=== PATIENT | female | born 1950 | race Two or more races ===

== ENCOUNTER 2024-08-24 03:20 | Inpatient (IN) | payer OTHER, MEDICAID ==
[~2024-08-24] VITALS: Ht 165.1 cm; Wt 68.5 kg
[~2024-08-24 03:20] MED LIST: ACYC1TAB2 PO; ASPI81CH59 PO; ENAL1TAB48 PO; GABA800T97 PO; GLIP5TAB21 PO; HYDR-4798 PO; LIDO1PAD55 EX; MET25T PO; NIFE1TAB31 PO; PANT40TA57 PO; ROSU10TA16 PO
[2024-08-24 04:00] VITALS: PULSE 99; RESP 22; O2SAT 95
--- NOTE | 2024-08-24 04:15 | ED.PDOC ---
Altered Mental Status HPI Comments 73-year-old female brought in by EMS presents with a chief complaint of ALOC x 1 hour with cough and foul smelling urine. Per EMS, patients daughter found patient urinating in the doorway and states that it had a foul odor to it. Patient is normally A/Ox4 at baseline, but cannot recall her birthday, the day of the week, what next month is, or who the president is. Patient was febrile per EMS at 100F. Blood sugar on arrival was 193. Chief Complaint: ALOC Time Seen by MD: 03:31 Reviewed Notes: Medications, Allergies Allergies: Coded Allergies: NO KNOWN ALLERGIES (Unverified , 08/24/24) Information Source: Emergency Med Personnel Mode of Arrival: EMS Severity: Unable to Care for Self Timing: Hours Duration: Since onset Prehospital treatment: Accucheck (193) Quality: Change in Behavior, Confusion Recent: None Past Medical History PAST MEDICAL HISTORY: DM, High Lipids, HTN Surgical History: Denies all surgeries GAS MAKER History: Denies all GAS MAKER Hx Family History Family History: Reviewed,noncontributory to illness Social History Smoker: Non-Smoker Alcohol: Denies ETOH Use Drugs: Denies Drug Use Lives In: Home Constitutional: denies: chills, diaphoresis, fatigue, fever, malaise, sweats, weakness, others EENTM: denies: blurred vision, double vision, ear bleeding, ear discharge, ear drainage, ear pain, ear ringing, eye pain, eye redness, hearing loss, mouth pain, mouth swelling, nasal discharge, nose bleeding, nose congestion, nose pain, photophobia, tearing, throat pain, throat swelling, voice changes, others Respiratory: reports: cough; denies: hemoptysis, orthopnea, SOB at rest, shortness of breath, SOB with excertion, stridor, wheezing, others Cardiovascular: denies: chest pain, dizzy spells, diaphoresis, Dyspnea on exertion, edema, irregular heart beat, left arm pain, lightheadedness, palpitations, PND, syncope, others Gastrointestinal: denies: abdomen distended, abdominal pain, blood streaked bowels, constipated, diarrhea, dysphagia, difficulty swallowing, hematemesis, melena, nausea, poor appetite, poor fluid intake, rectal bleeding, rectal pain, vomiting, others Genitourinary: reports: others (Foul Odor Urine ); denies: abnormal vagina bleeding, burning, dyspareunia, dysuria, flank pain, frequency, hematuria, incontinence, pain, , vagina discharge, urgency Neurological: denies: dizziness, fainting, headache, left sided numbness, left sided weakness, numbness, paresthesia, pre-existing deficit, right sided numbness, right sided weakness, seizure, speech problems, tingling, tremors, weakness, others Musculoskeletal: denies: back pain, gout, joint pain, joint swelling, muscle pain, muscle stiffness, neck pain, others Integumetry: denies: bruises, change in color, change in hair/nails, dryness, laceration, lesions, lumps, rash, wounds, others Allergic/Immunocompromised: denies: Difficulty Healing, Frequent Infections, Hives, Itching, others Hematologic/Lymphatic: denies: anemia, blood clots, easy bleeding, easy bruising, swollen glands, others Endocrine: denies: excessive hunger, excessive sweating, excessive thirst, excessive urination, flushing, intolerance to cold, intolerance to heat, unexplained weight gain, unexplained weight loss, others Psychiatric: denies: anxiety, bipolar disorder, depression, hopeless, panic disorder, schizophrenia, sleepless, suicidal, others Unable to Obtain due to: Altered Mental Status All Other Systems: Reviewed and Negative Physical Exam General Appearance: No Apparent Distress, Normal HEENT: Normal ENT Inspection, Pharynx Normal, TMs Normal Neck: Full Range of Motion, Non-Tender, Normal, Normal Inspection Respiratory: Chest Non-Tender, Lungs Clear, No Accessory Muscle Use, No Respiratory Distress, Normal Breath Sounds Cardiovascular: No Edema, No JVD, No Murmur, No Gallop, Normal Peripheral Pulses, Regular Rate/Rhythm Breast Exam: Deferred Gastrointestinal: No Organomegaly, Non Tender, No Pulsatile Mass, Normal Bowel Sounds, Soft Genitalia: Deferred Pelvic: Deferred Rectal: Deferred Extremities: No calf tenderness, Normal capillary refill, Normal inspection, N ormal range of motion, Non-tender, No pedal edema Musculoskeletal : Apperance: Normal Neurologic: Alert, title i paraprofessional II-XII nml as Tested, No Motor Deficits, Normal Affect, Normal Mood, No Sensory Deficits Cerebellar Function: Normal Reflexes: Normal Skin: Dry, Normal Color, Warm Lymphatic: No Adenopathy Was a procedure done? Was a procedure done?: No Differential Diagnosis (ALOC) Differential Diagnosis: Dehydration, Sepsis, Hypoxemia, Seizure X-Ray, Labs, Meds, VS Vital Signs Date Time Temp Pulse Resp B/P (MAP) Pulse Ox O2 Delivery O2 Flow Rate FiO2 08/24/24 04:00 100.7 99 22 208/107 (140) 95 100.7 08/24/24 04:00 99 22 95 Room Air* 0 21 08/24/24 03:25 100.9 101 14 188/87 (120) 94 Lab Test 08/24/24 05:28 08/24/24 04:13 Range/Units Troponin I High Sensitivity Pending 35 *H </=34 ng/L White Blood Count 9.7 4.4-10.8 10^3/uL Red Blood Count 5.25 H 4.0-5.20 10^6/uL Hemoglobin 12.3 12.2-16.2 g/dL Hematocrit 39.4 36.0-46.0 % Mean Corpuscular Volume 75.1 L 80.0-100.0 fL Mean Corpuscular Hemoglobin 23.5 L 28.0-32.0 pg Mean Corpuscular Hemoglobin Concent 31.3 L 32.0-36.0 g/dL Red Cell Distribution Width 14.9 H 11.8-14.3 % Platelet Count 236 140-450 10^3/uL Mean Platelet Volume 7.9 6.9-10.8 fL Neutrophils (%) (Auto) 84.0 H 37.0-80.0 % Lymphocytes (%) (Auto) 6.0 L 10.0-50.0 % Monocytes (%) (Auto) 9.1 0.0-12.0 % Eosinophils (%) (Auto) 0.1 0.0-7.0 % Basophils (%) (Auto) 0.8 0.0-2.0 % Neutrophils # (Auto) 8.1 1.6-8.6 10 ^3/uL Lymphocytes # (Auto) 0.6 0.4-5.4 10 ^3/uL Monocytes # (Auto) 0.9 0-1.3 10 ^3/uL Eosinophils # (Auto) 0 0-0.8 10 ^3/uL Basophils # (Auto) 0.1 0-0.2 10 ^3/uL Nucleated Red Blood Cells 0.2 % Platelet Estimate Pending Sodium Level 139 136-145 mmol/L Potassium Level 4.4 3.5-5.1 mmol/L Chloride Level 108 H 98-107 mmol/L Carbon Dioxide Level 19 L 20-31 mmol/L Anion Gap 12 5-15 Blood Urea Nitrogen 23 9-23 mg/dL Creatinine 1.98 H 0.550-1.02 mg/dL Glomerular Filtration Rate Calc 26 >90 mL/min BUN/Creatinine Ratio 11.6 10.0-20.0 Serum Glucose 180 H 74-106 mg/dL Lactic Acid Level 1.3 0.4-2.0 mmol/L Calcium Level 9.8 8.7-10.4 mg/dL Total Bilirubin 0.3 0.2-1.0 mg/dL Aspartate Amino Transferase (AST) 22 13-40 U/L Alanine Aminotransferase (ALT) 15 7-40 U/L Alkaline Phosphatase 99 46-116 U/L Total Protein 7.6 5.7-8.2 g/dL Albumin 4.3 3.2-4.8 g/dL Lipase 27 12-53 U/L Time of 1ST Reevaluation: 04:01 Reevaluation 1ST: Unchanged Patient Education/Counseling: Diagnosis, Treatment, Prognosis Family Education/Counseling: Diagnosis, Treatment, Prognosis Departure 1 Departure Time of Disposition: 05:57 (Patient with signs concerning for sepsis. Patient was not given the full fluid bolus because patient has signs of volume overload and congestion on her chest x-ray. We will empirically cover patient with antibiotics and admit patient for further workup.) Impression: Primary Impression: Fever Qualified Codes: R50.9 - Fever, unspecified Additional Impression: Metabolic encephalopathy Disposition: ADMITTED INPATIENT Admit to: Med Surg Condition: Serious Critical Care Note Critical Care Time?: Yes Critical care comment: Concern for sepsis and altered mental status Authorized and Performed by: Christiano Dsouza MD Total critical care time: Approximately 34 minutes Due to a high probability of clinically significant, life threatening deterioration, the patient required my highest level of preparedness to intervene emergently and I personally spent this critical care time directly and personally managing the patient. This critical care time included obtaining a history; examining the patient; pulse oximetry; ordering and review of studies; arranging urgent treatment with development of a management plan; evaluation of patient's response to treatment; frequent reassessment; and, discussions with other providers. This critical care time was performed to assess and manage the high probability of imminent, life-threatening deterioration that could result in multi-organ failure. It was exclusive of separately billable procedures and treating other patients and teaching time. Please see my other sections and the rest of the note for further information on patient assessment and treatment. Stability Stability form required: No I personally scribed for CHRISTIANO DSOUZA MD ([email or web address]) on 08/24/24 at 04:15. Electronically submitted by Kaiser Beauchamp ([email or web address]). CHRISTIANO DSOUZA MD Aug 24, 2024 04:15
[2024-08-24 04:41] LABS: Basophils # (auto) 0.1 10 ^3/uL (0-0.2); Eosinophils # (auto) 0 10 ^3/uL (0-0.8); Eosinophils % (auto) 0.1 % (0.0-7.0); Lymphocytes # (auto) 0.6 10 ^3/uL (0.4-5.4)
[2024-08-24 04:43] LABS: Basophils % (auto) 0.8 % (0.0-2.0); Hematocrit 39.4 % (36.0-46.0); Hemoglobin 12.3 g/dL (12.2-16.2); Mean Corpuscular Hemoglobin 23.5 pg (28.0-32.0); Mean Corpuscular Hgb Conc. 31.3 g/dL (32.0-36.0); Mean Corpuscular Volume 75.1 fL (80.0-100.0); Monocytes # (auto) 0.9 10 ^3/uL (0-1.3); Monocytes % (auto) 9.1 % (0.0-12.0); Neutrophils # (auto) 8.1 10 ^3/uL (1.6-8.6); Nucleated Red Blood Cells % 0.2 %; Platelet Count (auto) 236 10^3/uL (140-450); Red Blood Cells 5.25 10^6/uL (4.0-5.20); Red Cell Distribution Width 14.9 % (11.8-14.3); White Blood Cell 9.7 10^3/uL (4.4-10.8)
--- NOTE | 2024-08-24 05:09 | DVH ---
CHEST RADIOGRAPH Indication: ams Technique: Single frontal view of the chest was obtained COMPARISON: None FINDINGS: Lines and Tubes: None Lungs: Congestion Pleura: No effusion. No pneumothorax. Cardiomediastinal contours: Cardiomegaly Bones: Unremarkable IMPRESSION: Congestion
[2024-08-24 05:16] LABS: Alanine Aminotransferase 15 U/L (7-40); Albumin 4.3 g/dL (3.2-4.8); Alkaline Phosphatase 99 U/L (46-116); Anion Gap 12 (5-15); Aspartate Aminotransferase 22 U/L (13-40); BUN/Creatinine Ratio 11.6 (10.0-20.0); Bilirubin, Total 0.3 mg/dL (0.2-1.0); Blood Urea Nitrogen 23 mg/dL (9-23); Calcium 9.8 mg/dL (8.7-10.4); Carbon Dioxide 19 mmol/L (20-31); Chloride 108 mmol/L (98-107); Glucose 180 mg/dL (74-106); Lipase 27 U/L (12-53); Potassium 4.4 mmol/L (3.5-5.1); Sodium 139 mmol/L (136-145); Total Protein 7.6 g/dL (5.7-8.2)
[2024-08-24] MEDS: ACETAMINOPHEN 325 MG TAB PO ONE (06:40)
[2024-08-24] MEDS: CEFEPIME 2GM/50ML NS 50 ML IV ONE (06:40)
[2024-08-24] MEDS: LABETALOL HCL 20 MG/4 ML VL IV ONE (06:43)
[2024-08-24 06:53] LABS: Hypochromia Moderate; Platelet Estimate Adequate
[2024-08-24 07:30] VITALS: PULSE 86; RESP 24; O2SAT 96
--- NOTE | 2024-08-24 08:09 | DVHHP2 ---
History of Present Illness Reason for Visit: ams History of Present Illness 73-year-old female past medical history diabetes hyperlipidemia hypertension stage 3 kidney disease 30% kidney function no surgical history chief complaint per daughter patient was doing fine. She states a late till 1:00 a.m. with her other daughter. They state that they had normal hearing gout in last night and then she went to bed and got up at 3:00 a.m. and mom went to the bathroom but she stated it when her mom came out of the bathroom she acted strain she squatted in front of the shoe rack and said she was going to the bathroom so they thought there was very strength also the mom was naked and that never happened. Usually her mom self consciousness about her personality likes to be covered so they felt that she was not accurate herself and they stated that usually she can speak full sentences and conversations with her but they state she does not say much information she does say yes to almost everything but her since it was not complete as before. They were concerned about this so they brought her in for evaluation. Patient denies any chest pain denies any shortness with the breath. When I arrived there was no CT scan of the of the brain completed so I had ordered it and also ask for neurology consult due to patient's appearance she was consistent with ischemic stroke. Patient was given labetalol in the ER due to blood pressure being to 10/30/2000 Tylenol was given cefepime was given CBC was unremarkable creatinine was 1.98 lactate was 1.3 chest x-ray shows congestion without history CHF troponin was positive x2 likely NSTEMI type 2 the [place] ischemia NIH stroke scale was 13. Patient also found to have mild right upper arm weakness. Patient also found not to respond immediately to questions. Patient is only alert to name. With these findings we will admit and do further stroke workup Review of Systems Constitutional: No: Fever, Chills, Sweats, Weakness, Malaise, Other Eyes: No: Pain, Vision change, Conjunctivae inflammation, Eyelid inflammation, Other, Redness ENT: No: Ear pain, Ear discharge, Nose pain, Nose discharge, Nose congestion, Mouth pain, Mouth swelling, Throat pain, Throat swelling, Other Respiratory: No: Cough, Dry, Shortness of breath, SOB with excertion, Wheezing, Hemoptysis, Pleuritic Pain, Sputum, Wheezing, Other Cardiovascular: No: Chest Pain, Palpitations, Orthopnea, Paroxysmal Noc. Dyspnea, Edema, Lt Headedness, Other Gastrointestinal: No: Nausea, Vomiting, Abdominal Pain, Diarrhea, Constipation, Melena, Hematochezia, Other Genitourinary: No Dysuria, No Frequency, No Incontinence, No Hematuria, No Retention, No Other Musculoskeletal: No: other, neck pain, shoulder pain, arm pain, back pain, hand pain, leg pain, foot pain Skin: No: Rash, Lesions, Jaundice, Bruising, Other Neurological: Change in speech, Confusion; No: Weakness, Numbness, Incoordination, Seizures, Other Allergies: Coded Allergies: NO KNOWN ALLERGIES (Unverified , 08/24/24) Exam Vital Signs Vital Signs Date Time Temp Pulse Resp B/P (MAP) Pulse Ox O2 Delivery O2 Flow Rate FiO2 08/24/24 06:43 97 213/105 08/24/24 06:40 100.6 08/24/24 06:00 17 96 08/24/24 04:00 Room Air* 0 21 General Appearance: Alert, Cooperative, Other (Alert to name) HEENT: Atraumatic, PERRLA, EOMI, Mucous membr. moist/pink Respiratory: Clear to auscultation, Normal air movement Cardiovascular: Regular rate, Normal S1, Normal S2, No murmurs Abdominal: Normal bowel sounds, Soft, No tenderness, No hepatospenomegaly, No masses Extremities: No clubbing, No cyanosis, No edema, Normal pulses, No tenderness/swelling Skin: No rashes, No breakdown, No significant lesion Neuro: Other (Mild right-sided weakness/only answer yes to certain questions very limited in communication) Labs/Xrays CT scan of the brain was called unremarkable Chest x-ray shows congestion I reviewed labs, imaging CT scan abdomen pelvis, EKG and all diagnostic studies on this patient from ED records and the medical chart Labs Test 08/24/24 07:44 08/24/24 04:13 Range/Units White Blood Count 9.7 4.4-10.8 10^3/uL Red Blood Count 5.25 H 4.0-5.20 10^6/uL Hemoglobin 12.3 12.2-16.2 g/dL Hematocrit 39.4 36.0-46.0 % Mean Corpuscular Volume 75.1 L 80.0-100.0 fL Mean Corpuscular Hemoglobin 23.5 L 28.0-32.0 pg Mean Corpuscular Hemoglobin Concent 31.3 L 32.0-36.0 g/dL Red Cell Distribution Width 14.9 H 11.8-14.3 % Platelet Count 236 140-450 10^3/uL Mean Platelet Volume 7.9 6.9-10.8 fL Neutrophils (%) (Auto) 84.0 H 37.0-80.0 % Lymphocytes (%) (Auto) 6.0 L 10.0-50.0 % Monocytes (%) (Auto) 9.1 0.0-12.0 % Eosinophils (%) (Auto) 0.1 0.0-7.0 % Basophils (%) (Auto) 0.8 0.0-2.0 % Neutrophils # (Auto) 8.1 1.6-8.6 10 ^3/uL Lymphocytes # (Auto) 0.6 0.4-5.4 10 ^3/uL Monocytes # (Auto) 0.9 0-1.3 10 ^3/uL Eosinophils # (Auto) 0 0-0.8 10 ^3/uL Basophils # (Auto) 0.1 0-0.2 10 ^3/uL Nucleated Red Blood Cells 0.2 % Platelet Estimate Adequate Hypochromasia (manual) Moderate Microcytosis Slight Schistocytes Few Sodium Level 139 136-145 mmol/L Potassium Level 4.4 3.5-5.1 mmol/L Chloride Level 108 H 98-107 mmol/L Carbon Dioxide Level 19 L 20-31 mmol/L Anion Gap 12 5-15 Blood Urea Nitrogen 23 9-23 mg/dL Creatinine 1.98 H 0.550-1.02 mg/dL Glomerular Filtration Rate Calc 26 >90 mL/min BUN/Creatinine Ratio 11.6 10.0-20.0 Serum Glucose 180 H 74-106 mg/dL Lactic Acid Level 1.3 0.4-2.0 mmol/L Calcium Level 9.8 8.7-10.4 mg/dL Total Bilirubin 0.3 0.2-1.0 mg/dL Aspartate Amino Transferase (AST) 22 13-40 U/L Alanine Aminotransferase (ALT) 15 7-40 U/L Alkaline Phosphatase 99 46-116 U/L Total Protein 7.6 5.7-8.2 g/dL Albumin 4.3 3.2-4.8 g/dL Lipase 27 12-53 U/L Assessment/Plan Assessment/Plan acute metabolic encephalopathy likely stroke las well know time 0300 (will need to consider hemorrhage stroke) pt with asphasia and right upper arm weakness no ct scan or brain ordered, will order fu results will hold blood thinners until ct scan completed since negative ct will provide asa cxr shows congestion but no sob seen on exam ordered rpr, tsh and vit b 12 fu results ordered uds fu results ordered ua fu results did call blue [facility] Neurology consult pending eval and recs will ordered mri brain Stroke protocol and precautions PT OT eval and treat npo for now until swallow evaluation ordered hydralazine prn elevated blood pressure for permissive htn with goal Lower SBP to < 185, DBP to < 110 Goal MAP < 130 neuro checks q2h bed rest ordered Carotid Doppler study ordered Echo to eval for cardiac function consider cards if abnormal results ordered ammonia level Can called blue sergio as needed to help with neurological needs rad stat read negative for acute bleed or ischemic stroke old infarct seen per Dr. Rinaldi [id number] Dr. Dennis neurology called and felt might be ischemic stroke recs rule out other causes of confusion like covid testing infection that might be causing problems did rec mri priscilla and asa and atorvatin team may call if need neurology fu acute hypertension emergency pt found with bp 191/103 per family ordered metoprolol can provide hydralazine prn for permissive htn Lower SBP to < 185, DBP to < 110 Goal MAP < 130 acute pulmonary congestion might be new onset CHF found on cxr ordered echo fu result ordered lasix for now strict i/o's ordered cards consult fu recs uncontrolled type 2 dm iss and accucheck chronic hld ordered lipid panel ordered atorvatin acute elevation in crea with hx ckd stage 3 chronic (30% function) monitor for uptrend ordered urine sodium and crea to check fena acute elvation in trop likely nstemi type 2 pt found to have congestion in cxr trend trop ekg no stemi ordered lasix ordered echo fu results strict i/o's fen/ppx npo for now hl scd hold dvt ppx until ct scan completed no gi ppx since no hx of gerds or gi bleed plan admit to tele neurology consult and cards consult since new findings of congestion Plan discussed with: Patient My Orders Orders - BUSTOS,GO M DNP Procedure Category Date Status Time Ct Head Cva CT 08/24/24 Verified 07:46 Carotid Duplx W Color US 08/24/24 Verified DOP 07:46 Echo 2d Mode Cardiac US 08/24/24 Verified DOP 07:46 Thyroid Stimulating LAB 08/24/24 Verified Hormone 07:46 RPR LAB 08/24/24 Verified 07:46 Vitamin B12 LAB 08/24/24 Verified 07:46 Code Status CODE 08/24/24 Verified 07:46 Vital Signs [facility] 08/24/24 Verified 07:46 Bedrest [facility] 08/24/24 Verified Npo (Nothing By DIET 08/24/24 Verified Mouth) Diet Breakfast Expense Clerk [facility] 08/24/24 Verified Strict Aspiration MACKENZIE 08/24/24 Verified Precautions May Elevate Hob ____ MACKENZIE 08/24/24 Verified Degrees Fall Precautions [facility] 08/24/24 Verified Initiated Sequential [facility] 08/24/24 Verified Compression Device Obtain Daily Weight [facility] 08/24/24 Verified 07:46 Notify Provider [facility] 08/24/24 Verified Metoprolol Tartrate [facility] 08/24/24 Verified Tablet (Lopressor Ta 10:00 Acetaminophen Tablet [facility] 08/24/24 Verified (Tylenol Tablet) 08:00 Atorvastatin (Lipitor) [facility] 08/24/24 Verified 22:00 Oxygen By Nasal RT 08/24/24 Verified Cannula 07:46 Basic Metabolic Panel LAB 08/24/24 Verified 07:46 Complete Blood Count LAB 08/24/24 Verified 07:46 Date of Service: Aug 24, 2024 Billing Provider: GO BUSTOS DNP Common Visit Codes: [id number] INP/OBS CARE (HIGH), [id number] INP/OBS CARE(HIGH) (Total critical care time: Approximately 45 minutes This critical care time included obtaining a history; examining the patient; pulse oximetry; ordering and review of studies; arranging urgent treatment with development of a management plan; evaluation of patient's response to treatment; frequent reassessment; and, discussions with other providers.) GO BUSTOS DNP Aug 24, 2024 08:09
[2024-08-24 08:13] LABS: Anion Gap 10 (5-15); Carbon Dioxide 22 mmol/L (20-31); Chloride 107 mmol/L (98-107); Potassium 4.3 mmol/L (3.5-5.1); Sodium 139 mmol/L (136-145)
[2024-08-24 08:14] LABS: Calcium 9.8 mg/dL (8.7-10.4)
[2024-08-24 08:19] LABS: BUN/Creatinine Ratio 11.3 (10.0-20.0)
[2024-08-24 08:21] LABS: Cholesterol 184 mg/dL (< 200); HDL Cholesterol 45 mg/dL (40-59)
[2024-08-24 08:22] LABS: Blood Urea Nitrogen 27 mg/dL (9-23); Glucose 204 mg/dL (74-106); LDL Cholesterol 105 mg/dL (< 100); Phosphorus 5.3 mg/dL (2.4-5.1); Triglycerides 177 mg/dL (< 150)
--- NOTE | 2024-08-24 08:29 | DVH ---
EXAM: CT STROKE CTH INDICATION: eval for acute ischemic stroke TECHNIQUE: CT of the head without intravenous contrast. Coronal and sagittal reformatted images are submitted. Radiation Dose : 1. Head: CT Dose: CTDI volume is 54 mGy. Dose-length product is 864 mGy*cm The dose indicators for CT are the volume Computed Tomography (CT) Dose Index (CTDIvol) and the Dose Length Product (DLP), and are measured in units of mGy and mGy-cm, respectively. These indicators are not patient dose, but values generated from the CT scanner acquisition factors. The report includes radiation exposure data for exposures received during this examination. All CT scans at this medical facility are performed using dose modulation techniques as appropriate to a performed exam including the following: Automated exposure control was utilized; adjustment of the MA and/or KV according to patient size; and use of iterative reconstruction technique. COMPARISON: None FINDINGS: There is no evidence of acute intracranial hemorrhage, extra-axial collection, mass effect, midline s hift, herniation or hydrocephalus. There are periventricular and subcortical hypodensities, nonspecific, but likely reflecting sequelae of chronic microvascular ischemic changes. The ventricles, sulci and cisterns are age appropriate. The rosen-white differentiation is intact. The visualized paranasal sinuses and mastoid air cells are clear. No depressed calvarial fracture. The surrounding soft tissues are unremarkable. IMPRESSION: 1. No evidence acute intracranial abnormality.
--- NOTE | 2024-08-24 08:42 | BSKYNEURO ---
[facility] Note # Demographics Consult Type: Acute Stroke Level 2 (4.5-24 hrs) Patient Location: Emergency Room First Name: NELY Last Name: LISA Date of : 1950 Age: 73 Gender: Female Facility: [facility] Time of Initial Page (): 08/24/2024, 07:42 Time of Return Call (): 08/24/2024, 07:42 # HPI History: 73 y/o F who p/w AMS and aphasia. LKN 0300 # Scores Time of exam and NIHSS (): 08/24/2024, 07:46 Level of Consciousness 1a: [1] = Not alert; but arousable by minor stim LOC Questions 1b: [2] = Answers neither correctly LOC Commands 1c: [0] = Performs both tasks correctly Best Gaze 2: [0] = Normal Visual 3: [0] = No visual loss Facial Palsy 4: [0] = Normal symmetrical movements Motor Arm Left 5a: [1] = Drift Motor Arm Right 5b: [1] = Drift Motor Leg Left 6a: [2] = Some effort against gravity Motor Leg Right 6b: [2] = Some effort against gravity Limb Ataxia 7: [0] = Absent Sensory 8: [0] = Normal Best Language 9: [2] = Severe aphasia Dysarthria 10: [1] = [id number] dysarthria Extinction and Inattention 11: [0] = No abnormality NIHSS Total: 12 # Assessment Impression: - Altered Mental Status - Ischemic Stroke (Acute) No obvious focality with extremities. # Plan Thrombolytic/Intervention: NOT IV Thrombolysis or IA Intervention candidate Thrombolytic Exclusion: > 4.5 hours Intraarterial Exclusion: - clinical exam not consistent with presence of large vessel occlusion (LVO), can reconsider if LVO found on vascular imaging creatinine 2.4 so avoiding contrast nephropathy Target Blood Pressure: - SBP < 220 - DBP < 105 Labs: - ua - urine drug screen infectious workup Imaging: (urgency: routine): - MRI Brain without contrast -MRA head and neck Diagnostic Test: - echo without bubble study Medication: - aspirin 325 mg daily - start statin with goal of LDL < 70 Other: - If patient has any neurological deterioration please call me back immediately - I have discussed my recommendations with the referring provider - telemetry monitoring Disposition: admit # Logistics Attestation of consult completion: The patient is located at: [facility]. Facility staff participated in the visit. I performed this telemedicine visit from my offsite office utilizing interactive 2 way audio and visual telecommunication technology. Consent: Verbal consent was unable to be obtained due to patient condition, lack of family presence, or emergent nature of consult. Total time spent in telemedicine encounter: I spent 20 minutes reviewing clinical data and/or imaging, obtaining history, examining the patient, communicating with the onsite care team, and in preparation of this report. # Demographics First Name: NELY Last Name: GONZALEZ Facility: [facility] Yes YASMANI CUNNINGHAM MD Aug 24, 2024 08:42
[2024-08-24] MEDS: ASPirin 325 MG TAB PO ONE (08:55)
[2024-08-24] MEDS ORDERED: NITROGLYCERIN 0.4 MG SL TAB SL PRN (09:00)
--- NOTE | 2024-08-24 09:14 | DVH ---
Carotid Duplex Clinical History: eval for vascular occlusion Comparison: None Technique: Duplex Doppler evaluation of the extracranial carotid and vertebral arteries including color Doppler and spectral/pulsed waveform analysis was performed. Findings: RIGHT SIDE: The peak systolic velocities are 85 cm/s in the CCA, 91 cm/s in the ICA. The ICA/CCA ratio is 1.1. The external carotid artery is patent with peak systolic velocity of 76 cm/s proximally. Internal carotid artery stent is patent. There is appropriate antegrade flow in the right vertebral artery. LEFT SIDE: The peak systolic velocities are 81 cm/s in the CCA, 73 cm/s in the ICA. The ICA/CCA ratio is 0.9. The external carotid artery is patent with peak systolic velocity of 68 cm/s proximally. There is appropriate antegrade flow in the left vertebral artery. IMPRESSION: No hemodynamically significant stenosis noted in the right carotid system. No hemodynamically significant stenosis noted in the left carotid system. Reference: Radiology 2003; 229:340-346 Normal ICA PSV is <125 cm/sec and no plaque or intimal thickening is visible sonographically additional criteria include ICA/CCA PSV ratio <2.0 and ICA EDV <40 cm/sec <50% ICA stenosis ICA PSV is <125 cm/sec and plaque or intimal thickening is visible sonographically additional criteria include ICA/CCA PSV ratio <2.0 and ICA EDV <40 cm/sec 50-69% ICA stenosis ICA PSV is 125-230 cm/sec and plaque is visible sonographically additional criteria include ICA/CCA PSV ratio of 2.0-4.0 and ICA EDV of 40-100 cm/sec 70% ICA stenosis but less than near occlusion ICA PSV is >230 cm/sec and visible plaque and luminal narrowing are seen at rosen-scale and color Dopp ler ultrasound (the higher the Doppler parameters lie above the threshold of 230 cm/sec, the greater the likelihood of severe disease) additional criteria include ICA/CCA PSV ratio >4 and ICA EDV >100 cm/sec
--- NOTE | 2024-08-24 10:23 | DVH ---
MRI BRAIN WITHOUT CONTRAST CLINICAL HISTORY: eval for ischemic stroke TECHNIQUE: Limited noncontrast MR brain study was performed with axial diffusion and T2 weighted images and sagi ttal T1 images provided. Comparison: None FINDINGS: [Findings] The provided MR images are moderately degraded by motion artifact. There is no obvious restricted dif fusion. There is likely a chronic infarct in the right occipital lobe. There are chronic small-vessel periventricular white matter ischemic changes. There is no evidence of mass, mass effect or midline shift. There is no hydrocephalus or obvious extra-axial fluid collection. The calvarium demonstrates normal marrow signal. The paranasal sinuses and mastoid air cells are clear. IMPRESSION: 1. Limited MR study with limited MR sequences / images provided which are moderately degraded by madina on artifact. 2. There is no obvious restricted diffusion to suggest acute infarct. There is likely a chronic infar ct in the right occipital lobe. HS:Y
[2024-08-24] MEDS: METOPROLOL TARTRATE 50 MG TAB PO SCH (10:29)
[2024-08-24 10:57] LABS: Urine Bacteria None Seen /hpf (None Seen)
[2024-08-24 11:21] LABS: Urine Blood TRACE /uL (Negative); Urine Clarity Clear (Clear); Urine Color Light-Yellow (Yellow); Urine Protein, UAD 3+ (Negative); Urine Specific Gravity 1.016 (1.001-1.035); Urine Squamous Epithelial Cell None Seen /hpf (<5); Urine Urobilinogen Normal (Negative); Urine WBC 1 /hpf (0 - 5); Urine pH 6.5 (5.0-9.0)
[2024-08-24 11:28] LABS: Creatinine, Urine 80.43 mg/dL (30.0-125.0)
[2024-08-24] MEDS: InsuLIN REG 1unit/0.01ml Soln (100units/ml) SC SCH (12:00)
[2024-08-24] MEDS: ACCU-CHEK COMFORT CURVE STRIP VI SCH (12:00)
[2024-08-24 12:08] LABS: Free T3 2.18 pg/mL (2.3-4.2); Free T4 (Free Thyroxine) 1.05 ng/dL (0.89-1.76)
[2024-08-24 12:27] LABS: Erythrocyte Sedimentation Rate 33 mm/hr (0-20)
--- NOTE | 2024-08-24 13:09 | DVHSR ---
APPROVED REPORT EXAM: Two-dimensional and M-mode echocardiogram with Doppler and color Doppler. Blood Pressure: 213/105 mmHg INDICATION eval for cardiac function and ef RISK FACTORS Obesity: Height: 5'5, Weight: 190 DIMENSIONS LVDd4.3 (3.8-5.7cm)LA (2D)3.2 (1.9-4.0cm)Aortic Root3.2 (2.0-3.7cm) LVDs3.2 (2.5-4.0cm)LA (MM) (1.9-4.0cm)Aortic Cusp Exc1.8 (1.5-2.0cm) EF (%) 50.0 (55-70%)Rt. Atrium2.7 (1.9-4.0cm)Asc. Aorta3.1 cm IVSd1.1 (0.7-1.1cm)RV (D) (1.8-2.4cm) PWd1.1 (0.7-1.1cm) Mitral Valve MitralMitral Stenosis E wave0.37m/sMV Mean GR.mmHg A wave0.93m/sMV Peak GR.46mmHg E/A ratio0.42D MVAcm2 DECEL [id number] 1/2 Timems Aortic Valve Aortic ValveAortic Stenosis V10.80m/Erna Mean GR.3mmHg V21.11m/Erna Peak GR.5mmHg LVOT Diameter2.3 (1.8-2.4cm)Doppler AVA2.99cm2 Pulmonic Valve V21.06m/s Other Information Quality : Technically LimitedRhythm : Technically limited study due to patient position. Conclusion Moderately reduced left ventricular systolic function estimated ejection fraction of 40-35%. There i s anterior anteroseptal anteroapical wall severe hypokinesia. There is a grade 1 diastolic dysfuncti on. Normal right ventricular size and dimension. Normal right ventricular systolic function. Normal biatrial size and dimension. Normal aortic valve structure and function. Normal mitral valve structure and function. Normal tricuspid valve structure and function. The pulmonary valve is grossly normal. No pericardial effusion.
--- NOTE | 2024-08-24 14:15 | ECG ---
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
[2024-08-24] MEDS: hydrALAZINE HCL 20 MG/ML VL IV PRN (14:47)
[2024-08-24] MEDS: MORPHINE SULFATE INJ 2 MG/ml SYRG IV PRN (14:49)
[2024-08-24 15:54] VITALS: RESP 16
[2024-08-24 16:00] VITALS: BP 192/84; PULSE 65; RESP 16; TEMP 98.3; O2SAT 97
[2024-08-24 20:00] VITALS: PULSE 75
[2024-08-24 20:51] VITALS: BP 143/67; PULSE 75; RESP 20; TEMP 97.9; O2SAT 93
[2024-08-24] MEDS ORDERED: GABA300T4 PO (21:52)
[2024-08-24] MEDS: ATORVASTATIN 20 MG TAB PO SCH (22:00)
[2024-08-25] VITALS (11 sets, daily range): BP systolic 133–171; BP diastolic 63–91; PULSE 62–82; RESP 14–20; TEMP 97.9–98.9; O2SAT 92–96
[2024-08-25] MEDS: KETOROLAC TROMETH 30 MG/ML 1ML VIAL IV ONE (06:05)
[2024-08-25 06:06] LABS: Creatine Kinase CKMB 2.7 ng/mL (0.0-5.3)
[2024-08-25 08:07] LABS: RPR Non Reactive (Non Reactive)
[2024-08-25] MEDS ORDERED: ASPirin 81 mg TAB PO SCH (10:00)
--- NOTE | 2024-08-25 10:42 | DVHPN2 ---
Reviewed: Care Plan, H&P, Labs, Medications, Previous Orders, Radiology Changes from previous H/P or p: No Changes Eyes: No Pain, No Vision change, No Conjunctivae inflammation, No Eyelid inflammation, No Other, No Redness ENT: No Ear pain, No Ear discharge, No Nose pain, No Nose discharge, No Nose congestion, No Mouth pain, No Mouth swelling, No Throat pain, No Throat swelling, No Other Cardiovascular: No Chest Pain, No Palpitations, No Orthopnea, No Paroxysmal Noc. Dyspnea, No Edema, No Lt Headedness, No Other Respiratory: No Cough, No Dry, No Shortness of breath, No SOB with excertion, No Wheezing, No Hemoptysis, No Pleuritic Pain, No Sputum, No Other Gastrointestinal: No Nausea, No Vomiting, No Abdominal Pain, No Diarrhea, No Constipation, No Melena, No Hematochezia, No Other Genitourinary: No Dysuria, No Frequency, No Incontinence, No Hematuria, No Retention, No Other Musculoskeletal: No other, No neck pain, No shoulder pain, No arm pain, No back pain, No hand pain, No leg pain, No foot pain Skin: No Rash, No Lesions, No Jaundice, No Bruising, No Other Objective Vitals Vital Signs Date Time Temp Pulse Resp B/P (MAP) Pulse Ox O2 Delivery O2 Flow Rate FiO2 08/25/24 08:48 98.9 82 18 153/72 (99) 94 98.9 08/24/24 20:00 Room Air* 0 21 Intake/Output Intake and Output 08/25/24 07:00 Intake Total 820 ml Output Total 1900 ml Balance -1080 ml Intake Oral 820 ml Output Urine Total 1900 ml Medications Current Medications Medications Dose Ordered Sig/Drew Route Start Time Stop Time Status Last Admin Dose Admin Metoprolol Tartrate 50 mg Q12HR PO 08/24/24 10:00 08/24/24 10:29 50 MG Acetaminophen 325 mg Q6HP PRN PO 08/24/24 08:00 Atorvastatin Calcium 20 mg HS PO 08/24/24 22:00 Diagnostic Test (Pha) 1 strip Q6HR 08/24/24 12:00 08/25/24 06:05 1 STRIP Insulin Human Regular Q6HR SC 08/24/24 12:00 08/25/24 06:12 3 UNITS Aspirin 81 mg DAILY PO 08/25/24 10:00 Nitroglycerin 0.4 mg Q5MINP PRN SL 08/24/24 09:00 Hydralazine HCl 10 mg Q6HR PRN IV 08/24/24 14:30 08/25/24 04:14 10 MG Morphine Sulfate 2 mg Q6HPRN PRN IV 08/24/24 14:30 08/24/24 14:49 2 MG Laboratory Results Laboratory Tests 08/24/24 04:13 08/24/24 07:44 Urinalysis Test 08/24/24 10:48 Urine Color Light-yellow (Yellow) Urine Clarity Clear (Clear) Urine pH 6.5 (5.0-9.0) Urine Specific [place] 1.016 (1.001-1.035) Urine Protein 3+ (Negative) H Urine Ketones Trace (Negative) Urine Blood Trace /uL (Negative) H Urine Nitrite Negative (Negative) Urine Bilirubin Negative (Negative) Urine Urobilinogen Normal mg/dL (Negative) Urine Leukocyte Esterase Negative /uL (Negative) Urine RBC 6 /hpf (0 - 4) Urine WBC 1 /hpf (0 - 5) Urine Squamous Epithelial Cells None seen /hpf (<5) Urine Bacteria None seen /hpf (None Seen) Urine Creatinine 80.43 mg/dL (30.0-125.0) Urine Sodium 94 mmol/L (40-220) Urine Glucose 2+ mg/dL (Normal) H Microbiology Microbiology Date/Time Source Procedure Growth Status 08/24/24 04:13 Blood Blood Culture - Preliminary NO GROWTH AFTER 24 HOURS OF INCUBATION. Resulted Labs and/or images reviewed: Labs reviewed by me, Image(s) reviewed by me Assessment/Plan Assessment/Plan Acute metabolic encephalopathy Influenza type A positive: Tamiflu 30 mg p.o. b.i.d. 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 Sonny Ortega appreciated: Aspirin 325 mg p.o. daily, Lipitor 40 mg p.o. daily, CT head and MRI brain shows old left occipital infarct Hypertensive emergency with blood pressure 208/107 metoprolol, cardiology consult for Dr. Peguero appreciated, echocardiogram 35 % ejection fraction, advised outpatient ischemic cardiac workup Uncontrolled diabetes blood sugar 184 Hypercholesterolemia Lipitor CKD 3 : Nephrology consult by Dr. Martins appreciated, kidney ultrasound negative Hypercholesterolemia: Lipitor Carotid ultrasound negative Mild elevation of troponin 48 Elevated D-dimer 2.27 DVT ruled out Will order V/Q scan to rule out PE Patient with multiple comorbidities Time spent 65 minutes Condition guarded Advanced care planning time 20 minutes Patient is full code Discussed the diagnosis management poor prognosis with the patient's daughter Rylie Scott [phone] at bedside and with the other daughter Tigist [phone] on the phone Plan discussed with: Patient My Orders Orders - ERNESTO DELCID MD Procedure Category Date Status Time Covid19 Antigen [facility]ett LAB 08/25/24 Logged Rapid Influenza A&B LAB 08/25/24 Logged 10:31 D-Dimer LAB 08/25/24 Logged 10:34 Communication Order ORDERS 08/25/24 Transmitted 10:34 Blood Culture BUSTER 08/25/24 Transmitted 10:35 Urine Bacterial BUSTER 08/25/24 Transmitted Culture 10:35 Date of Service: Aug 25, 2024 Billing Provider: ERNESTO DELCID MD Common Visit Codes: [id number] CARE 30-74 MIN ERNESTO DELCID MD Aug 25, 2024 10:42
[2024-08-25] MEDS ORDERED: ATORVASTATIN 20 MG TAB PO SCH (11:00)
--- NOTE | 2024-08-25 12:22 | DVHINCON2 ---
Date Seen: Aug 25, 2024 Referring Physician MD Edwin Reason for Consultation Hypertensive emergency/Acute ischemic stroke History of Present Illness This is a 73-year-old female who presented to the emergency room via EMS with a chief complaint of an altered level of consciousness for 1 hour. At time of assessment, the patient was found A&O x2, very somnolent, and with sitter at bedside. Information obtained from records which state the patient's daughter found her urinating at the doorway and reporting foul urinary odor. It was reported she was found with a temperature 100 F and blood sugar level of 193 ng/dL by EMS. She underwent a 12 lead electrocardiogram revealing a sinus rhythm suggestive of left ventricular hypertrophy and right atrial enlargement. Serial troponin levels peaked at 48 ng/L. Significant medical history includes hypertension, dyslipidemia, peripheral neuropathy, and chronic kidney disease stage 3. Past Medical History Past medical history reviewed. No other significant than mentioned above. Past Surgical History Unknown past surgical history. Family History: Diabetes mellitus G8 MOTHER Hypertension G8 MOTHER Malignant neoplasm of breast G8 SISTER Malignant neoplasm of ovary G8 SISTER Family History Unknown family history. Social History Unknown social history. Allergies: Coded Allergies: NO KNOWN ALLERGIES (Unverified , 08/24/24) Home Meds Reported Medications Hydrocodone-Acetaminophen (Hydrocodone Bitartrate/AC 10-325 mg) 1 Tab Tab, 1 TAB PO QID, TAB 08/24/24 Gabapentin (Once-Daily) (Gabapentin) 300 Mg Tab, 800 MG PO QID, TAB 08/24/24 Home Meds Home medications reviewed. Current Medications Current Medications Medications (Trade) Dose Ordered Sig/Drew Route PRN Reason Start Time Stop Time Status Last Admin Atorvastatin Calcium (Lipitor) 20 mg HS PO 08/24/24 22:00 08/25/24 10:53 DC Aspirin 81 mg DAILY PO 08/25/24 10:00 08/25/24 10:53 DC Hydralazine HCl (Apresoline Injection) 10 mg Q6HR PRN IV SBP>160 08/24/24 14:30 08/25/24 04:14 Morphine Sulfate 2 mg Q6HPRN PRN IV SEVERE PAIN (7-10 PAIN SCALE) 08/24/24 14:30 08/25/24 10:59 DC 08/24/24 14:49 Aspirin (Ecotrin Enteric Coated Tablet) 325 mg DAILY PO 08/26/24 10:00 Atorvastatin Calcium (Lipitor) 40 mg HS PO 08/25/24 11:00 08/25/24 12:17 DC Atorvastatin Calcium (Lipitor) 40 mg HS PO 08/25/24 22:00 Review of Systems Constitutional: No symptom reported Ears, Nose, & Throat: No symptom reported Eyes: No symptom reported Neurological: ALOC Pulmonary/Respiratory: No symptom reported Cardiovascular: No symptom reported Gastrointestinal: No symptom reported Genitourinary: No symptom reported Musculoskeletal: No symptom reported Skin: No symptom reported Psychiatric: No symptom reported Endocrine: No symptom reported Hemotologic/Lymphatic: No symptom reported Vital Signs Vital Signs Date Time Temp Pulse Resp B/P (MAP) Pulse Ox O2 Delivery O2 Flow Rate FiO2 08/25/24 11:00 80 146/84 08/25/24 08:48 98.9 18 94 98.9 08/25/24 08:00 Room Air* 0 21 Physical Exam General Appearance: Well developed. Well nourished. In no acute distress Head Exam: Normal inspection Neck Exam: Normal inspection. Non-tender. Normal alignment Pulmonary/Respiratory: Chest non-tender. Diminished bilateral breath sounds Cardiovascular/Chest: Regular rate and rhythm. S1, S2. NSR. No murmurs. No JVD. Peripheral Pulses: 2+ Radial (R). 2+ Radial (L). 2+ Pedal (R). 2+ Pedal (L) Abdominal Exam: Normal bowel sounds. Soft. Nontender. No hepatospenomegaly. No masses Ankle Exam: Negative ankle edema Lower extremities: Negative lower extremity edema Neuro/Mental Status: A&O x2. Very somnolent Thoughts/Psych: Unable to assess. Somnolent Appearance: In no acute distress Skin Exam: Normal inspection. Normal color. Warm. Dry Labs/Diagnostic Data Labs Test 08/25/24 11:26 08/25/24 11:20 08/24/24 11:05 08/24/24 10:48 Range/Units POC Glucose 209 H 70-106 mg/dl Erythrocyte Sedimentation Rate 33 H 0-20 mm/hr Ammonia < 10 L 11-32 umol/L Creatine Kinase MB 2.7 0.0-5.3 ng/mL Vitamin B12 Level 330 211-911 pg/mL Free Thyroxine (T4) Calculated 1.05 0.89-1.76 ng/dL Free Triiodothyronine (T3) pg/mL 2.18 L 2.3-4.2 pg/mL Rapid Plasma Reagin Non reactive Non Reactive Urine Color Light-yellow Yellow Urine Clarity Clear Clear Urine pH 6.5 5.0-9.0 Urine Specific [place] 1.016 1.001-1.035 Urine Protein 3+ H Negative Urine Ketones Trace Negative Urine Blood Trace H Negative /uL Urine Nitrite Negative Negative Urine Bilirubin Negative Negative Urine Urobilinogen Normal Negative mg/dL Urine Leukocyte Esterase Negative Negative /uL Urine RBC 6 0 - 4 /hpf Urine WBC 1 0 - 5 /hpf Urine Squamous Epithelial Cells None seen <5 /hpf Urine Bacteria None seen None Seen /hpf Urine Creatinine 80.43 30.0-125.0 mg/dL Urine Sodium 94 40-220 mmol/L Urine Glucose 2+ H Normal mg/dL Test 08/24/24 07:44 08/24/24 04:13 Range/Units Sodium Level 139 136-145 mmol/L Potassium Level 4.3 3.5-5.1 mmol/L Chloride Level 107 98-107 mmol/L Carbon Dioxide Level 22 20-31 mmol/L Anion Gap 10 5-15 Blood Urea Nitrogen 27 H 9-23 mg/dL Creatinine 2.40 H 0.550-1.02 mg/dL Glomerular Filtration Rate Calc 21 >90 mL/min BUN/Creatinine Ratio 11.3 10.0-20.0 Serum Glucose 204 H 74-106 mg/dL Calcium Level 9.8 8.7-10.4 mg/dL Phosphorus Level 5.3 H 2.4-5.1 mg/dL Troponin I High Sensitivity 48 *H </=34 ng/L Triglycerides Level 177 H < 150 mg/dL Cholesterol Level 184 < 200 mg/dL LDL Cholesterol 105 H < 100 mg/dL HDL Cholesterol 45 40-59 mg/dL Thyroid Stimulating Hormone (TSH) 0.24 L 0.55-4.78 uIU/mL White Blood Count 9.7 4.4-10.8 10^3/uL Red Blood Count 5.25 H 4.0-5.20 10^6/uL Hemoglobin 12.3 12.2-16.2 g/dL Hematocrit 39.4 36.0-46.0 % Mean Corpuscular Volume 75.1 L 80.0-100.0 fL Mean Corpuscular Hemoglobin 23.5 L 28.0-32.0 pg Mean Corpuscular Hemoglobin Concent 31.3 L 32.0-36.0 g/dL Red Cell Distribution Width 14.9 H 11.8-14.3 % Platelet Count 236 140-450 10^3/uL Mean Platelet Volume 7.9 6.9-10.8 fL Neutrophils (%) (Auto) 84.0 H 37.0-80.0 % Lymphocytes (%) (Auto) 6.0 L 10.0-50.0 % Monocytes (%) (Auto) 9.1 0.0-12.0 % Eosinophils (%) (Auto) 0.1 0.0-7.0 % Basophils (%) (Auto) 0.8 0.0-2.0 % Neutrophils # (Auto) 8.1 1.6-8.6 10 ^3/uL Lymphocytes # (Auto) 0.6 0.4-5.4 10 ^3/uL Monocytes # (Auto) 0.9 0-1.3 10 ^3/uL Eosinophils # (Auto) 0 0-0.8 10 ^3/uL Basophils # (Auto) 0.1 0-0.2 10 ^3/uL Nucleated Red Blood Cells 0.2 % Platelet Estimate Adequate Hypochromasia (manual) Moderate Microcytosis Slight Schistocytes Few Lactic Acid Level 1.3 0.4-2.0 mmol/L Total Bilirubin 0.3 0.2-1.0 mg/dL Aspartate Amino Transferase (AST) 22 13-40 U/L Alanine Aminotransferase (ALT) 15 7-40 U/L Alkaline Phosphatase 99 46-116 U/L Total Protein 7.6 5.7-8.2 g/dL Albumin 4.3 3.2-4.8 g/dL Lipase 27 12-53 U/L Microbiology Date/Time Source Procedure Growth Status 08/24/24 04:13 Blood Blood Culture - Preliminary NO GROWTH AFTER 24 HOURS OF INCUBATION. Resulted Assessment Questionable sepsis Acute on chronic decompensated HFrEF, NYHA Class III Hypertensive urgency Likely CHAD on CKD NSTEMI, likely type 2 secondary to above Dyslipidemia Hx of CVA Plan/Recommendation We will continue the following plan/recommendations (Dr. Urrutia): * Echocardiogram revealed EF 35-40% * There is anterior anteroseptal anteroapical wall severe hypokinesia * Outpatient ischemic work-up. Not a candidate given CHAD/Sepsis * Aggressive blood pressure control for a target SBP <140 mmHg * Continue BB. Add Nifedipine. Avoid nephrotoxic agents. * Preload and afterload reduction. Initiate Lasix * Single-antiplatelet therapy (on ASA 325mg per Neurology team) and lipid- lowering agent * Initiate broad spectrum abx therapy rest of septic work-up per primary care team * Initiate nephrology consultation * Initiate DVT/VTE prophylaxis Brain MRI reviewed with no evidence of an acute infarct neither acute embolic findings. It revealed a chronic infarct in the right occipital lobe. ALOC likely secondary to other medical processes. Consider reviewing images, discrepancy with consultations for Cardio/Neuro for a reported acute embolic stroke. Please clarify. Thank you for allowing us to participate in this patient's care. Please call if you have any questions or concerns. This medical document was created using an electronic medical record system with voice recognition software and computerized dictation system. Although this document has been carefully reviewed, there might still be some phonetic and typographical errors. Occasional wrong-word or ``sound-alike substitutions may have occurred due to the inherent limitations of voice recognition software. These areas are purely typographical due to imperfections of the software programs and do not reflect any compromise in the patient's medical care. Please read the chart carefully and recognize, using context, where these substitutions have occurred. Plan discussed with: Other NYHA Physical activity limitations: Class3(Marked) ordinary (activity causes symtoms) Date of Service: Aug 25, 2024 Billing Provider: JUANITO URRUTIA MD Cardiology Common Codes: [id number] INP/OBS CARE (High) [facility] Aug 25, 2024 12:22
[2024-08-25] MEDS: NIFEdipine ER 30 MG TAB PO ONE (12:52)
[2024-08-25 13:44] LABS: COVID19 ANTIGEN SOFIA FIA NEGATIVE (NEGATIVE)
[2024-08-25 13:45] LABS: Rapid Influenza B Negative (Negative)
[2024-08-25] MEDS: FUROSEMIDE 40 MG/4 ML VIAL IV ONE (13:45)
[2024-08-25 13:47] LABS: Rapid Influenza A Positive (Negative)
[2024-08-25] MEDS: cefTRIAXone 1GM/50ML D5W 50 ML IV ONE (14:00)
[2024-08-25] MEDS ORDERED: DICL1GEL73 TD (15:14)
--- NOTE | 2024-08-25 15:14 | DVHINCON2 ---
Date of service: Aug 25, 2024 Referring Physician Katie Anthony NP Reason for Consultation Acute kidney injury History of Present Illness Patient is 73 y/o female with PMH of DM, High Lipids, HTN and CKD is admitted for ALOC and hypoglycemia after started a new insulin. On admission patient is found to have elevated BUN and creatinine, nephrology is consulted for CHAD Past Medical History PAST MEDICAL HISTORY: DM, High Lipids, HTN Past Surgical History Surgical History: Denies all surgeries Allergies: Coded Allergies: NO KNOWN ALLERGIES (Unverified , 08/24/24) Home Meds Reported Medications Metoprolol Tartrate (Lopressor) 25 Mg Tb, 1 MG PO BID for 90 Days, #180 0 Refills 08/25/24 Acyclovir (Acyclovir) 400 Mg Tab, 1 TAB PO TID for 60 Days, #180 08/25/24 Aspirin (Aspirin Low Dose) 81 Mg Chw, 1 TAB PO DAILY for 30 Days, #30 08/25/24 Glipizide (Glipizide) 5 Mg Tab, 1 TAB PO BID for 90 Days, #180 08/25/24 Lidocaine (Lidocaine) 5 % Pad, 1 PATCH EX DAILY for 30 Days, #30 08/25/24 Rosuvastatin Calcium (Crestor) 10 Mg Tab, 1 TAB PO DAILY for 90 Days, #90 08/25/24 Enalapril Maleate (Enalapril Maleate) 20 Mg Tab, 1 TAB PO DAILY for 90 Days, #90 08/25/24 Nifedipine (Nifedipine Er) 30 Mg Tab, 1 TAB PO DAILY for 30 Days, #30 08/25/24 Pantoprazole Sodium Sesquihydr (Pantoprazole Sodium Dr) 40 Mg Tab, 20 MG PO DAILY for 30 Days, #30 08/25/24 Diclofenac Sodium (Topical) (Diclofenac Sodium) 1 % Gel, 2 APPLIC TD BID for 25 Days, #100 08/25/24 Gabapentin (Gabapentin) 800 Mg Tab, 1 TAB PO QID for 30 Days, #120 08/25/24 Hydrocodone-Acetaminophen (Hydrocodone Bitartrate/AC 10-325 mg) 1 Tab Tab, 1 TAB PO QID for 30 Days 08/24/24 Discontinued Reported Medications Gabapentin (Once-Daily) (Gabapentin) 300 Mg Tab, 800 MG PO QID, TAB 08/24/24 Current Medications Current Medications Medications (Trade) Dose Ordered Sig/Drew Route PRN Reason Start Time Stop Time Status Last Admin Aspirin (Ecotrin Enteric Coated Tablet) 325 mg DAILY PO 08/26/24 10:00 Atorvastatin Calcium (Lipitor) 40 mg HS PO 08/25/24 11:00 08/25/24 12:17 DC Atorvastatin Calcium (Lipitor) 40 mg HS PO 08/25/24 22:00 08/25/24 21:49 Nifedipine (Procardia Xl (Time-Release)) 60 mg DAILY PO 08/26/24 10:00 08/26/24 09:52 Furosemide (Lasix Injection) 20 mg BIDD IV 08/26/24 06:00 08/26/24 06:09 Enoxaparin Sodium (Lovenox) 30 mg DAILY SC 08/26/24 10:00 08/26/24 09:53 Ceftriaxone Sodium 50 ml @ 100 mls/hr DAILY@09 IV 08/26/24 09:00 08/26/24 09:53 Oseltamivir Phosphate (Tamiflu 30MG Capsule) 30 mg DAILY@2200 PO 08/25/24 22:00 08/30/24 21:59 08/25/24 21:48 Azithromycin 250 ml @ 125 mls/hr DAILY IV 08/26/24 10:00 Gabapentin (Neurontin Capsule) 300 mg BID PO 08/26/24 10:00 08/26/24 09:51 Acetaminophen/ Hydrocodone Bitart ([place] 10/325MG Tab) 1 tab Q6HP PRN PO SEVERE PAIN (7-10 PAIN SCALE) 08/26/24 08:30 Guaifenesin/ Dextromethorphan (Robitussin-Dm Liquid) 10 ml TID PO 08/26/24 14:00 Family History: Diabetes mellitus G8 MOTHER Hypertension G8 MOTHER Malignant neoplasm of breast G8 SISTER Malignant neoplasm of ovary G8 SISTER Review of Systems All 12 item review of systems reviewed with the patient nonsignificant except what is mentioned in the history of present illness H&P Exam Vital Signs/I&O Vital Sign Date Time Temp Pulse Resp B/P (MAP) Pulse Ox O2 Delivery O2 Flow Rate FiO2 08/26/24 09:52 136/69 08/26/24 09:52 64 08/26/24 09:08 99.3 24 92 99.3 08/26/24 08:00 Room Air* 0 21 Intake and Output 08/25/24 08/26/24 19:00 07:00 Intake Total 2010 ml 0 ml Output Total 425 ml 450 ml Balance 1585 ml -450 ml Intake Oral 2010 ml 0 ml Output Urine Total 425 ml 450 ml Physical Exam Patient is awake alert Lungs clear to auscultation bilaterally Cardiac exam regular rate and rhythm GI soft nontender was normal Extremities no clubbing cyanosis or edema Neuro nonfocal Labs/Diagnostic Data Labs/Diagnostic Data Laboratory Tests Test 08/26/24 06:21 08/26/24 00:40 08/25/24 17:39 08/25/24 16:53 Range/Units POC Glucose 121 H 199 H 153 H 70-106 mg/dl Phosphorus Level 6.2 H 2.4-5.1 mg/dL Magnesium Level 1.9 1.6-2.6 mg/dL Vitamin D 25-Hydroxy 50.2 30.0-100 ng/mL Test 08/25/24 15:00 08/25/24 11:26 08/25/24 11:20 08/25/24 05:59 Range/Units D-Dimer, Quantitative 2.27 H 0.0-0.49 mg/L FEU B-Type Natriuretic Peptide 114.75 0-100 pg/mL Parathyroid Hormone (Intact) 62.9 18.4-80.1 pg/mL POC Glucose 209 H 184 H 70-106 mg/dl Influenza Type A Antigen Positive Negative Influenza Type B Antigen Negative Negative SARS-CoV-2 Antigen (Rapid) Negative NEGATIVE Test 08/24/24 23:36 08/24/24 17:32 08/24/24 11:05 08/24/24 10:48 Range/Units POC Glucose 178 H 236 H 70-106 mg/dl Erythrocyte Sedimentation Rate 33 H 0-20 mm/hr Ammonia < 10 L 11-32 umol/L Creatine Kinase MB 2.7 0.0-5.3 ng/mL Vitamin B12 Level 330 211-911 pg/mL Free Thyroxine (T4) Calculated 1.05 0.89-1.76 ng/dL Free Triiodothyronine (T3) pg/mL 2.18 L 2.3-4.2 pg/mL Rapid Plasma Reagin Non reactive Non Reactive Urine Color Light-yellow Yellow Urine Clarity Clear Clear Urine pH 6.5 5.0-9.0 Urine Specific [place] 1.016 1.001-1.035 Urine Protein 3+ H Negative Urine Ketones Trace Negative Urine Blood Trace H Negative /uL Urine Nitrite Negative Negative Urine Bilirubin Negative Negative Urine Urobilinogen Normal Negative mg/dL Urine Leukocyte Esterase Negative Negative /uL Urine RBC 6 0 - 4 /hpf Urine WBC 1 0 - 5 /hpf Urine Squamous Epithelial Cells None seen <5 /hpf Urine Bacteria None seen None Seen /hpf Urine Creatinine 80.43 30.0-125.0 mg/dL Urine Sodium 94 40-220 mmol/L Urine Glucose 2+ H Normal mg/dL Test 08/24/24 07:44 08/24/24 05:28 08/24/24 04:13 Range/Units Sodium Level 139 139 136-145 mmol/L Potassium Level 4.3 4.4 3.5-5.1 mmol/L Chloride Level 107 108 H 98-107 mmol/L Carbon Dioxide Level 22 19 L 20-31 mmol/L Anion Gap 10 12 5-15 Blood Urea Nitrogen 27 H 23 9-23 mg/dL Creatinine 2.40 H 1.98 H 0.550-1.02 mg/dL Glomerular Filtration Rate Calc 21 26 >90 mL/min BUN/Creatinine Ratio 11.3 11.6 10.0-20.0 Serum Glucose 204 H 180 H 74-106 mg/dL Calcium Level 9.8 9.8 8.7-10.4 mg/dL Phosphorus Level 5.3 H 2.4-5.1 mg/dL Troponin I High Sensitivity 48 *H 41 *H 35 *H </=34 ng/L Triglycerides Level 177 H < 150 mg/dL Cholesterol Level 184 < 200 mg/dL LDL Cholesterol 105 H < 100 mg/dL HDL Cholesterol 45 40-59 mg/dL Thyroid Stimulating Hormone (TSH) 0.24 L 0.55-4.78 uIU/mL White Blood Count 9.7 4.4-10.8 10^3/uL Red Blood Count 5.25 H 4.0-5.20 10^6/uL Hemoglobin 12.3 12.2-16.2 g/dL Hematocrit 39.4 36.0-46.0 % Mean Corpuscular Volume 75.1 L 80.0-100.0 fL Mean Corpuscular Hemoglobin 23.5 L 28.0-32.0 pg Mean Corpuscular Hemoglobin Concent 31.3 L 32.0-36.0 g/dL Red Cell Distribution Width 14.9 H 11.8-14.3 % Platelet Count 236 140-450 10^3/uL Mean Platelet Volume 7.9 6.9-10.8 fL Neutrophils (%) (Auto) 84.0 H 37.0-80.0 % Lymphocytes (%) (Auto) 6.0 L 10.0-50.0 % Monocytes (%) (Auto) 9.1 0.0-12.0 % Eosinophils (%) (Auto) 0.1 0.0-7.0 % Basophils (%) (Auto) 0.8 0.0-2.0 % Neutrophils # (Auto) 8.1 1.6-8.6 10 ^3/uL Lymphocytes # (Auto) 0.6 0.4-5.4 10 ^3/uL Monocytes # (Auto) 0.9 0-1.3 10 ^3/uL Eosinophils # (Auto) 0 0-0.8 10 ^3/uL Basophils # (Auto) 0.1 0-0.2 10 ^3/uL Nucleated Red Blood Cells 0.2 % Platelet Estimate Adequate Hypochromasia (manual) Moderate Microcytosis Slight Schistocytes Few Lactic Acid Level 1.3 0.4-2.0 mmol/L Total Bilirubin 0.3 0.2-1.0 mg/dL Aspartate Amino Transferase (AST) 22 13-40 U/L Alanine Aminotransferase (ALT) 15 7-40 U/L Alkaline Phosphatase 99 46-116 U/L Total Protein 7.6 5.7-8.2 g/dL Albumin 4.3 3.2-4.8 g/dL Lipase 27 12-53 U/L Assessment Acute kidney injury superimposed Chronic Kidney Disease secondary to hemodynamic mediated Congestive heart failure ejection fraction 35% Diabetes mellitus type 2 Status post hypoglycemia Hypertension Hyperlipidemia Recommendations Closely monitor fluid and electrolytes Avoid nephrotoxic medications Strict I&Os Check urine electrolytes and urine protein excretion Check kidney ultrasound Insulin sliding scale Blood pressure control We will continue to follow Patient seen and examined by myself. I discussed my plan of care with the patient, her daughter and the primary nurse at the bedside I would like to thank Katie for the consult, will follow up Plan discussed with: Patient TAYLOR WILSON MD Aug 25, 2024 15:14
--- NOTE | 2024-08-25 16:59 | DVH ---
US KIDNEY INDICATION: umm TECHNIQUE: Multiple real-time sonographic images of the kidneys and bladder were obtained. COMPARISON: None FINDINGS: The right kidney measures 9.3 cm in length, which is normal in size. There is normal echogenicity of the right kidney. No hydronephrosis. The left kidney measures 9.1 cm in length, which is normal in size. There is normal echogenicity of t he left kidney. No hydronephrosis. There is a small 1.3 x 1 x 1.2 cm anechoic lesion in the left kidn ey most likely a simple cyst. Juarez catheter is noted in the bladder. IMPRESSION: 1. Normal sonographic appearance of the kidneys. No hydronephrosis. 2. Right kidney measures 9.3 cm. Left kidney measures 9.1 cm. 3. No abnormal cortical thinning . There is mild increased echogenicity to the renal cortex bilatera lly. 4. There is a 1.3 cm cyst in the left kidney.
[2024-08-25 18:14] LABS: Magnesium 1.9 mg/dL (1.6-2.6)
[2024-08-25 18:53] LABS: Phosphorus 6.2 mg/dL (2.4-5.1)
--- NOTE | 2024-08-25 19:53 | DVH ---
Bilateral lower extremity venous duplex Clinical History: Elevated d-dimer Comparison: None Technique: Duplex Doppler evaluation of the deep venous systems of both lower extremities from the common femora l veins to the popliteal veins including color Doppler and spectral/pulsed waveform analysis was perf ormed. Findings: RIGHT SIDE: The common femoral vein demonstrates appropriate compressibility and waveform variability. Right greater saphenous vein is not visualized. The femoral vein demonstrates appropriate compressibility and waveform variability. The deep femoral vein demonstrates appropriate compressibility and waveform variability. The popliteal vein demonstrates appropriate compressibility and waveform variability. There is normal compressibility at the tibioperoneal trunk. LEFT SIDE: The common femoral vein demonstrates appropriate compressibility and waveform variability. There is compressibility/patency of the great saphenous vein at the proximal thigh. The femoral vein demonstrates appropriate compressibility and waveform variability. The deep femoral vein demonstrates appropriate compressibility and waveform variability. The popliteal vein demonstrates appropriate compressibility and waveform variability. There is normal compressibility at the tibioperoneal trunk. Impression: No right or left femoropopliteal venous thrombosis.
[2024-08-25] MEDS: OSELTAMIVIR 30 MG CAP PO SCH (21:48)
[2024-08-25] MEDS: ATORVASTATIN 20 MG TAB PO SCH (21:49)
[2024-08-26] VITALS (7 sets, daily range): BP systolic 134–168; BP diastolic 62–69; PULSE 57–66; RESP 18–24; TEMP 97.9–99.3; O2SAT 92–95
[2024-08-26] MEDS: FUROSEMIDE 20 MG/2 ML VIAL IV SCH (06:09)
[2024-08-26] MEDS: ACETAMINOPHEN 325 MG TAB PO PRN (06:24)
[2024-08-26] MEDS ORDERED: AZITHROMYCIN 500MG/ 250ML 250 ML IV ONE (08:15)
[2024-08-26] MEDS: GABAPENTIN 300 MG CAP PO SCH (09:51)
[2024-08-26] MEDS: NIFEdipine ER 30 MG TAB PO SCH (09:52)
[2024-08-26] MEDS: cefTRIAXone 1GM/50ML D5W 50 ML IV SCH (09:53)
[2024-08-26] MEDS: ENOXAPARIN SOD 30 MG/0.3 ML SYRINGE SC SCH (09:53)
--- NOTE | 2024-08-26 10:49 | DVHPN2 ---
Progress Note Date Seen: Aug 26, 2024 Medical Necessity Reason Pt with a Central, PICC or Fol: No Subjective Patient reports: No new complaints Other Systems: Patient seen and examined by myself today in follow-up, daughter at bedside Objective vital signs Vital Sign Date Time Temp Pulse Resp B/P (MAP) Pulse Ox O2 Delivery O2 Flow Rate FiO2 08/26/24 09:52 136/69 08/26/24 09:52 64 08/26/24 09:08 99.3 24 92 99.3 08/26/24 08:00 Room Air* 0 21 Total Intake and Output 08/25/24 08/25/24 08/26/24 15:00 23:00 07:00 Intake Total 480 ml 1530 ml 0 ml Output Total 425 ml 450 ml Balance 480 ml 1105 ml -450 ml medications Current Medications Medications Dose Ordered Sig/Drew Route Start Time Stop Time Status Last Admin Dose Admin Metoprolol Tartrate 50 mg Q12HR PO 08/24/24 10:00 08/26/24 09:52 Acetaminophen 325 mg Q6HP PRN PO 08/24/24 08:00 08/26/24 06:24 Diagnostic Test (Pha) 1 strip Q6HR 08/24/24 12:00 08/26/24 06:09 Insulin Human Regular Q6HR SC 08/24/24 12:00 08/26/24 00:44 Nitroglycerin 0.4 mg Q5MINP PRN SL 08/24/24 09:00 Hydralazine HCl 10 mg Q6HR PRN IV 08/24/24 14:30 08/25/24 04:14 Aspirin 325 mg DAILY PO 08/26/24 10:00 Atorvastatin Calcium 40 mg HS PO 08/25/24 22:00 08/25/24 21:49 Nifedipine 60 mg DAILY PO 08/26/24 10:00 08/26/24 09:52 Furosemide 20 mg BIDD IV 08/26/24 06:00 08/26/24 06:09 Enoxaparin Sodium 30 mg DAILY SC 08/26/24 10:00 08/26/24 09:53 Ceftriaxone Sodium 50 ml @ 100 mls/hr DAILY@09 IV 08/26/24 09:00 08/26/24 09:53 Oseltamivir Phosphate 30 mg DAILY@2200 PO 08/25/24 22:00 08/30/24 21:59 08/25/24 21:48 Azithromycin 250 ml @ 125 mls/hr DAILY IV 08/26/24 10:00 Gabapentin 300 mg BID PO 08/26/24 10:00 08/26/24 09:51 Acetaminophen/ Hydrocodone Bitart 1 tab Q6HP PRN PO 08/26/24 08:30 Guaifenesin/ Dextromethorphan 10 ml TID PO 08/26/24 14:00 Examination: LUNGS:Normal, CVS:Normal, MSK:Normal laboratory and microbiology Laboratory Tests 08/24/24 07:44 08/24/24 04:13 Test 08/24/24 07:44 Range/Units Serum Glucose 204 H 74-106 mg/dL Microbiology Date/Time Source Procedure Growth Status 08/24/24 04:13 Blood Blood Culture - Preliminary NO GROWTH AFTER 48 HOURS OF INCUBATION. Resulted Problem List/Assessment/Plan Problem List/Assessment/Plan Acute kidney injury superimposed Chronic Kidney stage IIIB Disease secondary to hemodynamic mediated, ATN FeNa > 2% Congestive heart failure ejection fraction 35% Influenza a Diabetes mellitus type 2 Status post hypoglycemia Hypertension Hyperlipidemia Hyperphosphatemia Recommendations Kidney function slightly worsened today Increased urine output Strict I&Os Check urine protein excretion kidney ultrasound reported bilateral cortical thinning Insulin sliding scale Blood pressure control Calcium acetate t.i.d. with meals Renal diet We will continue to follow Plan discussed with: Patient My Orders My Orders Orders - TAYLOR WILSON MD Procedure Category Date Status Time Kidney US 08/25/24 Resulted 15:17 Urine Sodium LAB 08/25/24 Logged 15:17 Urine LAB 08/25/24 Logged Protein/Creatinine 15:17 TAYLOR WILSON MD Aug 26, 2024 10:49
[2024-08-26] MEDS: ASPirin-EC 325mg tab PO SCH (12:06)
[2024-08-26] MEDS: HYDROcodone-ACET 10/325MG TAB PO PRN (12:06)
[2024-08-26] MEDS: CALCIUM ACETATE 667 MG CAP PO SCH (12:07)
[2024-08-26] MEDS: AZITHROMYCIN 500MG/ 250ML 250 ML IV SCH (12:47)
--- NOTE | 2024-08-26 13:12 | DVHPN2 ---
Consult Progress Note Date Seen: Aug 26, 2024 Subjective Review of Systems: CVS:Normal, RESPIRATORY:Normal, NEURO:Normal Other Systems: A&O x 4. Denies any cardiac symptoms Objective vital signs Vital Sign Date Time Temp Pulse Resp B/P (MAP) Pulse Ox O2 Delivery O2 Flow Rate FiO2 08/26/24 12:33 98.3 59 21 134/66 (88) 94 98.3 08/26/24 08:00 Room Air* 0 21 Total Intake and Output 08/25/24 08/25/24 08/26/24 15:00 23:00 07:00 Intake Total 480 ml 1530 ml 0 ml Output Total 425 ml 450 ml Balance 480 ml 1105 ml -450 ml medications Current Medications Medications Dose Ordered Sig/Drew Route Start Time Stop Time Status Last Admin Dose Admin Metoprolol Tartrate 50 mg Q12HR PO 08/24/24 10:00 08/26/24 09:52 50 MG Acetaminophen 325 mg Q6HP PRN PO 08/24/24 08:00 08/26/24 06:24 325 MG Diagnostic Test (Pha) 1 strip Q6HR 08/24/24 12:00 08/26/24 12:07 1 STRIP Insulin Human Regular Q6HR SC 08/24/24 12:00 08/26/24 12:23 4 UNITS Nitroglycerin 0.4 mg Q5MINP PRN SL 08/24/24 09:00 Hydralazine HCl 10 mg Q6HR PRN IV 08/24/24 14:30 08/25/24 04:14 10 MG Aspirin 325 mg DAILY PO 08/26/24 10:00 08/26/24 12:06 325 MG Atorvastatin Calcium 40 mg HS PO 08/25/24 22:00 08/25/24 21:49 40 MG Nifedipine 60 mg DAILY PO 08/26/24 10:00 08/26/24 09:52 60 MG Furosemide 20 mg BIDD IV 08/26/24 06:00 08/26/24 06:09 20 MG Enoxaparin Sodium 30 mg DAILY SC 08/26/24 10:00 08/26/24 09:53 30 MG Ceftriaxone Sodium 50 ml @ 100 mls/hr DAILY@09 IV 08/26/24 09:00 08/26/24 09:53 100 MLS/HR Oseltamivir Phosphate 30 mg DAILY@2200 PO 08/25/24 22:00 08/30/24 21:59 08/25/24 21:48 30 MG Azithromycin 250 ml @ 125 mls/hr DAILY IV 08/26/24 10:00 08/26/24 12:47 125 MLS/HR Gabapentin 300 mg BID PO 08/26/24 10:00 08/26/24 09:51 300 MG Acetaminophen/ Hydrocodone Bitart 1 tab Q6HP PRN PO 08/26/24 08:30 08/26/24 12:06 1 TAB Guaifenesin/ Dextromethorphan 10 ml TID PO 08/26/24 14:00 Calcium Acetate 667 mg TIDWMEALS PO 08/26/24 12:00 08/26/24 12:07 667 MG Examination: LUNGS:Normal, CVS:Normal, NEURO:Normal laboratory and microbiology Laboratory Tests 08/24/24 07:44 08/24/24 04:13 Test 08/24/24 07:44 Range/Units Serum Glucose 204 H 74-106 mg/dL Problem List/Assessment/Plan Problem List/Assessment/Plan Sepsis with influenza Type A Acute on chronic decompensated HFrEF, NYHA Class III Hypertensive urgency Likely CHAD on CKD NSTEMI, likely type 2 secondary to above Dyslipidemia Hx of CVA Plan/Recommendation (Dr. Urrutia) * Echocardiogram revealed EF 35-40% * There is anterior anteroseptal anteroapical wall severe hypokinesia * Outpatient ischemic work-up. Not a candidate given CHAD/Sepsis * Aggressive blood pressure control for a target SBP <140 mmHg * Continue BB. Add Nifedipine. Avoid nephrotoxic agents. * Single-antiplatelet therapy (on ASA 325mg per Neurology team) and lipid- lowering agent * Septic work-up per primary care team * Nephrology recommendations * DVT/VTE prophylaxis Brain MRI reviewed with no evidence of an acute infarct neither acute embolic findings. It revealed a chronic infarct in the right occipital lobe. Consider reviewing images, discrepancy with consultations for Cardio/Neuro for a reported acute embolic stroke. Please clarify with primary care team. ALOC likely secondary to sepsis with associated Influenza type A. The patient is cardiac stable at this time with a well controlled blood pressure. Advised to follow-up with primary coffee supervisor, Dr. Sheridan, in [place] as scheduled. There is no further cardiac work-up indicated at this time. Kindly call if in need to re-consult. Thank you for allowing us to participate in this patient's care. This medical document was created using an electronic medical record system with voice recognition software and computerized dictation system. Although this document has been carefully reviewed, there might still be some phonetic and typographical errors. Occasional wrong-word or ``sound-alike substitutions may have occurred due to the inherent limitations of voice recognition software. These areas are purely typographical due to imperfections of the software programs and do not reflect any compromise in the patient's medical care. Please read the chart carefully and recognize, using context, where these substitutions have occurred. Plan discussed with: Patient, Other Date of Service: Aug 26, 2024 Billing Provider: JUANITO URRUTIA MD Cardiology Common Codes: [id number] [facility] Aug 26, 2024 13:12
[2024-08-26] MEDS: guaiFENesin-DM 100/10mg/5ml SYR PO SCH (14:00)
[2024-08-26] MEDS: METOPROLOL TARTRATE 50 MG TAB PO SCH (22:11)
[2024-08-27] VITALS (8 sets, daily range): BP systolic 108–172; BP diastolic 54–70; PULSE 54–68; RESP 17–22; TEMP 97.8–98.4; O2SAT 91–94
--- NOTE | 2024-08-27 08:20 | DVHPN2 ---
Reviewed: Care Plan, H&P, Labs, Medications, Previous Orders, Radiology Changes from previous H/P or p: No Changes Eyes: No Pain, No Vision change, No Conjunctivae inflammation, No Eyelid inflammation, No Other, No Redness ENT: No Ear pain, No Ear discharge, No Nose pain, No Nose discharge, No Nose congestion, No Mouth pain, No Mouth swelling, No Throat pain, No Throat swelling, No Other Cardiovascular: No Chest Pain, No Palpitations, No Orthopnea, No Paroxysmal Noc. Dyspnea, No Edema, No Lt Headedness, No Other Respiratory: No Cough, No Dry, No Shortness of breath, No SOB with excertion, No Wheezing, No Hemoptysis, No Pleuritic Pain, No Sputum, No Other Gastrointestinal: No Nausea, No Vomiting, No Abdominal Pain, No Diarrhea, No Constipation, No Melena, No Hematochezia, No Other Genitourinary: No Dysuria, No Frequency, No Incontinence, No Hematuria, No Retention, No Other Musculoskeletal: No other, No neck pain, No shoulder pain, No arm pain, No back pain, No hand pain, No leg pain, No foot pain Skin: No Rash, No Lesions, No Jaundice, No Bruising, No Other Objective Vitals Vital Signs Date Time Temp Pulse Resp B/P (MAP) Pulse Ox O2 Delivery O2 Flow Rate FiO2 08/27/24 05:00 98.1 60 20 128/54 (78) 93 98.1 08/26/24 20:00 Room Air* 0 21 Intake/Output Intake and Output 08/27/24 07:00 Intake Total 1057 ml Output Total 700 ml Balance 357 ml Intake Oral 1057 ml Output Urine Total 700 ml Medications Current Medications Medications Dose Ordered Sig/Drew Route Start Time Stop Time Status Last Admin Dose Admin Acetaminophen 325 mg Q6HP PRN PO 08/24/24 08:00 08/26/24 06:24 325 MG Diagnostic Test (Pha) 1 strip Q6HR 08/24/24 12:00 08/27/24 05:41 1 STRIP Insulin Human Regular Q6HR SC 08/24/24 12:00 08/27/24 00:43 3 UNITS Nitroglycerin 0.4 mg Q5MINP PRN SL 08/24/24 09:00 Hydralazine HCl 10 mg Q6HR PRN IV 08/24/24 14:30 08/25/24 04:14 10 MG Aspirin 325 mg DAILY PO 08/26/24 10:00 08/26/24 12:06 325 MG Atorvastatin Calcium 40 mg HS PO 08/25/24 22:00 08/26/24 22:11 40 MG Enoxaparin Sodium 30 mg DAILY SC 08/26/24 10:00 08/26/24 09:53 30 MG Ceftriaxone Sodium 50 ml @ 100 mls/hr DAILY@09 IV 08/26/24 09:00 08/26/24 09:53 100 MLS/HR Oseltamivir Phosphate 30 mg DAILY@2200 PO 08/25/24 22:00 08/30/24 21:59 08/26/24 22:11 30 MG Azithromycin 250 ml @ 125 mls/hr DAILY IV 08/26/24 10:00 08/26/24 12:47 125 MLS/HR Gabapentin 300 mg BID PO 08/26/24 10:00 08/26/24 22:10 300 MG Acetaminophen/ Hydrocodone Bitart 1 tab Q6HP PRN PO 08/26/24 08:30 08/26/24 22:10 1 TAB Guaifenesin/ Dextromethorphan 10 ml TID PO 08/26/24 14:00 08/27/24 06:08 10 ML Calcium Acetate 667 mg TIDWMEALS PO 08/26/24 12:00 08/26/24 18:36 667 MG Furosemide 20 mg DAILY PO 08/27/24 10:00 Metoprolol Tartrate 25 mg Q12HR PO 08/26/24 22:00 08/26/24 22:11 25 MG Nifedipine 90 mg DAILY PO 08/27/24 10:00 Laboratory Results Laboratory Tests 08/24/24 04:13 08/24/24 07:44 Urinalysis Test 08/24/24 10:48 Urine Color Light-yellow (Yellow) Urine Clarity Clear (Clear) Urine pH 6.5 (5.0-9.0) Urine Specific [place] 1.016 (1.001-1.035) Urine Protein 3+ (Negative) H Urine Ketones Trace (Negative) Urine Blood Trace /uL (Negative) H Urine Nitrite Negative (Negative) Urine Bilirubin Negative (Negative) Urine Urobilinogen Normal mg/dL (Negative) Urine Leukocyte Esterase Negative /uL (Negative) Urine RBC 6 /hpf (0 - 4) Urine WBC 1 /hpf (0 - 5) Urine Squamous Epithelial Cells None seen /hpf (<5) Urine Bacteria None seen /hpf (None Seen) Urine Creatinine 80.43 mg/dL (30.0-125.0) Urine Sodium 94 mmol/L (40-220) Urine Glucose 2+ mg/dL (Normal) H Microbiology Microbiology Date/Time Source Procedure Growth Status 08/25/24 13:30 Blood Blood Culture - Preliminary NO GROWTH AFTER 24 HOURS OF INCUBATION. Resulted Labs and/or images reviewed: Labs reviewed by me, Image(s) reviewed by me Assessment/Plan Assessment/Plan Sepsis secondary to influenza type A Acute metabolic encephalopathy Influenza type A positive: Tamiflu 30 mg p.o. b.i.d. 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 Sonny Ortega appreciated: Aspirin 325 mg p.o. daily, Lipitor 40 mg p.o. daily, CT head and MRI brain shows old left occipital infarct Hypertensive emergency with blood pressure 208/107 metoprolol, cardiology consult for Dr. Peguero appreciated, echocardiogram 35 % ejection fraction, advised outpatient ischemic cardiac workup, placed on nifedipine metoprolol Acute on chronic decompensated systolic heart failure ejection fraction 40 percent Uncontrolled diabetes blood sugar 184 Hypercholesterolemia Lipitor CKD 3 : Nephrology consult by Dr. Martins appreciated, kidney ultrasound negative Hypercholesterolemia: Lipitor Carotid ultrasound negative Mild elevation of troponin 48 Elevated D-dimer 2.27 DVT ruled out Will order V/Q scan to rule out PE Patient with multiple comorbidities Time spent 65 minutes Condition guarded Advanced care planning time 20 minutes Patient is full code Discussed the diagnosis management poor prognosis with the patient's daughter Rylie Scott [phone] at bedside and with the other daughter Tigist [phone] on the phone Patient does not need a sitter Plan discussed with: Patient My Orders Orders - ERNESTO DELCID MD Procedure Category Date Status Time Hydrocodone-Acet PHA 08/26/24 In Process 10/325mg Tab ([place] 08:30 Guaifenesin-Dextromet PHA 08/26/24 In Process Liquid (Robitussin 14:00 Gabapentin Capsule PHA 08/26/24 In Process (Neurontin Capsule) 10:00 Date of Service: Aug 27, 2024 Billing Provider: ERNESTO DELCID MD Common Visit Codes: [id number] INP/OBS CARE(HIGH) ERNESTO DELCID MD Aug 27, 2024 08:20
[2024-08-27] MEDS: NIFEdipine ER 30 MG TAB PO SCH (10:31)
[2024-08-27] MEDS: FUROSEMIDE 20 MG TAB PO SCH (10:31)
--- NOTE | 2024-08-27 19:39 | DVHPN2 ---
Progress Note - Dictate Date Seen: Aug 27, 2024 Medical Necessity Reason Pt with a Central, PICC or Fol: No Subjective Patient seen earlier this afternoon, responsive vital signs Vital Sign Date Time Temp Pulse Resp B/P (MAP) Pulse Ox O2 Delivery O2 Flow Rate FiO2 08/27/24 17:00 98.4 54 20 150/57 (88) 91 98.4 08/27/24 08:00 Room Air* 0 21 Total Intake and Output 08/26/24 08/26/24 08/27/24 15:00 23:00 07:00 Intake Total 110 ml 510 ml 437 ml Output Total 400 ml 300 ml Balance 110 ml 110 ml 137 ml medications Current Medications Medications Dose Ordered Sig/Drew Route Start Time Stop Time Status Last Admin Dose Admin Acetaminophen 325 mg Q6HP PRN PO 08/24/24 08:00 08/26/24 06:24 325 MG Diagnostic Test (Pha) 1 strip Q6HR 08/24/24 12:00 08/27/24 18:15 1 STRIP Insulin Human Regular Q6HR SC 08/24/24 12:00 08/27/24 18:13 3 UNITS Nitroglycerin 0.4 mg Q5MINP PRN SL 08/24/24 09:00 Hydralazine HCl 10 mg Q6HR PRN IV 08/24/24 14:30 08/25/24 04:14 10 MG Aspirin 325 mg DAILY PO 08/26/24 10:00 08/27/24 10:41 325 MG Atorvastatin Calcium 40 mg HS PO 08/25/24 22:00 08/26/24 22:11 40 MG Enoxaparin Sodium 30 mg DAILY SC 08/26/24 10:00 08/27/24 10:29 30 MG Ceftriaxone Sodium 50 ml @ 100 mls/hr DAILY@09 IV 08/26/24 09:00 08/27/24 10:42 100 MLS/HR Oseltamivir Phosphate 30 mg DAILY@2200 PO 08/25/24 22:00 08/30/24 21:59 08/26/24 22:11 30 MG Azithromycin 250 ml @ 125 mls/hr DAILY IV 08/26/24 10:00 08/27/24 10:00 125 MLS/HR Gabapentin 300 mg BID PO 08/26/24 10:00 08/27/24 10:31 300 MG Acetaminophen/ Hydrocodone Bitart 1 tab Q6HP PRN PO 08/26/24 08:30 08/27/24 10:31 1 TAB Guaifenesin/ Dextromethorphan 10 ml TID PO 08/26/24 14:00 08/27/24 14:41 10 ML Calcium Acetate 667 mg TIDWMEALS PO 08/26/24 12:00 08/27/24 18:15 667 MG Furosemide 20 mg DAILY PO 08/27/24 10:00 08/27/24 10:31 20 MG Metoprolol Tartrate 25 mg Q12HR PO 08/26/24 22:00 08/27/24 10:30 25 MG Nifedipine 90 mg DAILY PO 08/27/24 10:00 08/27/24 10:31 90 MG objective gen: nad lungs: cta ext: no edema laboratory and microbiology Laboratory Tests 08/24/24 07:44 08/24/24 04:13 Test 08/24/24 07:44 Range/Units Serum Glucose 204 H 74-106 mg/dL Assessment/Plan Acute kidney injury superimposed Chronic Kidney stage IIIB 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
[2024-08-28] VITALS (8 sets, daily range): BP systolic 124–149; BP diastolic 59–84; PULSE 53–56; RESP 16–20; TEMP 97.9–98.7; O2SAT 90–96
--- NOTE | 2024-08-28 08:28 | DVHPN2 ---
Reviewed: Care Plan, H&P, Labs, Medications, Previous Orders, Radiology Changes from previous H/P or p: No Changes Eyes: No Pain, No Vision change, No Conjunctivae inflammation, No Eyelid inflammation, No Other, No Redness ENT: No Ear pain, No Ear discharge, No Nose pain, No Nose discharge, No Nose congestion, No Mouth pain, No Mouth swelling, No Throat pain, No Throat swelling, No Other Cardiovascular: No Chest Pain, No Palpitations, No Orthopnea, No Paroxysmal Noc. Dyspnea, No Edema, No Lt Headedness, No Other Respiratory: No Cough, No Dry, No Shortness of breath, No SOB with excertion, No Wheezing, No Hemoptysis, No Pleuritic Pain, No Sputum, No Other Gastrointestinal: No Nausea, No Vomiting, No Abdominal Pain, No Diarrhea, No Constipation, No Melena, No Hematochezia, No Other Genitourinary: No Dysuria, No Frequency, No Incontinence, No Hematuria, No Retention, No Other Musculoskeletal: No other, No neck pain, No shoulder pain, No arm pain, No back pain, No hand pain, No leg pain, No foot pain Skin: No Rash, No Lesions, No Jaundice, No Bruising, No Other Objective Vitals Vital Signs Date Time Temp Pulse Resp B/P (MAP) Pulse Ox O2 Delivery O2 Flow Rate FiO2 08/28/24 05:00 98.5 54 18 132/62 (85) 96 98.5 08/27/24 20:00 Room Air* 0 21 Intake/Output Intake and Output 08/28/24 07:00 Intake Total 1170 ml Output Total 250 ml Balance 920 ml Intake Oral 870 ml IV Total 300 ml Output Urine Total 250 ml Medications Current Medications Medications Dose Ordered Sig/Drew Route Start Time Stop Time Status Last Admin Dose Admin Acetaminophen 325 mg Q6HP PRN PO 08/24/24 08:00 08/26/24 06:24 325 MG Diagnostic Test (Pha) 1 strip Q6HR 08/24/24 12:00 08/28/24 05:37 1 STRIP Insulin Human Regular Q6HR SC 08/24/24 12:00 08/28/24 00:00 2 UNITS Nitroglycerin 0.4 mg Q5MINP PRN SL 08/24/24 09:00 Hydralazine HCl 10 mg Q6HR PRN IV 08/24/24 14:30 08/25/24 04:14 10 MG Aspirin 325 mg DAILY PO 08/26/24 10:00 08/27/24 10:41 325 MG Atorvastatin Calcium 40 mg HS PO 08/25/24 22:00 08/27/24 22:09 40 MG Enoxaparin Sodium 30 mg DAILY SC 08/26/24 10:00 08/27/24 10:29 30 MG Ceftriaxone Sodium 50 ml @ 100 mls/hr DAILY@09 IV 08/26/24 09:00 08/27/24 10:42 100 MLS/HR Oseltamivir Phosphate 30 mg DAILY@2200 PO 08/25/24 22:00 08/30/24 21:59 08/27/24 22:09 30 MG Azithromycin 250 ml @ 125 mls/hr DAILY IV 08/26/24 10:00 08/27/24 10:00 125 MLS/HR Gabapentin 300 mg BID PO 08/26/24 10:00 08/27/24 22:09 300 MG Acetaminophen/ Hydrocodone Bitart 1 tab Q6HP PRN PO 08/26/24 08:30 08/27/24 10:31 1 TAB Guaifenesin/ Dextromethorphan 10 ml TID PO 08/26/24 14:00 08/28/24 05:37 10 ML Calcium Acetate 667 mg TIDWMEALS PO 08/26/24 12:00 08/27/24 18:15 667 MG Furosemide 20 mg DAILY PO 08/27/24 10:00 08/27/24 10:31 20 MG Metoprolol Tartrate 25 mg Q12HR PO 08/26/24 22:00 08/27/24 22:09 25 MG Nifedipine 90 mg DAILY PO 08/27/24 10:00 08/27/24 10:31 90 MG Laboratory Results Laboratory Tests 08/24/24 04:13 08/24/24 07:44 Urinalysis Test 08/24/24 10:48 Urine Color Light-yellow (Yellow) Urine Clarity Clear (Clear) Urine pH 6.5 (5.0-9.0) Urine Specific [place] 1.016 (1.001-1.035) Urine Protein 3+ (Negative) H Urine Ketones Trace (Negative) Urine Blood Trace /uL (Negative) H Urine Nitrite Negative (Negative) Urine Bilirubin Negative (Negative) Urine Urobilinogen Normal mg/dL (Negative) Urine Leukocyte Esterase Negative /uL (Negative) Urine RBC 6 /hpf (0 - 4) Urine WBC 1 /hpf (0 - 5) Urine Squamous Epithelial Cells None seen /hpf (<5) Urine Bacteria None seen /hpf (None Seen) Urine Creatinine 80.43 mg/dL (30.0-125.0) Urine Sodium 94 mmol/L (40-220) Urine Glucose 2+ mg/dL (Normal) H Microbiology Microbiology Date/Time Source Procedure Growth Status 08/25/24 13:30 Blood Blood Culture - Preliminary NO GROWTH AFTER 48 HOURS OF INCUBATION. Resulted Labs and/or images reviewed: Labs reviewed by me, Image(s) reviewed by me Assessment/Plan Assessment/Plan Sepsis secondary to influenza type A Acute metabolic encephalopathy Influenza type A positive: Tamiflu 30 mg p.o. b.i.d. 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 Sonny Ortega appreciated: Aspirin 325 mg p.o. daily, Lipitor 40 mg p.o. daily, CT head and MRI brain shows old right occipital infarct Hypertensive emergency with blood pressure 208/107 metoprolol, cardiology consult for Dr. Peguero appreciated, echocardiogram 35 % ejection fraction, advised outpatient ischemic cardiac workup, placed on nifedipine metoprolol Acute on chronic decompensated systolic heart failure ejection fraction 40 percent Uncontrolled diabetes blood sugar 184 Hypercholesterolemia Lipitor CKD 3 : Nephrology consult by Dr. Martins appreciated, kidney ultrasound negative Hypercholesterolemia: Lipitor Carotid ultrasound negative Mild elevation of troponin 48 Elevated D-dimer 2.27 DVT ruled out Will order V/Q scan to rule out PE Patient with multiple comorbidities Time spent 65 minutes Condition guarded Advanced care planning time 20 minutes Patient is full code Discussed the diagnosis management poor prognosis with the patient's daughter Rylie Scott [phone] at bedside and with the other daughter Tigist [phone] on the phone Patient does not need a sitter Plan discussed with: Patient My Orders Orders - ERNESTO DELCID MD Procedure Category Date Status Time Pt Request For Service PT 08/28/24 Logged 08:19 Date of Service: Aug 28, 2024 Billing Provider: ERNESTO DELCID MD Common Visit Codes: [id number] INP/OBS CARE(HIGH) ERNESTO DELCID MD Aug 28, 2024 08:28
[2024-08-28 14:11] LABS: Chloride 105 mmol/L (98-107); Potassium 4.3 mmol/L (3.5-5.1); Sodium 136 mmol/L (136-145)
[2024-08-28 14:12] LABS: Anion Gap 10 (5-15); Carbon Dioxide 21 mmol/L (20-31)
[2024-08-28 14:13] LABS: Calcium 9.1 mg/dL (8.7-10.4)
[2024-08-28 14:17] LABS: BUN/Creatinine Ratio 23.4 (10.0-20.0)
[2024-08-28 14:19] LABS: Glucose 207 mg/dL (74-106)
[2024-08-28 14:21] LABS: Blood Urea Nitrogen 82 mg/dL (9-23)
--- NOTE | 2024-08-28 16:24 | DVHPN2 ---
Progress Note Date Seen: Aug 28, 2024 Medical Necessity Reason Pt with a Central, PICC or Fol: No Subjective Patient reports: No new complaints Objective vital signs Vital Sign Date Time Temp Pulse Resp B/P (MAP) Pulse Ox O2 Delivery O2 Flow Rate FiO2 08/28/24 09:14 97.9 56 16 140/62 (88) 95 97.9 08/28/24 08:15 Room Air* 0 21 Total Intake and Output 08/27/24 08/27/24 08/28/24 15:00 23:00 07:00 Intake Total 250 ml 870 ml 50 ml Output Total 250 ml Balance 250 ml 620 ml 50 ml medications Current Medications Medications Dose Ordered Sig/Drew Route Start Time Stop Time Status Last Admin Dose Admin Acetaminophen 325 mg Q6HP PRN PO 08/24/24 08:00 08/26/24 06:24 325 MG Diagnostic Test (Pha) 1 strip Q6HR 08/24/24 12:00 08/28/24 11:59 1 STRIP Insulin Human Regular Q6HR SC 08/24/24 12:00 08/28/24 11:54 2 UNITS Nitroglycerin 0.4 mg Q5MINP PRN SL 08/24/24 09:00 Hydralazine HCl 10 mg Q6HR PRN IV 08/24/24 14:30 08/25/24 04:14 10 MG Aspirin 325 mg DAILY PO 08/26/24 10:00 08/28/24 09:04 325 MG Atorvastatin Calcium 40 mg HS PO 08/25/24 22:00 08/27/24 22:09 40 MG Enoxaparin Sodium 30 mg DAILY SC 08/26/24 10:00 08/27/24 10:29 30 MG Ceftriaxone Sodium 50 ml @ 100 mls/hr DAILY@09 IV 08/26/24 09:00 08/28/24 09:03 100 MLS/HR Oseltamivir Phosphate 30 mg DAILY@2200 PO 08/25/24 22:00 08/30/24 21:59 08/27/24 22:09 30 MG Azithromycin 250 ml @ 125 mls/hr DAILY IV 08/26/24 10:00 08/28/24 11:48 125 MLS/HR Gabapentin 300 mg BID PO 08/26/24 10:00 08/28/24 09:02 300 MG Acetaminophen/ Hydrocodone Bitart 1 tab Q6HP PRN PO 08/26/24 08:30 08/28/24 09:03 1 TAB Guaifenesin/ Dextromethorphan 10 ml TID PO 08/26/24 14:00 08/28/24 14:22 10 ML Calcium Acetate 667 mg TIDWMEALS PO 08/26/24 12:00 08/28/24 11:47 667 MG Furosemide 20 mg DAILY PO 08/27/24 10:00 08/28/24 09:04 20 MG Metoprolol Tartrate 25 mg Q12HR PO 08/26/24 22:00 08/27/24 22:09 25 MG Nifedipine 90 mg DAILY PO 08/27/24 10:00 08/28/24 09:02 90 MG Examination Gen: In no acute distress Pulm: Bilateral air entry Ext: no edema laboratory and microbiology Laboratory Tests 08/28/24 13:40 08/24/24 04:13 Test 08/28/24 13:40 Range/Units Serum Glucose 207 H 74-106 mg/dL Microbiology Date/Time Source Procedure Growth Status 08/25/24 13:30 Blood Blood Culture - Preliminary NO GROWTH AFTER 72 HOURS OF INCUBATION. 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 GFR 13. Congestive heart failure ejection fraction 35% Influenza A- on tamiflu Diabetes mellitus type 2 Status post hypoglycemia Hypertension- well controlled Hyperlipidemia Hyperphosphatemia REC Serial chemistry panels Strict I&Os IVF x 1 L Loop diuretic as needed to achieve desired ECF volume Will continue to follow case discussed with Dr. Ho Plan discussed with: Other My Orders My Orders Orders - RBIANA BELTRE Procedure Category Date Status Time Basic Metabolic Panel LAB 08/29/24 Verified 04:00 BRIANA BELTRE Aug 28, 2024 16:24
[2024-08-28] MEDS: SOD CHL 0.45% 1,000 ML IV ONE (17:55)
[2024-08-29] VITALS (7 sets, daily range): BP systolic 129–157; BP diastolic 57–78; PULSE 48–54; RESP 17–20; TEMP 97.4–98.3; O2SAT 65–96
--- NOTE | 2024-08-29 09:12 | DVHPN2 ---
Reviewed: Care Plan, H&P, Labs, Medications, Previous Orders, Radiology Changes from previous H/P or p: No Changes Eyes: No Pain, No Vision change, No Conjunctivae inflammation, No Eyelid inflammation, No Other, No Redness ENT: No Ear pain, No Ear discharge, No Nose pain, No Nose discharge, No Nose congestion, No Mouth pain, No Mouth swelling, No Throat pain, No Throat swelling, No Other Cardiovascular: No Chest Pain, No Palpitations, No Orthopnea, No Paroxysmal Noc. Dyspnea, No Edema, No Lt Headedness, No Other Respiratory: No Cough, No Dry, No Shortness of breath, No SOB with excertion, No Wheezing, No Hemoptysis, No Pleuritic Pain, No Sputum, No Other Gastrointestinal: No Nausea, No Vomiting, No Abdominal Pain, No Diarrhea, No Constipation, No Melena, No Hematochezia, No Other Genitourinary: No Dysuria, No Frequency, No Incontinence, No Hematuria, No Retention, No Other Musculoskeletal: No other, No neck pain, No shoulder pain, No arm pain, No back pain, No hand pain, No leg pain, No foot pain Skin: No Rash, No Lesions, No Jaundice, No Bruising, No Other Objective Vitals Vital Signs Date Time Temp Pulse Resp B/P (MAP) Pulse Ox O2 Delivery O2 Flow Rate FiO2 08/29/24 05:00 50 20 145/60 (88) 96 08/29/24 01:00 97.8 97.8 08/28/24 20:00 Room Air* 0 21 Intake/Output Intake and Output 08/29/24 07:00 Intake Total 590 ml Output Total 600 ml Balance -10 ml Intake Oral 540 ml IV Total 50 ml Output Urine Total 600 ml # Voids 2 # Bowel Movements 1 Medications Current Medications Medications Dose Ordered Sig/Drew Route Start Time Stop Time Status Last Admin Dose Admin Acetaminophen 325 mg Q6HP PRN PO 08/24/24 08:00 08/26/24 06:24 325 MG Diagnostic Test (Pha) 1 strip Q6HR 08/24/24 12:00 08/29/24 05:29 1 STRIP Insulin Human Regular Q6HR SC 08/24/24 12:00 08/29/24 00:00 2 UNITS Nitroglycerin 0.4 mg Q5MINP PRN SL 08/24/24 09:00 Hydralazine HCl 10 mg Q6HR PRN IV 08/24/24 14:30 08/25/24 04:14 10 MG Aspirin 325 mg DAILY PO 08/26/24 10:00 08/28/24 09:04 325 MG Atorvastatin Calcium 40 mg HS PO 08/25/24 22:00 08/28/24 22:12 40 MG Enoxaparin Sodium 30 mg DAILY SC 08/26/24 10:00 08/27/24 10:29 30 MG Ceftriaxone Sodium 50 ml @ 100 mls/hr DAILY@09 IV 08/26/24 09:00 08/29/24 08:30 100 MLS/HR Oseltamivir Phosphate 30 mg DAILY@2200 PO 08/25/24 22:00 08/30/24 21:59 08/27/24 22:09 30 MG Azithromycin 250 ml @ 125 mls/hr DAILY IV 08/26/24 10:00 08/28/24 11:48 125 MLS/HR Acetaminophen/ Hydrocodone Bitart 1 tab Q6HP PRN PO 08/26/24 08:30 08/29/24 06:01 1 TAB Guaifenesin/ Dextromethorphan 10 ml TID PO 08/26/24 14:00 08/28/24 22:13 10 ML Calcium Acetate 667 mg TIDWMEALS PO 08/26/24 12:00 08/29/24 08:25 667 MG Furosemide 20 mg DAILY PO 08/27/24 10:00 08/28/24 09:04 20 MG Metoprolol Tartrate 25 mg Q12HR PO 08/26/24 22:00 08/28/24 22:13 25 MG Nifedipine 90 mg DAILY PO 08/27/24 10:00 08/28/24 09:02 90 MG Gabapentin 300 mg DAILY PO 08/29/24 10:00 Laboratory Results Laboratory Tests 08/24/24 04:13 08/28/24 13:40 Chemistry Test 08/28/24 13:40 Calcium Level 9.1 mg/dL (8.7-10.4) Urinalysis Test 08/24/24 10:48 Urine Color Light-yellow (Yellow) Urine Clarity Clear (Clear) Urine pH 6.5 (5.0-9.0) Urine Specific [place] 1.016 (1.001-1.035) Urine Protein 3+ (Negative) H Urine Ketones Trace (Negative) Urine Blood Trace /uL (Negative) H Urine Nitrite Negative (Negative) Urine Bilirubin Negative (Negative) Urine Urobilinogen Normal mg/dL (Negative) Urine Leukocyte Esterase Negative /uL (Negative) Urine RBC 6 /hpf (0 - 4) Urine WBC 1 /hpf (0 - 5) Urine Squamous Epithelial Cells None seen /hpf (<5) Urine Bacteria None seen /hpf (None Seen) Urine Creatinine 80.43 mg/dL (30.0-125.0) Urine Sodium 94 mmol/L (40-220) Urine Glucose 2+ mg/dL (Normal) H Microbiology Microbiology Date/Time Source Procedure Growth Status 08/25/24 13:30 Blood Blood Culture - Preliminary NO GROWTH AFTER 72 HOURS OF INCUBATION. Resulted Labs and/or images reviewed: Labs reviewed by me, Image(s) reviewed by me Assessment/Plan Assessment/Plan Sepsis secondary to influenza type A Acute metabolic encephalopathy Influenza type A positive: Tamiflu 30 mg p.o. b.i.d. 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 Sonny Ortega appreciated: Aspirin 325 mg p.o. daily, Lipitor 40 mg p.o. daily, CT head and MRI brain shows old right occipital infarct Hypertensive emergency with blood pressure 208/107 metoprolol, cardiology consult for Dr. Peguero appreciated, echocardiogram 35 % ejection fraction, advised outpatient ischemic cardiac workup, placed on nifedipine metoprolol Acute on chronic decompensated systolic heart failure ejection fraction 40 % Uncontrolled diabetes blood sugar 184 Hypercholesterolemia Lipitor CKD 3 : Nephrology consult by Dr. Martins appreciated, kidney ultrasound negative Hypercholesterolemia: Lipitor Carotid ultrasound negative Mild elevation of troponin 48 Elevated D-dimer 2.27 DVT ruled out Patient with multiple comorbidities Time spent 55 minutes Condition guarded Advanced care planning time 20 minutes Patient is full code Discussed the diagnosis management poor prognosis with the patient's daughter Rylie Scott [phone] at bedside and with the other daughter Tigist [phone] on the phone Patient does not need a sitter Plan discussed with: Patient My Orders Orders - ERNESTO DELCID MD Procedure Category Date Status Time D/C Juarez MACKENZIE 08/28/24 In Process 11:31 Gabapentin Capsule PHA 08/29/24 In Process (Neurontin Capsule) 10:00 * Experimental [employer]ic CONS 08/29/24 Verified Consult 09:09 Date of Service: Aug 29, 2024 Billing Provider: ERNESTO DELCID MD Common Visit Codes: [id number] INP/OBS CARE(HIGH) ERNESTO DELCID MD Aug 29, 2024 09:12
--- NOTE | 2024-08-29 09:19 | DVHDS2 ---
Discharge Summary Date of Admission Aug 24, 2024 at 08:48 Date of Discharge: Aug 29, 2024 Admitting Diagnosis Shortness of breaths and altered mental status Wounds: None Labs/Diagnostic Data: Laboratory Results Test 08/29/24 05:26 08/28/24 13:40 08/25/24 17:39 08/25/24 15:00 POC Glucose 112 mg/dl (70-106) Sodium Level 136 mmol/L (136-145) Potassium Level 4.3 mmol/L (3.5-5.1) Chloride Level 105 mmol/L (98-107) Carbon Dioxide Level 21 mmol/L (20-31) Anion Gap 10 (5-15) Blood Urea Nitrogen 82 mg/dL (9-23) Creatinine 3.50 mg/dL (0.550-1.02) Glomerular Filtration Rate Calc 13 mL/min (>90) BUN/Creatinine Ratio 23.4 (10.0-20.0) Serum Glucose 207 mg/dL (74-106) Calcium Level 9.1 mg/dL (8.7-10.4) Phosphorus Level 6.2 mg/dL (2.4-5.1) Magnesium Level 1.9 mg/dL (1.6-2.6) Vitamin D 25-Hydroxy 50.2 ng/mL (30.0-100) D-Dimer, Quantitative 2.27 mg/L FEU (0.0-0.49) B-Type Natriuretic Peptide 114.75 pg/mL (0-100) Parathyroid Hormone (Intact) 62.9 pg/mL (18.4-80.1) Test 08/25/24 11:20 08/24/24 11:05 08/24/24 10:48 08/24/24 07:44 Influenza Type A Antigen Positive (Negative) Influenza Type B Antigen Negative (Negative) SARS-CoV-2 Antigen (Rapid) Negative (NEGATIVE) Erythrocyte Sedimentation Rate 33 mm/hr (0-20) Ammonia < 10 umol/L (11-32) Creatine Kinase MB 2.7 ng/mL (0.0-5.3) Vitamin B12 Level 330 pg/mL (211-911) Free Thyroxine (T4) Calculated 1.05 ng/dL (0.89-1.76) Free Triiodothyronine (T3) pg/mL 2.18 pg/mL (2.3-4.2) Rapid Plasma Reagin Non reactive (Non Reactive) Urine Color Light-yellow (Yellow) Urine Clarity Clear (Clear) Urine pH 6.5 (5.0-9.0) Urine Specific Spicer 1.016 (1.001-1.035) Urine Protein 3+ (Negative) Urine Ketones Trace (Negative) Urine Blood Trace /uL (Negative) Urine Nitrite Negative (Negative) Urine Bilirubin Negative (Negative) Urine Urobilinogen Normal mg/dL (Negative) Urine Leukocyte Esterase Negative /uL (Negative) Urine RBC 6 /hpf (0 - 4) Urine WBC 1 /hpf (0 - 5) Urine Squamous Epithelial Cells None seen /hpf (<5) Urine Bacteria None seen /hpf (None Seen) Urine Creatinine 80.43 mg/dL (30.0-125.0) Urine Sodium 94 mmol/L (40-220) Urine Glucose 2+ mg/dL (Normal) Troponin I High Sensitivity 48 ng/L (</=34) Triglycerides Level 177 mg/dL (< 150) Cholesterol Level 184 mg/dL (< 200) LDL Cholesterol 105 mg/dL (< 100) HDL Cholesterol 45 mg/dL (40-59) Thyroid Stimulating Hormone (TSH) 0.24 uIU/mL (0.55-4.78) Test 08/24/24 04:13 White Blood Count 9.7 10^3/uL (4.4-10.8) Red Blood Count 5.25 10^6/uL (4.0-5.20) Hemoglobin 12.3 g/dL (12.2-16.2) Hematocrit 39.4 % (36.0-46.0) Mean Corpuscular Volume 75.1 fL (80.0-100.0) Mean Corpuscular Hemoglobin 23.5 pg (28.0-32.0) Mean Corpuscular Hemoglobin Concent 31.3 g/dL (32.0-36.0) Red Cell Distribution Width 14.9 % (11.8-14.3) Platelet Count 236 10^3/uL (140-450) Mean Platelet Volume 7.9 fL (6.9-10.8) Neutrophils (%) (Auto) 84.0 % (37.0-80.0) Lymphocytes (%) (Auto) 6.0 % (10.0-50.0) Monocytes (%) (Auto) 9.1 % (0.0-12.0) Eosinophils (%) (Auto) 0.1 % (0.0-7.0) Basophils (%) (Auto) 0.8 % (0.0-2.0) Neutrophils # (Auto) 8.1 10 ^3/uL (1.6-8.6) Lymphocytes # (Auto) 0.6 10 ^3/uL (0.4-5.4) Monocytes # (Auto) 0.9 10 ^3/uL (0-1.3) Eosinophils # (Auto) 0 10 ^3/uL (0-0.8) Basophils # (Auto) 0.1 10 ^3/uL (0-0.2) Nucleated Red Blood Cells 0.2 % Platelet Estimate Adequate Hypochromasia (manual) Moderate Microcytosis Slight Schistocytes Few Lactic Acid Level 1.3 mmol/L (0.4-2.0) Total Bilirubin 0.3 mg/dL (0.2-1.0) Aspartate Amino Transferase (AST) 22 U/L (13-40) Alanine Aminotransferase (ALT) 15 U/L (7-40) Alkaline Phosphatase 99 U/L (46-116) Total Protein 7.6 g/dL (5.7-8.2) Albumin 4.3 g/dL (3.2-4.8) Lipase 27 U/L (12-53) Other Laboratory Tests 08/28/24 13:40 08/24/24 04:13 Brief Hx & Hospital Course: 73-year-old female with a history of diabetes hypertension hypercholesterolemia congestive heart failure burden for shortness of breaths altered mental status and confusion found to have influenza type a treated with the Tamiflu also found to have possible community-acquired pneumonia treated with IV Rocephin and azithromycin. Patient will resume 3rd to have possible stroke CT head and MRI brain were all negative for any acute changes but showed old right occipital infarct tele neurology consult was appreciated placed on aspirin and Lipitor CT head and MRI brain showed old right occipital infarct Patient has acute on chronic systolic congestive heart failure ejection fraction 40 percent also had chronic kidney disease stage 3 seen by Nephrology and improving . D-dimer elevated 2.27 DVT ruled out carotid ultrasound negative Patient being discharged [facility] to receive Rocephin 1 g IV daily for two weeks and azithromycin 500 mg IV daily for two weeks for pneumonia Discussed with the patient's daughter Lien and the patient and they are agreeable for the [facility] facility placement Consults/Reason for consult Nephrology Operations or Procedures None Condition at Discharge: Fair Final Diagnosis/Problems List Sepsis secondary to influenza type A Acute metabolic encephalopathy Influenza type A positive: Tamiflu 30 mg p.o. b.i.d. 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 Sonny Ortega appreciated: Aspirin 325 mg p.o. daily, Lipitor 40 mg p.o. daily, CT head and MRI brain shows old right occipital infarct Hypertensive emergency with blood pressure 208/107 metoprolol, cardiology consult for Dr. Peguero appreciated, echocardiogram 35 % ejection fraction, advised outpatient ischemic cardiac workup, placed on nifedipine metoprolol Acute on chronic decompensated systolic heart failure ejection fraction 40 % Uncontrolled diabetes blood sugar 184 Hypercholesterolemia Lipitor CKD 3 : Nephrology consult by Dr. Martins appreciated, kidney ultrasound negative Hypercholesterolemia: Lipitor Carotid ultrasound negative Mild elevation of troponin 48 Elevated D-dimer 2.27 DVT ruled out [facility] Discharge Instruct/Medications Diet: Cardiac 2g Na,low cholest Activity: Light activity Follow Up/Referral: Follow up with [facility] Medications: Rocephin 1 g IV daily for two weeks Azithromycin 500 mg IV daily for two weeks see list for other meds 39 (Time taken for discharge summary 39 minutes) Discharge Statement: "Patient was advised to return to the ER or call 911 if any headaches, dizziness, shortness of breath, chest pain, abdominal pain, bleeding, fevers, or worsening of medical condition. Patient was counseled about treatment plan, medications, possible side effects, patientverbalized understanding. All questions were answered to the best of my ability. This discharge took greater then 30 minutes in planning, reviewing documentation, counseling the patient, and discussing with other team members." ASSESSMENT ASSESSMENT Hospital Course Improved Assessment Sepsis secondary to influenza type A Acute metabolic encephalopathy Influenza type A positive: Tamiflu 30 mg p.o. b.i.d. 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 Sonny Ortega appreciated: Aspirin 325 mg p.o. daily, Lipitor 40 mg p.o. daily, CT head and MRI brain shows old right occipital infarct Hypertensive emergency with blood pressure 208/107 metoprolol, cardiology consult for Dr. ePguero appreciated, echocardiogram 35 % ejection fraction, advised outpatient ischemic cardiac workup, placed on nifedipine metoprolol Acute on chronic decompensated systolic heart failure ejection fraction 40 % Uncontrolled diabetes blood sugar 184 Hypercholesterolemia Lipitor CKD 3 : Nephrology consult by Dr. Martins appreciated, kidney ultrasound negative Hypercholesterolemia: Lipitor Carotid ultrasound negative Mild elevation of troponin 48 Elevated D-dimer 2.27 DVT ruled out Date of Service: Aug 29, 2024 Billing Provider: ERNESTO DELCID MD Common Visit Codes: 65825-XGO/OBS DISCH DAY >30min ERNESTO DELCID MD Aug 29, 2024 09:19
[2024-08-29] MEDS: GABAPENTIN 300 MG CAP PO SCH (10:23)
[2024-08-29 11:25] LABS: INR 0.99 (0.9-1.15); Partial Thromboplastin Time 27.6 SEC (24.5-34.5); Prothrombin Time 10.5 sec (9.3-11.8)
[2024-08-29 11:38] LABS: Chloride 103 mmol/L (98-107)
[2024-08-29 11:39] LABS: Anion Gap 10 (5-15); Calcium 9.1 mg/dL (8.7-10.4); Carbon Dioxide 21 mmol/L (20-31); Sodium 134 mmol/L (136-145)
[2024-08-29 11:44] LABS: BUN/Creatinine Ratio 25.1 (10.0-20.0)
[2024-08-29 11:49] LABS: Glucose 232 mg/dL (74-106)
[2024-08-29 11:51] LABS: Blood Urea Nitrogen 84 mg/dL (9-23)
--- NOTE | 2024-08-29 13:30 | DVHPN2 ---
Progress Note Date Seen: Aug 29, 2024 Medical Necessity Reason Pt with a Central, PICC or Fol: No Subjective Patient reports: No new complaints Objective vital signs Vital Sign Date Time Temp Pulse Resp B/P (MAP) Pulse Ox O2 Delivery O2 Flow Rate FiO2 08/29/24 12:43 98.3 54 18 157/65 (95) 91 98.3 08/29/24 08:00 Room Air* 0 21 Total Intake and Output 08/28/24 08/28/24 08/29/24 15:00 23:00 07:00 Intake Total 50 ml 540 ml Output Total 600 ml Balance 50 ml -60 ml medications Current Medications Medications Dose Ordered Sig/Drew Route Start Time Stop Time Status Last Admin Dose Admin Acetaminophen 325 mg Q6HP PRN PO 08/24/24 08:00 08/26/24 06:24 325 MG Diagnostic Test (Pha) 1 strip Q6HR 08/24/24 12:00 08/29/24 12:04 1 STRIP Insulin Human Regular Q6HR SC 08/24/24 12:00 08/29/24 12:17 4 UNITS Nitroglycerin 0.4 mg Q5MINP PRN SL 08/24/24 09:00 Hydralazine HCl 10 mg Q6HR PRN IV 08/24/24 14:30 08/25/24 04:14 10 MG Aspirin 325 mg DAILY PO 08/26/24 10:00 08/29/24 10:08 325 MG Atorvastatin Calcium 40 mg HS PO 08/25/24 22:00 08/28/24 22:12 40 MG Enoxaparin Sodium 30 mg DAILY SC 08/26/24 10:00 08/29/24 10:11 30 MG Ceftriaxone Sodium 50 ml @ 100 mls/hr DAILY@09 IV 08/26/24 09:00 08/29/24 08:30 100 MLS/HR Oseltamivir Phosphate 30 mg DAILY@2200 PO 08/25/24 22:00 08/30/24 21:59 08/27/24 22:09 30 MG Azithromycin 250 ml @ 125 mls/hr DAILY IV 08/26/24 10:00 08/29/24 10:11 125 MLS/HR Acetaminophen/ Hydrocodone Bitart 1 tab Q6HP PRN PO 08/26/24 08:30 08/29/24 12:12 1 TAB Guaifenesin/ Dextromethorphan 10 ml TID PO 08/26/24 14:00 08/28/24 22:13 10 ML Calcium Acetate 667 mg TIDWMEALS PO 08/26/24 12:00 08/29/24 12:04 667 MG Furosemide 20 mg DAILY PO 08/27/24 10:00 08/29/24 10:09 20 MG Metoprolol Tartrate 25 mg Q12HR PO 08/26/24 22:00 08/28/24 22:13 25 MG Nifedipine 90 mg DAILY PO 08/27/24 10:00 08/28/24 09:02 90 MG Gabapentin 300 mg DAILY PO 08/29/24 10:00 08/29/24 10:23 300 MG Examination Gen: In no acute distress Pulm: Bilateral air entry Ext: no edema laboratory and microbiology Laboratory Tests 08/29/24 10:30 08/24/24 04:13 Test 08/29/24 10:30 Range/Units Serum Glucose 232 H 74-106 mg/dL Microbiology Date/Time Source Procedure Growth Status 08/25/24 13:30 Blood Blood Culture - Preliminary NO GROWTH AFTER 72 HOURS OF INCUBATION. Resulted Labs and/or images reviewed: Labs reviewed by me Problem List/Assessment/Plan Problem List/Assessment/Plan IMP Acute kidney injury superimposed Chronic Kidney stage IIIB Disease secondary to hemodynamic mediated, ATN FeNa > 2%- ongoing BUN 84, slightly downtrend of creat 3.34. GFR 14. Congestive heart failure ejection fraction 35% Influenza A- on tamiflu Diabetes mellitus type 2 Status post hypoglycemia Hypertension- well controlled Hyperlipidemia Hyperphosphatemia REC Serial chemistry panels Strict I&Os IVF x 500ml Loop diuretic as needed to achieve desired ECF volume Once discharged pt to follow up as outpatient Case discussed with Dr. Ho Plan discussed with: Patient My Orders My Orders Orders - BRIANA BELTRE Procedure Category Date Status Time Urine Sodium LAB 08/28/24 Logged 16:37 Urine Creatinine LAB 08/28/24 Logged 16:37 Sod Chl 0.45% (Sodium PHA 08/29/24 In Process Chloride 0.45% Via 12:30 BRIANA BELTRE Aug 29, 2024 13:30
[2024-08-29] MEDS: SOD CHL 0.45% 500 ML IV ONE (14:25)
== END 2024-08-29 18:44 | DRG 871 ==
LOC: EDBD 03:20 → ER 03:20 → TELE 08:48 → TELE-EAST 15:19 → TELE-CENTR 08-25 16:03
PROVIDERS: ADMIT Nurse Practitioner Family; ATTEND Family Medicine
PROC: 05HB33Z Insertion of Infusion Device into Right Basilic Vein, Percutaneous Approach (ICD-10-PCS; principal; 2024-08-29)
PROC: B54MZZA Ultrasonography of Right Upper Extremity Veins, Guidance (ICD-10-PCS; 2024-08-29)
DX: A41.89 Other specified sepsis (principal); G93.41 Metabolic encephalopathy; I50.23 Acute on chronic systolic (congestive) heart failure; I21.A1 Myocardial infarction type 2; N17.0 Acute kidney failure with tubular necrosis; J10.00 Influenza due to other identified influenza virus with unspecified type of pneumonia; J18.9 Pneumonia, unspecified organism; I13.0 Hypertensive heart and chronic kidney disease with heart failure and stage 1 through stage 4 chronic kidney disease, or unspecified chronic kidney disease; I16.1 Hypertensive emergency; Z20.822 Contact with and (suspected) exposure to COVID-19; E83.39 Other disorders of phosphorus metabolism; E11.22 Type 2 diabetes mellitus with diabetic chronic kidney disease; N18.30 Chronic kidney disease, stage 3 unspecified; E11.42 Type 2 diabetes mellitus with diabetic polyneuropathy; E78.00 Pure hypercholesterolemia, unspecified; Z82.49 Family history of ischemic heart disease and other diseases of the circulatory system; Z83.3 Family history of diabetes mellitus; Z80.41 Family history of malignant neoplasm of ovary; Z80.3 Family history of malignant neoplasm of breast; Z79.82 Long term (current) use of aspirin; Z79.899 Other long term (current) drug therapy; Z86.73 Personal history of transient ischemic attack (TIA), and cerebral infarction without residual deficits
CPT/HCPCS: 36415; 70450; 70551; 71045; 76775; 80048; 80053; 80061; 81001; 82140; 82306; 82553; 82570; 82607; 82962; 83605; 83690; 83735; 83880; 83970; 84100; 84300; 84439; 84443; 84481; 84484; 85025; 85379; 85610; 85652; 85730; 86592; 87040; 87426; 87804; 92610; 93005; 93306; 93886; 93970; 96365; 96375; 97110; 97116; 97163; 97530; 99291; G0378; G9035; J0692; J1815; J1885

== ENCOUNTER 2025-08-09 15:38 | Inpatient (IN) | payer MEDICARE, MEDICAID ==
[~2025-08-09] VITALS: Ht 152.4 cm; Wt 74.8 kg
[~2025-08-09 15:38] MED LIST changes: +CARV12.544 PO; +CLOP75TA70 PO; +DICL1GEL73 TD; +DOCU-265 PO; +EZET-10 PO; +FERR324T4 PO; +GLIP10TA9 PO; +NIFE90TA75 PO; +POLY17PO18 PO; +[UNRECOGNIZED DRUG - CODE] TOP
--- NOTE | 2025-08-09 16:26 | ECG ---
[facility] Test Date: 2025-08-09 Test Time: 16:01:48 Pat Name: NELY GONZALEZ Department: Room: 0281 Gender: F Board Runner: BEATRIZ : 1950 Requested By: MAGUE BARBER Order Number: [id number] Reading MD: Pola Webb Measurements Intervals [place] Rate: 50 P: 47 MA: 153 QRS: -58 QRSD: 156 T: -86 QT: 652 QTc: 595 Interpretive Statements Sinus rhythm Right bundle branch block LVH with IVCD and secondary repol abnrm Prolonged QT interval Electronically Signed On 08-11-2025 20:05:51 PST by Pola Webb Please click the below link to view image of tracing.
[2025-08-09] MEDS ORDERED: SODIUM CHLORIDE 0.9% 1,000 ML IV ONE (17:00)
[2025-08-09] MEDS: SODIUM CHLORIDE 0.9% 1,000 ML IV ONE (17:30)
[2025-08-09 17:38] LABS: Hematocrit 25.3 % (36.0-46.0); Hemoglobin 7.8 g/dL (12.2-16.2); Mean Corpuscular Hemoglobin 24.5 pg (28.0-32.0); Mean Corpuscular Volume 79.8 fL (80.0-100.0); Nucleated Red Blood Cells % 3.0 %
--- NOTE | 2025-08-09 17:41 | ED.PDOC ---
SOB-HPI HPI Comments 74-year-old female with a presented to the ED via EMS for complaint shortness of breath. EMS states patient has being having shortness for breath for the past two days with associated productive cough and yellow phlegm. EMS arrived on scene and with the patient hypotensive. Patient stated that she has been having associated weakness that has been getting progressively worse and called EMS. Patient with the ED noted to have blood pressure 96/61 with noted O2 saturation of 94% on room air. Patient was placed on supplemental oxygen. Patient otherwise is all oriented x4 and able to answer all questions. Chief Complaint: Shortness of Breath Time Seen by MD: 17:46 Reviewed notes: Medications, Allergies Information Source: Patient Mode of Arrival: Ambulatory Brought in by: ems Severity: Moderate Timing: Days Past Medical History PAST MEDICAL HISTORY: DM, High Lipids, HTN Surgical History: Denies all surgeries MILITARY ADMINISTRATIVE TECHNICIAN History: Denies all MILITARY ADMINISTRATIVE TECHNICIAN Hx Family History Family History: Reviewed,noncontributory to illness Social History Smoker: Non-Smoker Alcohol: Denies ETOH Use Drugs: Denies Drug Use Lives In: Home Constitutional: reports: malaise, weakness; denies: chills, diaphoresis, fatigue, fever, sweats, others EENTM: denies: blurred vision, double vision, ear bleeding, ear discharge, ear drainage, ear pain, ear ringing, eye pain, eye redness, hearing loss, mouth pain, mouth swelling, nasal discharge, nose bleeding, nose congestion, nose pain, photophobia, tearing, throat pain, throat swelling, voice changes, others Respiratory: reports: cough, shortness of breath; denies: hemoptysis, orthopnea, SOB at rest, SOB with excertion, stridor, wheezing, others Cardiovascular: denies: chest pain, dizzy spells, diaphoresis, Dyspnea on exertion, edema, irregular heart beat, left arm pain, lightheadedness, palpitations, PND, syncope, others Gastrointestinal: denies: abdomen distended, abdominal pain, blood streaked bowels, constipated, diarrhea, dysphagia, difficulty swallowing, hematemesis, melena, nausea, poor appetite, poor fluid intake, rectal bleeding, rectal pain, vomiting, others Genitourinary: denies: abnormal vagina bleeding, burning, dyspareunia, dysuria, flank pain, frequency, hematuria, incontinence, pain, , vagina discharge, urgency, others Neurological: denies: dizziness, fainting, headache, left sided numbness, left sided weakness, numbness, paresthesia, pre-existing deficit, right sided numbness, right sided weakness, seizure, speech problems, tingling, tremors, weakness, others Musculoskeletal: denies: back pain, gout, joint pain, joint swelling, muscle pain, muscle stiffness, neck pain, others Integumetry: denies: bruises, change in color, change in hair/nails, dryness, laceration, lesions, lumps, rash, wounds, others Allergic/Immunocompromised: denies: Difficulty Healing, Frequent Infections, Hives, Itching, others Hematologic/Lymphatic: denies: anemia, blood clots, easy bleeding, easy bruising, swollen glands, others Endocrine: denies: excessive hunger, excessive sweating, excessive thirst, excessive urination, flushing, intolerance to cold, intolerance to heat, unexplained weight gain, unexplained weight loss, others Psychiatric: denies: anxiety, bipolar disorder, depression, hopeless, panic disorder, schizophrenia, sleepless, suicidal, others All Other Systems: Reviewed and Negative Physical Exam General Appearance: Other (Tired appearing, slow to respond to questions) HEENT: Normal ENT Inspection, Pharynx Normal, TMs Normal Neck: Full Range of Motion, Non-Tender, Normal, Normal Inspection Respiratory: Chest Non-Tender, Lungs Clear, No Accessory Muscle Use, No Respiratory Distress, Normal Breath Sounds Cardiovascular: No Edema, No JVD, No Murmur, No Gallop, Normal Peripheral Pulses, Regular Rate/Rhythm Breast Exam: Deferred Gastrointestinal: No Organomegaly, Non Tender, No Pulsatile Mass, Normal Bowel Sounds, Soft Genitalia: Deferred Pelvic: Deferred Rectal: Deferred Extremities: No calf tenderness, Normal capillary refill, Normal inspection, Normal range of motion, Non-tender, No pedal edema Musculoskeletal : Apperance: Normal Neurologic: Alert, supervisor shop II-XII nml as Tested, No Motor Deficits, Normal Affect, Normal Mood, No Sensory Deficits Cerebellar Function: Normal Reflexes: Normal Skin: Dry, Normal Color, Warm Lymphatic: No Adenopathy EKG EKG : Comments Inferior and lateral T-wave inversions, right bundle-branch block, left posterior fascicular block. No STEMI. Was a procedure done? Was a procedure done?: No Differential Dx Differential Diagnosis: Bronchitis, CHF, COPD, Pneumonia, Respiratory Distress, Pharyngitis, URI Comments COVID, influenza a and B, sepsis,, ACS X-Ray, Labs, Meds, VS Vital Signs Date Time Temp Pulse Resp B/P (MAP) Pulse Ox O2 Delivery O2 Flow Rate FiO2 08/09/25 18:39 56 08/09/25 18:05 52 20 72/41 (51) 96 08/09/25 17:53 70/43 08/09/25 17:49 52 08/09/25 16:01 50 08/09/25 15:40 97.3 88 22 96/61 94 97.3 Lab Test 08/09/25 18:55 08/09/25 17:08 Range/Units Troponin I High Sensitivity Pending 7416 *H </=34 ng/L White Blood Count 8.6 4.4-10.8 10^3/uL Red Blood Count 3.17 L 4.0-5.20 10^6/uL Hemoglobin 7.8 L 12.2-16.2 g/dL Hematocrit 25.3 L 36.0-46.0 % Mean Corpuscular Volume 79.8 L 80.0-100.0 fL Mean Corpuscular Hemoglobin 24.5 L 28.0-32.0 pg Mean Corpuscular Hemoglobin Concent 30.7 L 32.0-36.0 g/dL Red Cell Distribution Width 15.6 H 11.8-14.3 % Platelet Count 186 140-450 10^3/uL Mean Platelet Volume 7.8 6.9-10.8 fL Neutrophils (%) (Auto) 84.9 H 37.0-80.0 % Lymphocytes (%) (Auto) 8.9 L 10.0-50.0 % Monocytes (%) (Auto) 5.7 0.0-12.0 % Eosinophils (%) (Auto) 0.2 0.0-7.0 % Basophils (%) (Auto) 0.3 0.0-2.0 % Neutrophils # (Auto) 7.3 1.6-8.6 10 ^3/uL Lymphocytes # (Auto) 0.8 0.4-5.4 10 ^3/uL Monocytes # (Auto) 0.5 0-1.3 10 ^3/uL Eosinophils # (Auto) 0 0-0.8 10 ^3/uL Basophils # (Auto) 0 0-0.2 10 ^3/uL Nucleated Red Blood Cells 3.0 % Sodium Level 143 136-145 mmol/L Potassium Level 5.0 3.5-5.1 mmol/L Chloride Level 110 H 98-107 mmol/L Carbon Dioxide Level 16 L 20-31 mmol/L Anion Gap 17 H 5-15 Blood Urea Nitrogen 64 H 9-23 mg/dL Creatinine 4.29 H 0.550-1.02 mg/dL Glomerular Filtration Rate Calc 10 >90 mL/min BUN/Creatinine Ratio 14.9 10.0-20.0 Serum Glucose 158 H 74-106 mg/dL Lactic Acid Level 5.5 *H 0.4-2.0 mmol/L Calcium Level 8.5 L 8.7-10.4 mg/dL Total Bilirubin 0.3 0.2-1.0 mg/dL Aspartate Amino Transferase (AST) 178 H 13-40 U/L Alanine Aminotransferase (ALT) 153 H 7-40 U/L Alkaline Phosphatase 139 H 46-116 U/L Total Protein 6.4 5.7-8.2 g/dL Albumin 3.7 3.2-4.8 g/dL Current Medications Medications (Trade) Dose Ordered Sig/Drew Route Start Time Stop Time Status Last Admin Sodium Chloride 1,000 ml @ 1,000 mls/hr Q1H ONCE IV 08/09/25 17:30 08/09/25 18:43 DC 08/09/25 17:30 Norepinephrine Bitartrate 250 ml @ 3.75 mls/hr Q24H IV 08/09/25 17:45 08/09/25 17:53 X-Ray, Labs, Meds, VS Comment 74-year-old female here today with a presentation consistent with a NSTEMI, hypotension. Patient was started on fluids and required pressors to maintain her blood pressure and was also started on a heparin drip and a cardiology consult was placed for an NSTEMI. Patient admitted for further management and care. Images Reviewed?: Images reviewed and evaluated by me Time of 1ST Reevaluation: 18:15 Reevaluation 1ST: Unchanged Consultation: Cardiology Patient Education/Counseling: Diagnosis, Treatment Family Education/Counseling: No Family Present SEPSIS Sepsis Screen Date sepsis recognized/suspect: Aug 09, 2025 Time Sepsis recognized/suspect: 1540 Recent Procedure: No On Antibiotic Therapy: No Respiratory Rate >20: Yes Heart Rate >90: No Temp<36 C (96.8 F) or >38.3 C: No SBP <90 or MAP <65 mmHG: Yes New Acute Mental Status Change: No (80s for EMS, at this time 96/61) Is the patient on CPAP, BIPAP,: No Physician Orders Blood Culture (08/09/25 15:53) Sepsis Initial Assessment ONCE (08/09/25 15:53) Sepsis Reassessment After Flui (08/09/25 15:53) Urinalysis (08/09/25 16:27) Norepinephrine 8 Mg/250ml Kit (Levophed) (08/09/25 17:45) Troponin-I Hs (08/09/25 18:52) Troponin-I Hs (08/09/25 20:52) Electrocardigram (08/09/25 17:52) Electrocardigram (08/09/25 18:52) Electrocardigram (08/09/25 20:52) * Cardiology Consult (08/09/25 18:15) Chest Xray 1 View (08/09/25 19:00) LIVER (08/09/25 19:00) *[facility] (08/09/25 19:00) Cefepime 1gm/50ml (Maxipime 1gm/50ml) (08/10/25 10:00) Cefepime 1gm/50ml (Maxipime 1gm/50ml) (08/09/25 19:00) Vancomycin 1gm/250ml Kit (08/09/25 19:00) B-Type Natriuretic Peptide (08/09/25 19:00) Basic Metabolic Panel (08/10/25 04:00) Clopidogrel Bisulfate (Plavix) (08/10/25 10:00) Atorvastatin (Lipitor) (08/09/25 22:00) Ferrous Sulfate Tablet (08/10/25 08:00) Iron Panel (08/09/25 19:00) Glucose Blood (Accu-Chek Comfort Curve T (08/09/25 22:00) Insulin R (Human) (Insulin R) (08/09/25 22:00) Dextrose 50% Syringe (08/09/25 19:00) Admit (08/09/25 19:00) Renal Standard(2gna,3gk,Lopho) (08/10/25 Breakfast) Ondansetron Hcl (Zofran) (08/09/25 19:00) Complete Blood Count (08/10/25 04:00) Comprehensive Metabolic Panel (08/10/25 04:00) Echo 2d Mode Cardiac Dop (08/09/25 19:00) Condition: Unstable (08/09/25 19:00) Acetaminophen Tablet (Tylenol Tablet) (08/09/25 19:00) Bedrest With Bathroom Privileg (08/09/25 19:00) Nitroglycerin Sublingual (Ntrostat Subli (08/09/25:00) Morphine Sulfate Injection (08/09/25:00) Stat Ekg For Chest Pain (08/09/25:00) Notify Md Of Changes From Base (08/09/25 19:00) Saturation Equipment Operator For 24 Hours (08/09/25 19:00) Emergency Dysrhythmia Protocol (08/09/25:00) Rhythm Strips Once Every Shift (08/09/25 19:00) Oxygen By Nasal Cannula (08/09/25:00) Albuterol Medneb (Ventolin Medneb) (08/09/25 19:00) Platelet Monitoring (08/09/25:08) Heparin Per Standardized Proce (08/09/25 19:08) Discontinue All Im Injections (08/09/25 19:08) PTPTT (08/09/25 19:08) Partial Thromboplastin Time (08/09/25 19:08) Heparin Sodium (Porcine) (08/09/25 19:15) Heparin Drip/D5w 100units/Ml (08/09/25 19:15) Vital Signs Date Time Temp Pulse Resp B/P (MAP) Pulse Ox O2 Delivery O2 Flow Rate FiO2 08/09/25 18:39 56 08/09/25 18:05 52 20 72/41 (51) 96 08/09/25 17:53 70/43 08/09/25 17:49 52 08/09/25 16:01 50 08/09/25 15:40 97.3 88 22 96/61 94 97.3 Laboratory Tests Test 08/09/25 17:08 Lactic Acid Level 5.5 mmol/L (0.4-2.0) *H White Blood Count 8.6 10^3/uL (4.4-10.8) Medications Medications Dose Ordered Sig/Drew Route Start Time Stop Time Status Last Admin Dose Admin Norepinephrine Bitartrate 250 ml @ 3.75 mls/hr Q24H IV 08/09/25 17:45 08/09/25 17:53 Sodium Chloride 1,000 ml @ 1,000 mls/hr Q1H ONCE IV 08/09/25 17:30 08/09/25 18:43 DC 08/09/25 17:30 Departure 1 Departure Time of Disposition: 17:55 Impression: Primary Impression: Hypotension Additional Impressions: EKG abnormalities NSTEMI (non-ST elevated myocardial infarction) Disposition: ADMITTED INPATIENT Admit to: [facility] Condition: Serious Critical Care Note Critical Care Time?: Yes (45 min-critical care time only) Stability Stability form required: No Heart Score Heart Score: Heart Score Response (Comments) Value History N/A 0 EKG N/A 0 Age N/A 0 Risk Factors N/A 0 Troponin N/A 0 Total 0 I personally scribed for MAGUE BARBER MD ([email or web address]) on 08/09/25 at 17:41. Electronically submitted by Laura Bowling ([facility]Fanwards). I personally scribed for MAGUE BARBER MD ([email or web address]) on 08/09/25 at 17:48. Electronically submitted by Laura Bowling ([facility]ITALCompufirst). MAGUE BARBER MD Aug 09, 2025 17:41
[2025-08-09] MEDS: NOREPINEPHRINE 8 MG/250ML KIT 250 ML IV SCH (17:53)
[2025-08-09 17:57] LABS: Albumin 3.7 g/dL (3.2-4.8); Anion Gap 17 (5-15); BUN/Creatinine Ratio 14.9 (10.0-20.0); Bilirubin, Total 0.3 mg/dL (0.2-1.0); Potassium 5.0 mmol/L (3.5-5.1); Sodium 143 mmol/L (136-145); Total Protein 6.4 g/dL (5.7-8.2)
[2025-08-09 18:29] LABS: Alanine Aminotransferase 153 U/L (7-40); Alkaline Phosphatase 139 U/L (46-116); Blood Urea Nitrogen 64 mg/dL (9-23); Calcium 8.5 mg/dL (8.7-10.4); Carbon Dioxide 16 mmol/L (20-31); Chloride 110 mmol/L (98-107); Glucose 158 mg/dL (74-106)
[2025-08-09 18:47] LABS: Lactic Acid w/Reflex 5.5 mmol/L (0.4-2.0)
[2025-08-09] MEDS ORDERED: NITROGLYCERIN 0.4 MG SL TAB SL PRN (19:00)
[2025-08-09] MEDS ORDERED: DEXTROSE (50%) 50ML SYRG IV PRN (19:00)
[2025-08-09] MEDS: CEFEPIME 1GM/50ML 50 ML IV ONE (19:00)
[2025-08-09] MEDS ORDERED: ACETAMINOPHEN 325 MG TAB PO PRN (19:00)
[2025-08-09] MEDS ORDERED: ONDANSETRON HCL 4 MG/2 ML VIAL IV PRN (19:00)
[2025-08-09] MEDS: HEPARIN SODIUM (PORCINE) 5000 UNITS/ML 1ML VIAL IV ONE ×2 (19:15→20:38)
[2025-08-09] MEDS: VANCOMYCIN 1GM/250ML KIT 250 ML IV ONE (19:30)
[2025-08-09 19:34] LABS: Iron 52.0 ug/dL (50-170)
[2025-08-09 19:34] LABS: INR 1.36 (0.9-1.15); Partial Thromboplastin Time 28.0 SEC (24.5-34.5); Prothrombin Time 14.0 sec (9.3-11.8)
[2025-08-09 19:40] LABS: Total Iron Binding Capacity 196.0 ug/dL (250-425)
--- NOTE | 2025-08-09 20:08 | DVH ---
CHEST RADIOGRAPH INDICATION: sob TECHNIQUE: 1 view COMPARISON: XY CHEST PORTABLE on DOS: 08/24/24 FINDINGS: Lines and Tubes: External leads and overlying defibrillator pad. Lungs/Pleura: Perihilar interstitial prominence redemonstrated. No focal consolidation, pleural effusion or pneumothorax. Cardiomediastinum: Heart size within normal limits. Other: No acute osseous abnormality. IMPRESSION: No acute cardiopulmonary abnormality or significant change from the prior exam. Interstitial opacities likely represent edema.
[2025-08-09] MEDS: HEPARIN DRIP/D5W 100UNITS/ML 250 ML IV SCH (20:30)
--- NOTE | 2025-08-09 21:30 | DVHINCON2 ---
Date of service: Aug 09, 2025 Referring Physician Andrzej Reason for Consultation NSTEMI History of Present Illness This is a 74-year-old female with a PMH of DM, High Lipids, HTN who was brought in by EMS with complaint shortness of breath. EMS states patient has being having shortness for breath for the past two days with associated productive cough and yellow phlegm. Patient stated that she has been having associated wea kness that has been getting progressively worse. EMS reports patient hypotensive upon their arrival. Chest x-ray showed NAD. HGB 7.8, HCT 25.3, LA 5.5, TROP 7416. EKG shows inferior and lateral T-wave inversions, right bundle-branch block, left posterior fascicular block. No STEMI. Patient was admitted to the hospital. I am asked to consult on this patient. Family History: Diabetes mellitus G8 MOTHER Hypertension G8 MOTHER Malignant neoplasm of breast G8 SISTER Malignant neoplasm of ovary G8 SISTER Allergies: Coded Allergies: NO KNOWN ALLERGIES (Unverified , 08/24/24) Home Meds Reported Medications Metoprolol Tartrate (Lopressor) 25 Mg Tb, 1 MG PO BID for 90 Days, #180 0 Refills 08/25/24 Acyclovir (Acyclovir) 400 Mg Tab, 1 TAB PO TID for 60 Days, #180 08/25/24 Aspirin (Aspirin Low Dose) 81 Mg Chw, 1 TAB PO DAILY for 30 Days, #30 08/25/24 Glipizide (Glipizide) 5 Mg Tab, 1 TAB PO BID for 90 Days, #180 08/25/24 Lidocaine (Lidocaine) 5 % Pad, 1 PATCH EX DAILY for 30 Days, #30 08/25/24 Rosuvastatin Calcium (Crestor) 10 Mg Tab, 1 TAB PO DAILY for 90 Days, #90 08/25/24 Enalapril Maleate (Enalapril Maleate) 20 Mg Tab, 1 TAB PO DAILY for 90 Days, #90 08/25/24 Nifedipine (Nifedipine Er) 30 Mg Tab, 1 TAB PO DAILY for 30 Days, #30 08/25/24 Pantoprazole Sodium Sesquihydr (Pantoprazole Sodium Dr) 40 Mg Tab, 20 MG PO DAILY for 30 Days, #30 08/25/24 Diclofenac Sodium (Topical) (Diclofenac Sodium) 1 % Gel, 2 APPLIC TD BID for 25 Days, #100 08/25/24 Gabapentin (Gabapentin) 800 Mg Tab, 1 TAB PO QID for 30 Days, #120 08/25/24 Hydrocodone-Acetaminophen (Hydrocodone Bitartrate/AC 10-325 mg) 1 Tab Tab, 1 TAB PO QID for 30 Days 08/24/24 Current Medications Current Medications Medications (Trade) Dose Ordered Sig/Drew Route PRN Reason Start Time Stop Time Status Last Admin Norepinephrine Bitartrate 250 ml @ 3.75 mls/hr Q24H IV 08/09/25 17:45 08/09/25 17:53 Cefepime HCl 50 ml @ 12.5 mls/hr DAILY IV 08/10/25 10:00 UNV Clopidogrel Bisulfate (Plavix) 75 mg DAILY PO 08/10/25 10:00 UNV Atorvastatin Calcium (Lipitor) 40 mg HS PO 08/09/25 22:00 UNV Ferrous Sulfate 325 mg BIDWM PO 08/10/25 08:00 UNV Diagnostic Test (Pha) (Accu-Chek Comfort Curve T) 1 strip ACHS 08/09/25 22:00 UNV Insulin Human Regular (InsuLIN R) ACHS SC 08/09/25 22:00 UNV Dextrose 50 ml UD PRN IV Blood Sugar LESS THAN 60 08/09/25 19:00 UNV Ondansetron HCl (Zofran) 4 mg Q4HP PRN IV NAUSEA / VOMITING 08/09/25 19:00 UNV Acetaminophen (Tylenol Tablet) 650 mg Q6HP PRN PO PAIN SCALE 1-3 OR TEMP>100.4 08/09/25 19:00 UNV Nitroglycerin (Ntrostat Sublingual) 0.4 mg Q5MINP PRN SL FOR CHEST PAIN 08/09/25 19:00 UNV Morphine Sulfate 2 mg Q30M PRN IV FOR CHEST PAIN 08/09/25 19:00 UNV Albuterol (Ventolin Medneb) 2.5 mg Q6HPRN PRN NEB SHORTNESS OF BREATH 08/09/25 19:00 UNV Heparin Sodium/ Dextrose 250 ml @ 9.816 mls/ hr Q24H IV 08/09/25 19:15 UNV Review of Systems Constitutional: reports: malaise, weakness; denies: chills, diaphoresis, fatigue, fever, sweats, others EENTM: denies: blurred vision, double vision, ear bleeding, ear discharge, ear drainage, ear pain, ear ringing, eye pain, eye redness, hearing loss, mouth pain, mouth swelling, nasal discharge, nose bleeding, nose congestion, nose pain, photophobia, tearing, throat pain, throat swelling, voice changes, others Respiratory: reports: cough, shortness of breath; denies: hemoptysis, orthopnea, SOB at rest, SOB with excertion, stridor, wheezing, others Cardiovascular: denies: chest pain, dizzy spells, diaphoresis, Dyspnea on exertion, edema, irregular heart beat, left arm pain, lightheadedness, palpitations, PND, syncope, others Gastrointestinal: denies: abdomen distended, abdominal pain, blood streaked bowels, constipated, diarrhea, dysphagia, difficulty swallowing, hematemesis, melena, nausea, poor appetite, poor fluid intake, rectal bleeding, rectal pain, vomiting, others Genitourinary: denies: abnormal vagina bleeding, burning, dyspareunia, dysuria, flank pain, frequency, hematuria, incontinence, pain, , vagina discharge, urgency, others Neurological: denies: dizziness, fainting, headache, left sided numbness, left sided weakness, numbness, paresthesia, pre-existing deficit, right sided numbness, right sided weakness, seizure, speech problems, tingling, tremors, weakness, others Musculoskeletal: denies: back pain, gout, joint pain, joint swelling, muscle pain, muscle stiffness, neck pain, others Integumetry: denies: bruises, change in color, change in hair/nails, dryness, laceration, lesions, lumps, rash, wounds, others Allergic/Immunocompromised: denies: Difficulty Healing, Frequent Infections, Hives, Itching, others Hematologic/Lymphatic: denies: anemia, blood clots, easy bleeding, easy bruising, swollen glands, others Endocrine: denies: excessive hunger, excessive sweating, excessive thirst, excessive urination, flushing, intolerance to cold, intolerance to heat, unexplained weight gain, unexplained weight loss, others Psychiatric: denies: anxiety, bipolar disorder, depression, hopeless, panic disorder, schizophrenia, sleepless, suicidal, others All Other Systems: Reviewed and Negative Vital Signs Vital Signs Date Time Temp Pulse Resp B/P (MAP) Pulse Ox O2 Delivery O2 Flow Rate FiO2 08/09/25 18:55 116/58 08/09/25 18:39 56 08/09/25 18:05 20 96 08/09/25 15:40 97.3 97.3 Physical Exam GENERAL: Alert and oriented x 3. No acute distress. EYES: PERRL, EOMI. Anicteric. HENT: Moist mucous membranes. LUNGS: Clear to auscultation bilaterally. CARDIOVASCULAR: Regular rate and rhythm. ABDOMEN: Soft, nontender and nondistended. EXTREMITIES: No edema. NEUROLOGIC: No focal neurological deficits. SKIN: Warm, dry. Labs/Diagnostic Data Labs Test 08/09/25 18:55 08/09/25 17:08 Range/Units White Blood Count 8.6 4.4-10.8 10^3/uL Red Blood Count 3.17 L 4.0-5.20 10^6/uL Hemoglobin 7.8 L 12.2-16.2 g/dL Hematocrit 25.3 L 36.0-46.0 % Mean Corpuscular Volume 79.8 L 80.0-100.0 fL Mean Corpuscular Hemoglobin 24.5 L 28.0-32.0 pg Mean Corpuscular Hemoglobin Concent 30.7 L 32.0-36.0 g/dL Red Cell Distribution Width 15.6 H 11.8-14.3 % Platelet Count 186 140-450 10^3/uL Mean Platelet Volume 7.8 6.9-10.8 fL Neutrophils (%) (Auto) 84.9 H 37.0-80.0 % Lymphocytes (%) (Auto) 8.9 L 10.0-50.0 % Monocytes (%) (Auto) 5.7 0.0-12.0 % Eosinophils (%) (Auto) 0.2 0.0-7.0 % Basophils (%) (Auto) 0.3 0.0-2.0 % Neutrophils # (Auto) 7.3 1.6-8.6 10 ^3/uL Lymphocytes # (Auto) 0.8 0.4-5.4 10 ^3/uL Monocytes # (Auto) 0.5 0-1.3 10 ^3/uL Eosinophils # (Auto) 0 0-0.8 10 ^3/uL Basophils # (Auto) 0 0-0.2 10 ^3/uL Nucleated Red Blood Cells 3.0 % Sodium Level 143 136-145 mmol/L Potassium Level 5.0 3.5-5.1 mmol/L Chloride Level 110 H 98-107 mmol/L Carbon Dioxide Level 16 L 20-31 mmol/L Anion Gap 17 H 5-15 Blood Urea Nitrogen 64 H 9-23 mg/dL Creatinine 4.29 H 0.550-1.02 mg/dL Glomerular Filtration Rate Calc 10 >90 mL/min BUN/Creatinine Ratio 14.9 10.0-20.0 Serum Glucose 158 H 74-106 mg/dL Lactic Acid Level 5.5 *H 0.4-2.0 mmol/L Calcium Level 8.5 L 8.7-10.4 mg/dL Total Bilirubin 0.3 0.2-1.0 mg/dL Aspartate Amino Transferase (AST) 178 H 13-40 U/L Alanine Aminotransferase (ALT) 153 H 7-40 U/L Alkaline Phosphatase 139 H 46-116 U/L Total Protein 6.4 5.7-8.2 g/dL Albumin 3.7 3.2-4.8 g/dL Assessment Hypotension. NSTEMI (non-ST elevated myocardial infarction). DM. HLD. Plan/Recommendation I agree with your ongoing assessment and care of plan. Echocardiogram. Lipitor, Plavix. IV antibiotics as ordered. Heparin drip per pharmacy. Nitro SL. Vasopressors for hemodynamic support. Additional plan as per the hospital course. Critical care time of 90 minutes provided to include time spent evaluation of patient at bedside, when appropriate patient/family education for diagnosis, treatment plan, review of pertinent medical information and discussion of care with specialty providers and PCP. Plan discussed with: Patient JENAE ROBERTS MD Aug 09, 2025 19:33
--- NOTE | 2025-08-09 21:53 | DVH ---
US limited, RUQ INDICATION: transaminitis COMPARISON: None TECHNIQUE: Limited ultrasound of the abdomen was performed and reviewed. FINDINGS: The pancreas is not seen due to overlying bowel gas. Unremarkable homogeneous liver echogenicity. Possible dilated intrahepatic ducts. Cholecystectomy. The common bile duct measures 9 mm, dilated. The right kidney is 9.4 cm. No evidence for hydronephrosis. Partially visualized trace ascites and bilateral pleural effusions. IMPRESSION: Cholecystectomy. Dilated common bile duct and possible dilated intrahepatic ducts. While this could be related to post cholecystectomy reservoir effect, MRCP may be obtained for further evaluation if there is concern for underlying obstruction.
[2025-08-09] MEDS: InsuLIN REG 1unit/0.01ml Soln (100units/ml) SC SCH (22:00)
[2025-08-09] MEDS: ATORVASTATIN 20 MG TAB PO SCH (22:00)
[2025-08-09] MEDS: ACCU-CHEK COMFORT CURVE STRIP VI SCH (22:00)
--- NOTE | 2025-08-09 22:16 | CONS ---
Pharmacy Clinical Information: HEPARIN PER [facility] PROTOCOL: Baseline labs drawn on 08/09 @1708. Bolus of 4000 units + initial rate of 1000 units Heparin per hour (10mL/hr). Orders read back and confirmed with ISABELA Jackson @1930. Heparin started at 2029. Next APTT scheduled for 08/10 @0230. MARICHUY HOFFMAN PHARMACIST Aug 09, 2025 22:16
[2025-08-09 23:29] VITALS: BP 116/58; PULSE 56; RESP 14; O2SAT 96
[2025-08-10] MEDS: MORPHINE SULFATE INJ 2 MG/ml SYRG IV PRN (01:06)
[2025-08-10 02:51] LABS: Hematocrit 25.4 % (36.0-46.0); Hemoglobin 7.7 g/dL (12.2-16.2); Mean Corpuscular Hemoglobin 24.0 pg (28.0-32.0); Mean Corpuscular Volume 78.9 fL (80.0-100.0); Nucleated Red Blood Cells % 1.5 %
[2025-08-10 03:08] LABS: Albumin 3.7 g/dL (3.2-4.8); Anion Gap 13 (5-15); BUN/Creatinine Ratio 15.6 (10.0-20.0); Potassium 4.3 mmol/L (3.5-5.1); Sodium 143 mmol/L (136-145); Total Protein 6.1 g/dL (5.7-8.2)
[2025-08-10 03:18] LABS: Alanine Aminotransferase 146 U/L (7-40); Alkaline Phosphatase 128 U/L (46-116); Bilirubin, Total 0.2 mg/dL (0.2-1.0); Blood Urea Nitrogen 65 mg/dL (9-23); Calcium 8.0 mg/dL (8.7-10.4); Carbon Dioxide 19 mmol/L (20-31); Chloride 111 mmol/L (98-107); Glucose 171 mg/dL (74-106)
[2025-08-10 03:23] LABS: INR 1.42 (0.9-1.15); Prothrombin Time 14.5 sec (9.3-11.8)
[2025-08-10 03:36] LABS: Partial Thromboplastin Time 107.7 SEC (24.5-34.5)
[2025-08-10] MEDS: HEPARIN DRIP/D5W 100UNITS/ML 250 ML IV SCH ×2 (04:30→11:57)
--- NOTE | 2025-08-10 04:53 | DVHHP2 ---
History of Present Illness Reason for Visit: Shortness for breath History of Present Illness 74-year-old female presents for evaluation of shortness for breath. Patient endorses a two day history of shortness for breath with associated productive cough with yellowish phlegm. Patient denies chest pain or palpitations. No fever or chills. No abdominal pain. Past Medical History Hypertension, dyslipidemia, diabetes mellitus Past Surgical History Cholecystectomy Family History Noncontributory Smoke: No ALCOHOL: none Drugs: None Lives: with Family Review of Systems Review of Systems Review of systems are currently negative otherwise addressed in HPI. Allergies: Coded Allergies: NO KNOWN ALLERGIES (Unverified , 08/24/24) Medications Current Medications Medications Dose Ordered Sig/Drew Route Start Time Stop Time Status Last Admin Dose Admin Norepinephrine Bitartrate 250 ml @ 3.75 mls/hr Q24H IV 08/09/25 17:45 08/09/25 17:53 3.75 MLS/HR Cefepime HCl 50 ml @ 12.5 mls/hr DAILY IV 08/10/25 10:00 Clopidogrel Bisulfate 75 mg DAILY PO 08/10/25 10:00 Atorvastatin Calcium 40 mg HS PO 08/09/25 22:00 08/09/25 22:00 40 MG Ferrous Sulfate 325 mg BIDWM PO 08/10/25 08:00 Diagnostic Test (Pha) 1 strip ACHS 08/09/25 22:00 08/09/25 22:00 1 STRIP Insulin Human Regular ACHS SC 08/09/25 22:00 Dextrose 50 ml UD PRN IV 08/09/25 19:00 Ondansetron HCl 4 mg Q4HP PRN IV 08/09/25 19:00 Hold Acetaminophen 650 mg Q6HP PRN PO 08/09/25 19:00 Nitroglycerin 0.4 mg Q5MINP PRN SL 08/09/25 19:00 Morphine Sulfate 2 mg Q30M PRN IV 08/09/25 19:00 08/10/25 01:06 2 MG Albuterol 2.5 mg Q6HPRN PRN NEB 08/09/25 19:00 Heparin Sodium/ Dextrose 250 ml @ 7 mls/hr Q24H IV 08/10/25 04:30 Exam Vital Signs Vital Signs Date Time Temp Pulse Resp B/P (MAP) Pulse Ox O2 Delivery O2 Flow Rate FiO2 08/10/25 04:00 53 14 115/54 (74) 98 08/09/25 23:29 6.0 44 08/09/25 19:30 Non-Rebreather 08/09/25 19:00 97.8 97.8 Exam Gen: 74-year-old female in mild distress. Skin: Warm, dry, normal color and texture, no rash. HEENT: Normocephalic atraumatic, mucous membranes moist and pink. Neck: Cervical and supraclavicular nodes normal without enlargement, trachea is midline, thyroid gland is normal without masses. Pulmonary: Clear to auscultation and percussion bilaterally. Cardiac: Regular rate and rhythm. No murmur Abdomen: Soft, nontender, nondistended, bowel sounds present all 4 quadrants, no guarding, no rigidity, no organomegaly. Extremities: No cyanosis, clubbing, no edema Neuro: Cranial nerves II through XII grossly intact, normal affect and speech, no focal motor deficits. Labs/Xrays ORDERING PHYSICIAN: SHARRON DOTY PROCEDURE(s): LIVUS - LIVER REASON: transaminitis ORDER NUMBER(s): [id number], ACCESSION NUMBER(s): [id number] US limited, RUQ INDICATION: transaminitis COMPARISON: None TECHNIQUE: Limited ultrasound of the abdomen was performed and reviewed. FINDINGS: The pancreas is not seen due to overlying bowel gas. Unremarkable homogeneous liver echogenicity. Possible dilated intrahepatic ducts. Cholecystectomy. The common bile duct measures 9 mm, dilated. The right kidney is 9.4 cm. No evidence for hydronephrosis. Partially visualized trace ascites and bilateral pleural effusions. IMPRESSION: Cholecystectomy. Dilated common bile duct and possible dilated intrahepatic ducts. While this could be related to post cholecystectomy reservoir effect, MRCP may be obtained for further evaluation if there is concern for underlying obstruction. RING PHYSICIAN: SHARRON DOTY PROCEDURE(s): CXR1 - CHEST XRAY 1 VIEW REASON: sob ORDER NUMBER(s): [id number], ACCESSION NUMBER(s): [id number] CHEST RADIOGRAPH INDICATION: sob TECHNIQUE: 1 view COMPARISON: XY CHEST PORTABLE on DOS: 08/24/24 FINDINGS: Lines and Tubes: External leads and overlying defibrillator pad. Lungs/Pleura: Perihilar interstitial prominence redemonstrated. No focal consolidation, pleural effusion or pneumothorax. Cardiomediastinum: Heart size within normal limits. Other: No acute osseous abnormality. IMPRESSION: No acute cardiopulmonary abnormality or significant change from the prior exam. Interstitial opacities likely represent edema. Labs Test 08/10/25 02:34 08/09/25 22:10 08/09/25 21:05 08/09/25 19:44 Range/Units White Blood Count 11.6 #H 4.4-10.8 10^3/uL Red Blood Count 3.22 L 4.0-5.20 10^6/uL Hemoglobin 7.7 L 12.2-16.2 g/dL Hematocrit 25.4 L 36.0-46.0 % Mean Corpuscular Volume 78.9 L 80.0-100.0 fL Mean Corpuscular Hemoglobin 24.0 L 28.0-32.0 pg Mean Corpuscular Hemoglobin Concent 30.4 L 32.0-36.0 g/dL Red Cell Distribution Width 15.3 H 11.8-14.3 % Platelet Count 197 140-450 10^3/uL Mean Platelet Volume 8.2 6.9-10.8 fL Neutrophils (%) (Auto) 82.6 H 37.0-80.0 % Lymphocytes (%) (Auto) 8.8 L 10.0-50.0 % Monocytes (%) (Auto) 7.0 0.0-12.0 % Eosinophils (%) (Auto) 0.9 0.0-7.0 % Basophils (%) (Auto) 0.7 0.0-2.0 % Neutrophils # (Auto) 9.6 H 1.6-8.6 10 ^3/uL Lymphocytes # (Auto) 1.0 0.4-5.4 10 ^3/uL Monocytes # (Auto) 0.8 0-1.3 10 ^3/uL Eosinophils # (Auto) 0.1 0-0.8 10 ^3/uL Basophils # (Auto) 0.1 0-0.2 10 ^3/uL Nucleated Red Blood Cells 1.5 % Prothrombin Time 14.5 H 9.3-11.8 sec Prothrombin Time INR 1.42 H 0.9-1.15 Activated Partial Thromboplast Time 107.7 *H 24.5-34.5 SEC Sodium Level 143 136-145 mmol/L Potassium Level 4.3 3.5-5.1 mmol/L Chloride Level 111 H 98-107 mmol/L Carbon Dioxide Level 19 L 20-31 mmol/L Anion Gap 13 5-15 Blood Urea Nitrogen 65 H 9-23 mg/dL Creatinine 4.18 H 0.550-1.02 mg/dL Glomerular Filtration Rate Calc 10 >90 mL/min BUN/Creatinine Ratio 15.6 10.0-20.0 Serum Glucose 171 H 74-106 mg/dL Calcium Level 8.0 L 8.7-10.4 mg/dL Total Bilirubin 0.2 0.2-1.0 mg/dL Aspartate Amino Transferase (AST) 151 H 13-40 U/L Alanine Aminotransferase (ALT) 146 H 7-40 U/L Alkaline Phosphatase 128 H 46-116 U/L Total Protein 6.1 5.7-8.2 g/dL Albumin 3.7 3.2-4.8 g/dL POC Glucose 181 H 70-106 mg/dl D-Dimer, Quantitative 12.00 H 0.0-0.49 mg/L FEU Troponin I High Sensitivity 7038 *H </=34 ng/L Lactic Acid Level 2.1 *H 0.4-2.0 mmol/L Test 08/09/25 18:55 08/09/25 17:08 Range/Units Iron Level 52 50-170 ug/dL Total Iron Binding Capacity 196 L 250-425 ug/dL Percent Iron Saturation 26.5 15-50 % B-Type Natriuretic Peptide 608.01 0-100 pg/mL SEPSIS Sepsis Screen Date sepsis recognized/suspect: Aug 09, 2025 Time Sepsis recognized/suspect: 1929 Recent Procedure: No On Antibiotic Therapy: No Respiratory Rate >20: Yes Heart Rate >90: No Temp<36 C (96.8 F) or >38.3 C: No SBP <90 or MAP <65 mmHG: No New Acute Mental Status Change: No Is the patient on CPAP, BIPAP,: No Physician Orders Admit (08/09/25 21:05) Stool Occult Blood (08/09/25 22:07) Nm Vq Scan (08/10/25 03:31) PTPTT (08/10/25 09:30) Heparin Drip/D5w 100units/Ml (08/10/25 04:30) Transfer Orders (08/10/25 04:45) Npo Except For Medications (08/10/25 04:48) Npo (Nothing By Mouth) Diet (08/10/25 Breakfast) Vital Signs Date Time Temp Pulse Resp B/P (MAP) Pulse Ox O2 Delivery O2 Flow Rate FiO2 08/10/25 04:00 53 14 115/54 (74) 98 08/10/25 04:00 53 08/10/25 03:30 53 14 137/56 (83) 97 08/10/25 03:00 54 14 130/56 (80) 97 08/10/25 02:30 53 14 115/49 (71) 97 08/10/25 02:00 54 14 131/51 (77) 98 08/10/25 01:45 53 14 138/54 (82) 96 08/10/25 01:36 53 14 138/54 08/10/25 01:30 54 14 128/58 (81) 97 08/10/25 01:15 55 15 131/62 (85) 100 08/10/25 01:06 61 15 129/56 08/10/25 01:00 54 13 129/56 (80) 98 08/10/25 00:45 52 15 127/55 (79) 97 08/10/25 00:30 50 13 136/61 (86) 97 08/10/25 00:15 53 14 123/57 (79) 97 08/10/25 00:00 53 14 123/51 (75) 97 08/10/25 00:00 53 08/09/25 23:45 54 15 124/67 (86) 99 08/09/25 23:30 56 14 134/58 (83) 99 08/09/25 23:29 56 14 116/58 96 6.0 44 08/09/25 23:15 60 16 136/52 (80) 99 08/09/25 23:00 79 20 133/53 (79) 88 08/09/25 22:45 72 17 130/62 (84) 98 08/09/25 22:30 63 17 114/51 (72) 97 08/09/25 22:15 59 15 127/59 (81) 96 08/09/25 22:00 61 17 121/61 (81) 92 08/09/25 21:55 121/61 08/09/25 21:45 60 18 124/57 (79) 92 08/09/25 21:30 60 18 114/54 (74) 95 08/09/25 21:15 57 18 124/53 (76) 98 08/09/25 21:00 59 18 123/60 (81) 97 08/09/25 20:55 123/60 Laboratory Tests Test 08/09/25 17:08 08/09/25 19:44 08/10/25 02:34 Lactic Acid Level 5.5 mmol/L (0.4-2.0) *H 2.1 mmol/L (0.4-2.0) *H White Blood Count 8.6 10^3/uL (4.4-10.8) 11.6 10^3/uL (4.4-10.8) #H Medications Medications Dose Ordered Sig/Drew Route Start Time Stop Time Status Last Admin Dose Admin Atorvastatin Calcium 40 mg HS PO 08/09/25 22:00 08/09/25 22:00 40 MG Cefepime HCl 50 ml @ 50 mls/hr ONCE ONCE IV 08/09/25 19:00 08/09/25 19:59 DC 08/09/25 19:00 50 MLS/HR Diagnostic Test (Pha) 1 strip ACHS 08/09/25 22:00 08/09/25 22:00 1 STRIP Heparin Sodium (Porcine) 4,000 units ONCE ONCE IV 08/09/25 19:30 08/09/25 19:32 DC 08/09/25 20:38 4,000 UNITS Heparin Sodium/ Dextrose 250 ml @ 10 mls/hr Q24H IV 08/09/25 19:15 08/10/25 03:50 DC 08/09/25 20:30 10 MLS/HR Morphine Sulfate 2 mg Q30M PRN IV 08/09/25 19:00 08/10/25 01:06 2 MG Norepinephrine Bitartrate 250 ml @ 3.75 mls/hr Q24H IV 08/09/25 17:45 08/09/25 17:53 3.75 MLS/HR Sodium Chloride 1,000 ml @ 1,000 mls/hr Q1H ONCE IV 08/09/25 17:30 08/09/25 18:43 DC 08/09/25 17:30 1,000 MLS/HR Vancomycin HCl 250 ml @ 250 mls/hr ONCE ONCE IV 08/09/25 19:30 08/09/25 20:29 DC 08/09/25 19:30 250 MLS/HR Assessment/Plan Assessment/Plan Assessment NSTEMI ? Sepsis Pneumonitis Diabetes mellitus Anemia Acute renal failure Elevated D-dimer Plan Admit the patient t ICU to the hospitalist Cardiology consultation Nephrology consult NPO except medications V/Q scan pending Continue heparin drip Continue treatment per orders Total critical care time excluding procedures performed this 55 minutes Plan discussed with: Patient My Orders Orders - SHARRON DOTY Procedure Category Date Status Time Chest Xray 1 View XY 08/09/25 Resulted 19:00 LIVER US 08/09/25 Resulted 19:00 *[facility] CONS 08/09/25 Transmitted -[place] 19:00 Cefepime 1gm/50ml PHA 08/10/25 In Process (Maxipime 1gm/50ml) 10:00 Clopidogrel Bisulfate PHA 08/10/25 In Process (Plavix) 10:00 Atorvastatin (Lipitor) PHA 08/09/25 In Process 22:00 Ferrous Sulfate Tablet PHA 08/10/25 In Process 08:00 Glucose Blood PHA 08/09/25 In Process (Accu-Chek Comfort 22:00 Insulin R (Human) PHA 08/09/25 In Process (Insulin R) 22:00 Dextrose 50% Syringe PHA 08/09/25 In Process 19:00 Ondansetron Hcl PHA 08/09/25 In Process (Zofran) 19:00 Echo 2d Mode Cardiac US 08/09/25 Logged DOP 19:00 Condition: Unstable MACKENZIE 08/09/25 In Process 19:00 Acetaminophen Tablet PHA 08/09/25 In Process (Tylenol Tablet) 19:00 Bedrest With Bathroom MACKENZIE 08/09/25 In Process Privileg 19:00 Nitroglycerin PHA 08/09/25 In Process Sublingual (Ntrostat 19:00 Morphine Sulfate PHA 08/09/25 In Process Injection 19:00 Stat Ekg For Chest MACKENZIE 08/09/25 In Process Pain 19:00 Notify Of Changes MACKENZIE 08/09/25 In Process From Base 19:00 Thermospray Operator For MACKENZIE 08/09/25 In Process 24 Hours 19:00 Emergency Dysrhythmia MACKENZIE 08/09/25 In Process Protocol 19:00 Rhythm Strips Once MACKENZIE 08/09/25 In Process Every Shift 19:00 Oxygen By Nasal RT 08/09/25 Transmitted Cannula 19:00 Albuterol Medneb PHA 08/09/25 In Process (Ventolin Medneb) 19:00 Admit ADMIT 08/09/25 Transmitted 21:05 Stool Occult Blood LAB 08/09/25 Logged 22:07 Nm Vq Scan NM 08/10/25 Logged 03:31 Transfer Orders XFER 08/10/25 Transmitted 04:45 Npo Except For MACKENZIE 08/10/25 Transmitted Medications 04:48 Npo (Nothing By DIET 08/10/25 Transmitted Mouth) Diet Breakfast Date of Service: Aug 09, 2025 Billing Provider: SHARRON DOTY Common Visit Codes: [id number] CARE 30-74 MIN SHARRON DOTY Aug 10, 2025 04:53
[2025-08-10] MEDS: FERROUS SULFATE 325mg EC TAB PO SCH (08:10)
[2025-08-10 08:25] VITALS: O2SAT 95
[2025-08-10 08:42] LABS: Urine Protein, UAD 1+ (Negative)
[2025-08-10 09:26] VITALS: PULSE 60; RESP 20; O2SAT 100
[2025-08-10 10:23] LABS: INR 1.24 (0.9-1.15); Partial Thromboplastin Time 45.5 SEC (24.5-34.5); Prothrombin Time 12.9 sec (9.3-11.8)
--- NOTE | 2025-08-10 11:28 | CONS ---
Pharmacy Clinical Information: INCREASED TO NEW HEPARIN RATE @900 UNITS/HR OR 9 ML/HR SINCE APTT = 45.5 @0948 ON 08/10 PER RX PROTOCOL. NEXT APTT MARIO 6 HRS FROM STARTING NEW RATE VELYSHA AWARE HEPARIN INCREASED FROM 7ML/HR TO 9 ML/HR AND REPEATED ORDER BACK. GABBY CALLAHAN PHARMACIST Aug 10, 2025 11:28
[2025-08-10] MEDS ORDERED: ACETAMINOPHEN 325 MG TAB PO PRN (13:15)
[2025-08-10 13:17] LABS: Base Excess -7.8 mmol/L (-2.0-3.0)
[2025-08-10 13:34] LABS: COVID19 ANTIGEN SOFIA FIA NEGATIVE (NEGATIVE)
[2025-08-10] MEDS: HYDROcodone-ACET 10/325MG TAB PO PRN (13:53)
--- NOTE | 2025-08-10 13:56 | ECG ---
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
--- NOTE | 2025-08-10 14:35 | DVH ---
NUCLEAR MEDICINE VENTILATION/PERFUSION LUNG SCAN. INDICATION: PULMONARY EMBOLISM COMPARISON: None TECHNIQUE: Following intravenous demonstration of 4.2 millicuries of technetium 99m MAA, and inhalation of 4.5 mCi of Xe 133 scintigrams were obtained in multiple projections of the lungs. FINDINGS: There is normal uptake of radionuclide on both the ventilation and perfusion portions of the examination. No mismatched perfusion defects are demonstrated. Uptake is normally homogeneous. IMPRESSION: Low probability for PE.
[2025-08-10] MEDS: GABAPENTIN 400 MG CAP PO SCH (15:07)
[2025-08-10] MEDS: CEFEPIME 1GM/50ML 50 ML IV SCH (15:07)
[2025-08-10] MEDS: CLOPIDOGREL BISULFATE 75 MG TAB PO SCH (15:07)
--- NOTE | 2025-08-10 17:00 | ECG ---
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
--- NOTE | 2025-08-10 17:00 | ECG ---
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
[2025-08-10] MEDS ORDERED: HYDROcodone-ACET 10/325MG TAB PO SCH (18:00)
[2025-08-10 18:20] LABS: INR 1.15 (0.9-1.15); Partial Thromboplastin Time 49.6 SEC (24.5-34.5); Prothrombin Time 12.0 sec (9.3-11.8)
--- NOTE | 2025-08-10 19:26 | DVHPN2 ---
Assessment/Plan Assessment/Plan progress note 74 F with CKD4, chronic pain, admitted for SOB w/ cough. In ED found to have elevated trop, hypoxic. started on abx, o2 supp on simple mask, cardio consulted, started on heparin drip. 08/10 pending echo, breathing improved, transition to NC. send covid flu physical exam aox4 coarse breath sounds s1 s2 systolic murmur abdomen soft nontender no LE edema labs ekg imaging reviewed assessment and plan NSTEMI type 1 cardiogenic shock rule out PE acute hypoxic RF PNA gp vs gn transaminitis CHAD on CKD 4 metabolic acidosis acute systolic HF? MR? TR? dilated bile duct s/p cholecystectomy? vs BD disease chronic pain DM HTN obesity heparin drip cardio consult appreciated vq svan asa, Plavix, Lipitor cefepime levo maintain MAP >65 insulin per protocol resume home pain meds, CURES reviewed, [place] 10 q6, gabapentin 400 QID hold anti HTN, will resume once off pressor resume diet send COVID, flu renal consult trend CR diet cardiac diabetic renal dvt ppx on heparin drip full code condition critical prognosis poor critical care time 55 minutes Plan discussed with: Other My Orders Orders - VY GARNER MD Procedure Category Date Status Time Hydrocodone-Acet PHA 08/10/25 In Process 10325mg Tab ([place] 11:30 Communication Order ORDERS 08/10/25 Transmitted 11:28 Aspirin Chewable PHA 08/11/25 In Process Tablet 10:00 Consistent DIET 08/10/25 Transmitted Carb(Ccho)Diabetes Lunch Abg W/ Co-Ox RT 08/10/25 Logged 11:28 Communication Order ORDERS 08/10/25 Transmitted 11:28 Hydrocodone-Acet PHA 08/10/25 In Process 10/325mg Tab ([place] 18:00 Gabapentin Capsule PHA 08/11/25 In Process (Neurontin Capsule) 10:00 Basic Metabolic Panel LAB 08/11/25 Verified 04:00 Complete Blood Count LAB 08/11/25 Verified 04:00 Date of Service: Aug 10, 2025 Billing Provider: VY GARNER MD Common Visit Codes: [id number] CARE 30-74 MIN VY GARNER MD Aug 10, 2025 19:26
[2025-08-10 19:30] VITALS: PULSE 62; RESP 14; O2SAT 99
[2025-08-10 21:40] LABS: Protein, Urine 117.1 mg/dL (1-14)
[2025-08-10 22:07] VITALS: BP 175/83; PULSE 71; RESP 16; TEMP 98.8; O2SAT 96
[2025-08-10 22:29] VITALS: BP 175/83; PULSE 68; RESP 17; TEMP 98.8; O2SAT 96
[2025-08-10 23:01] VITALS: O2SAT 96
[2025-08-10] MEDS ORDERED: FURO40TA4 PO (23:20)
--- NOTE | 2025-08-10 23:57 | DVHPN2 ---
Progress Note - Dictate Date Seen: Aug 10, 2025 Medical Necessity Reason Pt with a Central, PICC or Fol: No Subjective Patient was seen and evaluated in follow up. Patient was downgraded to tele bed. Patient is complaining of SOB. She is on 6 L via mask. Patient is on heparin drip. WBC 11.6, HGB 7.7, HCT 25.4, CO2 19, BUN 65, HEAD BUYER TOBACCO 4.18, AST 151, ALT 146. Liver US shows cholecystectomy, dilated common bile duct and possible dilated intrahepatic ducts. VQ scan shows low probability for PE. vital signs Vital Sign Date Time Temp Pulse Resp B/P (MAP) Pulse Ox O2 Delivery O2 Flow Rate FiO2 08/10/25 09:26 97.3 60 20 112/67 (82) 100 97.3 08/10/25 09:26 Simple Mask* 6 50 Total Intake and Output 08/09/25 08/09/25 08/10/25 15:00 23:00 07:00 Intake Total 1326 ml 20 ml Balance 1326 ml 20 ml medications Current Medications Medications Dose Ordered Sig/Drew Route Start Time Stop Time Status Last Admin Dose Admin Norepinephrine Bitartrate 250 ml @ 3.75 mls/hr Q24H IV 08/09/25 17:45 08/09/25 17:53 3.75 MLS/HR Cefepime HCl 50 ml @ 12.5 mls/hr DAILY IV 08/10/25 10:00 Clopidogrel Bisulfate 75 mg DAILY PO 08/10/25 10:00 Atorvastatin Calcium 40 mg HS PO 08/09/25 22:00 08/09/25 22:00 40 MG Ferrous Sulfate 325 mg BIDWM PO 08/10/25 08:00 08/10/25 08:10 325 MG Diagnostic Test (Pha) 1 strip ACHS 08/09/25 22:00 08/10/25 07:00 1 STRIP Insulin Human Regular ACHS SC 08/09/25 22:00 Dextrose 50 ml UD PRN IV 08/09/25 19:00 Ondansetron HCl 4 mg Q4HP PRN IV 08/09/25 19:00 Hold Acetaminophen 650 mg Q6HP PRN PO 08/09/25 19:00 Nitroglycerin 0.4 mg Q5MINP PRN SL 08/09/25 19:00 Morphine Sulfate 2 mg Q30M PRN IV 08/09/25 19:00 08/10/25 08:10 2 MG Albuterol 2.5 mg Q6HPRN PRN NEB 08/09/25 19:00 Heparin Sodium/ Dextrose 250 ml @ 9 mls/hr Q24H IV 08/10/25 11:30 08/10/25 11:57 9 MLS/HR Gabapentin 800 mg QID PO 08/10/25 12:00 UNV Acetaminophen/ Hydrocodone Bitart 1 tab Q6HP PRN PO 08/10/25 11:30 UNV Aspirin 81 mg DAILY PO 08/11/25 10:00 UNV objective GENERAL: Alert and oriented x 3. No acute distress. EYES: PERRL, EOMI. Anicteric. HENT: Moist mucous membranes. LUNGS: Clear to auscultation bilaterally. CARDIOVASCULAR: Regular rate and rhythm. ABDOMEN: Soft, nontender and nondistended. EXTREMITIES: No edema. NEUROLOGIC: No focal neurological deficits. SKIN: Warm, dry. laboratory and microbiology Laboratory Tests 08/10/25 02:34 Test 08/10/25 02:34 Range/Units Serum Glucose 171 H 74-106 mg/dL Problem List Hypotension. NSTEMI (non-ST elevated myocardial infarction). DM. HLD. Assessment/Plan Continued all current supportive medical care. Echocardiogram. Morphine and [place] for pain management. Aspirin, Lipitor, Plavix. Heparin drip per pharmacy. Nitro SL. Additional plan as per the hospital course. Plan discussed with: Patient JENAE ROBERTS MD Aug 10, 2025 12:26
[2025-08-11] VITALS (9 sets, daily range): BP systolic 159–182; BP diastolic 77–98; PULSE 58–70; RESP 16–19; TEMP 97.3–98.1; O2SAT 94–100
[2025-08-11 01:13] LABS: INR 1.14 (0.9-1.15); Prothrombin Time 11.9 sec (9.3-11.8)
[2025-08-11 01:20] LABS: Partial Thromboplastin Time 74.3 SEC (24.5-34.5)
[2025-08-11] MEDS: HEPARIN DRIP/D5W 100UNITS/ML 250 ML IV SCH (02:46)
[2025-08-11] MEDS ORDERED: GABAPENTIN 300 MG CAP PO SCH (06:00)
[2025-08-11 07:04] LABS: Calcium 8.7 mg/dL (8.7-10.4); Potassium 3.8 mmol/L (3.5-5.1); Sodium 143 mmol/L (136-145)
[2025-08-11 07:05] LABS: Anion Gap 15 (5-15)
[2025-08-11 07:06] LABS: Hematocrit 26.4 % (36.0-46.0); Hemoglobin 8.2 g/dL (12.2-16.2)
[2025-08-11 07:09] LABS: Mean Corpuscular Hemoglobin 24.2 pg (28.0-32.0); Mean Corpuscular Volume 77.7 fL (80.0-100.0); Nucleated Red Blood Cells % 3.2 %
[2025-08-11 07:10] LABS: BUN/Creatinine Ratio 18.7 (10.0-20.0); Glucose 85 mg/dL (74-106)
[2025-08-11 07:13] LABS: Blood Urea Nitrogen 56 mg/dL (9-23); Carbon Dioxide 20 mmol/L (20-31); Chloride 108 mmol/L (98-107)
[2025-08-11 07:32] LABS: INR 1.12 (0.9-1.15); Partial Thromboplastin Time 60.1 SEC (24.5-34.5); Prothrombin Time 11.7 sec (9.3-11.8)
[2025-08-11] MEDS: GABAPENTIN 300 MG CAP PO SCH (09:17)
[2025-08-11] MEDS: ENALAPRIL MALEATE 10 MG TAB PO SCH (09:19)
[2025-08-11] MEDS ORDERED: HYDR12.59 PO (09:28)
[2025-08-11] MEDS ORDERED: ISOS1TAB28 PO (09:28)
[2025-08-11] MEDS ORDERED: TIZA4CAP PO (09:28)
[2025-08-11] MEDS ORDERED: GABAPENTIN 400 MG CAP PO SCH (10:00)
[2025-08-11 10:18] LABS: Hepatitis B Surface Antigen Negative (Negative)
[2025-08-11 10:41] LABS: Hepatitis C Antibody Negative (Negative)
[2025-08-11] MEDS: FUROSEMIDE 20 MG/2 ML VIAL IV SCH (10:47)
[2025-08-11] MEDS: ISOSORBIDE DINITRATE 10 MG TAB PO SCH (11:27)
--- NOTE | 2025-08-11 11:45 | DVHPN2 ---
Assessment/Plan Assessment/Plan progress note 74 F with CKD4, chronic pain, admitted for SOB w/ cough. In ED found to have elevated trop, hypoxic. started on abx, o2 supp on simple mask, cardio consulted, started on heparin drip. 08/10 pending echo, breathing improved, transition to NC. send covid flu 08/11 on heparin drip, improved, explain abt cannot give jordan 3.2g daily iso CKD. cr improved. c/w heparin 48 hours total. echo pending physical exam aox4 coarse breath sounds s1 s2 systolic murmur abdomen soft nontender no LE edema labs ekg imaging reviewed assessment and plan NSTEMI type 1 cardiogenic shock rule out PE acute hypoxic RF PNA gp vs gn transaminitis CHAD on CKD 4 metabolic acidosis acute systolic HF? MR? TR? dilated bile duct s/p cholecystectomy? vs BD disease chronic pain DM HTN obesity heparin drip cardio consult appreciated vq svan asa, Plavix, Lipitor cefepime levo maintain MAP >65 insulin per protocol resume home pain meds, CURES reviewed, [place] 10 q6, gabapentin 400 QID hold anti HTN, will resume once off pressor resume diet send COVID, flu renal consult trend CR diet cardiac diabetic renal dvt ppx on heparin drip full code condition critical prognosis poor Plan discussed with: Patient My Orders Orders - VY GARNER MD Procedure Category Date Status Time Hydrocodone-Acet PHA 08/10/25 In Process 10/325mg Tab ([place] 18:00 Mrsa Screen BUSTER 08/10/25 Uncollected 22:55 Furosemide Injection PHA 08/11/25 In Process (Lasix Injection) 10:00 Hydralazine Hcl PHA 08/11/25 In Process Tablet (Apresoline 14:00 Isosorbide Dinitrate PHA 08/11/25 In Process Tablet (Isordil Tab 12:00 Date of Service: Aug 11, 2025 Billing Provider: VY GARNER MD Common Visit Codes: [id number] INP/OBS CARE(HIGH) VY GARNER MD Aug 11, 2025 11:45
--- NOTE | 2025-08-11 13:27 | DVHSR ---
APPROVED REPORT EXAM: Two-dimensional and M-mode echocardiogram with Doppler, color Doppler and Bubble Study. Blood Pressure: 132/59 mmHg INDICATION Dyspnea Heart Failure ef RISK FACTORS Height: 5' 4", Weight: 180 DIMENSIONS LVDd 4.7 (3.8-5.7cm) LA (2D) 4.1 (1.9-4.0cm) Aortic Root 3.2 (2.0-3.7cm) LVDs 3.7 (2.5-4.0cm) LA (MM) (1.9-4.0cm) Aortic Cusp Exc 1.8 (1.5-2.0cm) EF (%) 45.0 (55-70%) Rt. Atrium 3.7 (1.9-4.0cm) Asc. Aorta cm IVSd 1.4 (0.7-1.1cm) RV (D) (1.8-2.4cm) PWd 1.6 (0.7-1.1cm) Mitral Valve Mitral Mitral Stenosis E wave 1.10m/s MV Mean GR. mmHg A wave 1.00m/s MV Peak GR. mmHg E/A ratio 1.1 2D MVA cm2 Aortic Valve Aortic Valve Aortic Stenosis V1 0.80m/s AO Mean GR. 3mmHg V2 1.20m/s AO Peak GR. 6mmHg LVOT Diameter 2.3 (1.8-2.4cm) Doppler SADA 2.77cm2 AI P 1/2 Time 755.02ms Pulmonic Valve V2 0.70m/s Tricuspid Valve TR Velocity 3.50m/s RVSP 55mmHg Other Information Quality : Technically Limited Rhythm : Conclusion LVEF mildly reduced at 40-45%, global hypokinesis. Moderate left ventricular hypertrophy Right ventricle size and function is normal Left atrium mildly dilated Moderate pulmonary hypertension, RSVP is 55-60mmgh
[2025-08-11 13:41] LABS: INR 1.12 (0.9-1.15); Prothrombin Time 11.7 sec (9.3-11.8)
[2025-08-11 13:44] LABS: Partial Thromboplastin Time 74.6 SEC (24.5-34.5)
[2025-08-11] MEDS: CAPSAICIN 0.025% CREAM 60GM TOP SCH (13:49)
[2025-08-11] MEDS ORDERED: PREGABALIN 25 MG CAP PO SCH (14:00)
--- NOTE | 2025-08-11 17:53 | DVHINCON2 ---
Date of service: Aug 11, [address] Hansen Reason for Consultation Acute kidney injury History of Present Illness Mrs. Wu is a 74-year-old female with known history of chronic kidney disease, baseline creatinine of around two approximately one year ago, with comorbidities that include diabetes, hypertension, coronary artery disease in her heart failure who presents for further evaluation and management of dyspnea. She has been diagnosed with an ST-elevation MN. She was seen in her room earlier this morning, she denied significant chest pain or breathing discomfort at that time. Serum creatinine was in the low four range at the time of admission as and has downtrended. reviewed outpatient medications do reveal therapy with MICHAEL inhibitor as an outpatient. Past Medical History Chronic kidney disease stage IIIB Diabetes Hypertension Coronary artery disease Current heart failure Allergies: Coded Allergies: NO KNOWN ALLERGIES (Unverified , 08/24/24) Home Meds Reported Medications Nifedipine (Nifedipine Er) 90 Mg Tab, 1 TAB PO DAILY for 30 Days, #30 08/11/25 Carvedilol (Carvedilol) 12.5 Mg Tab, 1 TAB PO BID for 30 Days, #60 08/11/25 Ferrous Sulfate (FERROUS SULFATE) 324 Mg Tab, 1 TAB PO TID for 60 Days, #180 08/11/25 Ezetimibe (Ezetimibe) 10 Mg Tab, 1 TAB PO DAILY for 100 Days, #100 08/11/25 Clopidogrel Bisulfate (CLOPIDOGREL) 75 Mg Tab, 1 TAB PO DAILY for 90 Days, #90 08/11/25 Polyethylene Glycol 3350 (Eq Laxative) 17 Gm Pow, POW PO UD for 28 Days, #476 08/11/25 Docusate Sodium (Docusate Sodium) 100 Mg Cap, 1 CAP PO DAILY for 30 Days, #30 08/11/25 Hydrochlorothiazide (Hydrochlorothiazide) 12.5 Mg Cap, 1 CAP PO TID, #30 CAP 5 Refills 08/11/25 Tizanidine Hydrochloride (Zanaflex) 4 Mg Cap, 1 CAP PO TID, #90 CAP 08/11/25 Isosorbide Mononitrate (Isosorbide Mononitrate Er) 30 Mg Tab, 1 TAB PO DAILY, #30 TAB 5 Refills 08/11/25 Furosemide (Furosemide) 40 Mg Tab, 40 MG PO DAILY for 30 Days 08/10/25 Glipizide (Glipizide) 10 Mg Tab, 1 TAB PO BID for 100 Days, #200 08/10/25 Acyclovir (Acyclovir) 400 Mg Tab, 1 TAB PO TID for 60 Days, #180 08/25/24 Aspirin (Aspirin Low Dose) 81 Mg Chw, 1 TAB PO DAILY for 30 Days, #30 08/25/24 Lidocaine (Lidocaine) 5 % Pad, 1 PATCH EX DAILY for 30 Days, #30 08/25/24 Rosuvastatin Calcium (Crestor) 10 Mg Tab, 1 TAB PO DAILY for 90 Days, #90 08/25/24 Enalapril Maleate (Enalapril Maleate) 20 Mg Tab, 1 TAB PO DAILY for 100 Days, #100 08/25/24 Pantoprazole Sodium Sesquihydr (Pantoprazole Sodium Dr) 40 Mg Tab, 20 MG PO DAILY for 30 Days, #30 08/25/24 Diclofenac Sodium (Topical) (Diclofenac Sodium) 1 % Gel, 2 APPLIC TD BID for 25 Days, #100 08/25/24 Gabapentin (Gabapentin) 800 Mg Tab, 1 TAB PO QID for 30 Days, #120 08/25/24 Hydrocodone-Acetaminophen (Hydrocodone Bitartrate/AC 10-325 mg) 1 Tab Tab, 1 TAB PO QID for 30 Days 08/24/24 Current Medications Current Medications Medications (Trade) Dose Ordered Sig/Drew Route PRN Reason Start Time Stop Time Status Last Admin Aspirin 81 mg DAILY PO 08/11/25 10:00 08/11/25 09:18 Acetaminophen/ Hydrocodone Bitart ([place] 10/325MG Tab) 1 tab Q6HP PO 08/10/25 18:00 Hold Gabapentin (Neurontin Capsule) 400 mg DAILY PO 08/11/25 10:00 Cancel Heparin Sodium/ Dextrose 250 ml @ 11 mls/hr [id number] IV 08/11/25 02:30 08/11/25 02:46 Enalapril Maleate (Vasotec Tablet) 20 mg DAILY PO 08/11/25 10:00 Gabapentin (Neurontin Capsule) 300 mg QID PO 08/11/25 06:00 UNV Gabapentin (Neurontin Capsule) 300 mg DAILY PO 08/11/25 10:00 08/11/25 09:17 Furosemide (Lasix Injection) 20 mg DAILY IV 08/11/25 10:00 08/11/25 10:47 Hydralazine HCl (Apresoline Tablet) 10 mg Q8HR PO 08/11/25 14:00 08/11/25 13:48 Isosorbide Dinitrate (Isordil Tablet) 10 mg TID@06,12,18 PO 08/11/25 12:00 08/11/25 17:12 Capsaicin (Zostrix Cream) 1 applic Q8HR TOP 08/11/25 14:00 Pregabalin (Lyrica Capsule) 25 mg TID PO 08/11/25 14:00 Hold Family History: Cerebrovascular accident (CVA) G8 BROTHER Diabetes mellitus G8 MOTHER G8 FATHER FH: dementia G8 BROTHER FH: ovarian cancer G8 SISTER Hypertension G8 MOTHER Malignant neoplasm of breast G8 SISTER Malignant neoplasm of ovary G8 SISTER Review of Systems As per history of present illness otherwise all systems are reviewed and are noncontributory. H&P Exam Vital Signs/I&O Vital Sign Date Time Temp Pulse Resp B/P (MAP) Pulse Ox O2 Delivery O2 Flow Rate FiO2 08/11/25 17:12 160/85 08/11/25 10:00 Room Air 08/11/25 09:00 97.8 70 18 94 97.8 08/11/25 08:10 2.0 08/11/25 08:10 28 Intake and Output 08/10/25 08/11/25 18:59 06:59 Intake Total 64.5 ml 645.5 ml Balance 64.5 ml 645.5 ml Intake Oral 600 ml IV Total 64.5 ml 45.5 ml # Voids 4 Physical Exam Gen: nad heent: nc/at, mmm lungs: cta anteriorly cvs: no rub abd: soft, bowel sounds audible ext: + edema skin: no rash neuro: alert Labs/Diagnostic Data Labs/Diagnostic Data Laboratory Tests Test 08/11/25 13:04 08/11/25 11:15 08/11/25 06:10 08/11/25 05:51 Range/Units Prothrombin Time 11.7 11.7 9.3-11.8 sec Prothrombin Time INR 1.12 1.12 0.9-1.15 Activated Partial Thromboplast Time 74.6 *H 60.1 H 24.5-34.5 SEC POC Glucose 176 H 75 70-106 mg/dl White Blood Count 7.4 # 4.4-10.8 10^3/uL Red Blood Count 3.39 L 4.0-5.20 10^6/uL Hemoglobin 8.2 L 12.2-16.2 g/dL Hematocrit 26.4 L 36.0-46.0 % Mean Corpuscular Volume 77.7 L 80.0-100.0 fL Mean Corpuscular Hemoglobin 24.2 L 28.0-32.0 pg Mean Corpuscular Hemoglobin Concent 31.1 L 32.0-36.0 g/dL Red Cell Distribution Width 15.2 H 11.8-14.3 % Platelet Count 222 140-450 10^3/uL Mean Platelet Volume 8.2 6.9-10.8 fL Neutrophils (%) (Auto) 72.4 37.0-80.0 % Lymphocytes (%) (Auto) 11.8 10.0-50.0 % Monocytes (%) (Auto) 9.2 0.0-12.0 % Eosinophils (%) (Auto) 5.6 0.0-7.0 % Basophils (%) (Auto) 1.0 0.0-2.0 % Neutrophils # (Auto) 5.4 1.6-8.6 10 ^3/uL Lymphocytes # (Auto) 0.9 0.4-5.4 10 ^3/uL Monocytes # (Auto) 0.7 0-1.3 10 ^3/uL Eosinophils # (Auto) 0.4 0-0.8 10 ^3/uL Basophils # (Auto) 0.1 0-0.2 10 ^3/uL Nucleated Red Blood Cells 3.2 % Sodium Level 143 136-145 mmol/L Potassium Level 3.8 3.5-5.1 mmol/L Chloride Level 108 H 98-107 mmol/L Carbon Dioxide Level 20 20-31 mmol/L Anion Gap 15 5-15 Blood Urea Nitrogen 56 H 9-23 mg/dL Creatinine 3.00 H 0.550-1.02 mg/dL Glomerular Filtration Rate Calc 16 >90 mL/min BUN/Creatinine Ratio 18.7 10.0-20.0 Serum Glucose 85 74-106 mg/dL Calcium Level 8.7 8.7-10.4 mg/dL Hepatitis B Surface Antigen Negative Negative Hepatitis C Antibody Negative Negative Test 08/11/25 00:23 08/10/25 22:59 08/10/25 17:51 08/10/25 17:15 Range/Units Prothrombin Time 11.9 H 12.0 H 9.3-11.8 sec Prothrombin Time INR 1.14 1.15 0.9-1.15 Activated Partial Thromboplast Time 74.3 *H 49.6 H 24.5-34.5 SEC POC Glucose 142 H 183 H 70-106 mg/dl Test 08/10/25 14:45 08/10/25 13:10 08/10/25 13:06 08/10/25 09:48 Range/Units POC Glucose 88 70-106 mg/dl Blood Gas Specimen Type Arterial Blood Gas Sample Site Right radial Blood Gas Patient Temperature 37.0 Arterial Blood Date Drawn [id number] Arterial Blood pH 7.378 7.350-7.450 Arterial Blood Partial Pressure CO2 28.5 L 32.0-45.0 mmHg Arterial Blood Partial Pressure O2 73.6 L 83.0-108.0 mmHg Arterial Blood HCO3 16.4 L 21.0-28.0 mmol/L Arterial Blood Oxygen Saturation 93.4 L 94.0-98.0 % Arterial Blood Base Excess -7.8 L -2.0-3.0 mmol/L Arterial Blood Oxyhemoglobin 91.7 L 94.0-98.0 % Arterial Blood Carboxyhemoglobin 0.8 0.5-1.5 % Arterial Blood Methemoglobin 1.0 0.0-1.5 % Arterial Blood Deoxyhemoglobin 6.5 H 0.0-5.0 % Chaitanya Test Positive Blood Gas Total Hemoglobin 8.60 L 12.0-16.0 g/dL Blood Gas Liter Flow 2.00 Blood Gas Modality Nasal cannula FiO2 % 28.0 SARS-CoV-2 Antigen (Rapid) Negative NEGATIVE Prothrombin Time 12.9 H 9.3-11.8 sec Prothrombin Time INR 1.24 H 0.9-1.15 Activated Partial Thromboplast Time 45.5 H 24.5-34.5 SEC Test 08/10/25 07:57 08/10/25 06:42 08/10/25 02:34 08/09/25 22:10 Range/Units Urine Color Light-yellow Yellow Urine Clarity Clear Clear Urine pH 5.5 5.0-9.0 Urine Specific [place] 1.016 1.001-1.035 Urine Protein 1+ H Negative Urine Ketones Negative Negative Urine Blood Trace H Negative /uL Urine Nitrite Negative Negative Urine Bilirubin Negative Negative Urine Urobilinogen Normal Negative mg/dL Urine Leukocyte Esterase Negative Negative /uL Urine RBC 3 0 - 4 /hpf Urine Microscopic WBC 2 0-5 /HPF Urine Squamous Epithelial Cells Few <5 /hpf Urine Bacteria None seen None Seen /hpf Urine Creatinine 120.60 30.0-125.0 mg/dL Urine Sodium 37 L 40-220 mmol/L Urine Glucose Normal Normal mg/dL Urine Total Protein 117.1 H 1-14 mg/dL POC Glucose 91 181 H 70-106 mg/dl White Blood Count 11.6 #H 4.4-10.8 10^3/uL Red Blood Count 3.22 L 4.0-5.20 10^6/uL Hemoglobin 7.7 L 12.2-16.2 g/dL Hematocrit 25.4 L 36.0-46.0 % Mean Corpuscular Volume 78.9 L 80.0-100.0 fL Mean Corpuscular Hemoglobin 24.0 L 28.0-32.0 pg Mean Corpuscular Hemoglobin Concent 30.4 L 32.0-36.0 g/dL Red Cell Distribution Width 15.3 H 11.8-14.3 % Platelet Count 197 140-450 10^3/uL Mean Platelet Volume 8.2 6.9-10.8 fL Neutrophils (%) (Auto) 82.6 H 37.0-80.0 % Lymphocytes (%) (Auto) 8.8 L 10.0-50.0 % Monocytes (%) (Auto) 7.0 0.0-12.0 % Eosinophils (%) (Auto) 0.9 0.0-7.0 % Basophils (%) (Auto) 0.7 0.0-2.0 % Neutrophils # (Auto) 9.6 H 1.6-8.6 10 ^3/uL Lymphocytes # (Auto) 1.0 0.4-5.4 10 ^3/uL Monocytes # (Auto) 0.8 0-1.3 10 ^3/uL Eosinophils # (Auto) 0.1 0-0.8 10 ^3/uL Basophils # (Auto) 0.1 0-0.2 10 ^3/uL Nucleated Red Blood Cells 1.5 % Prothrombin Time 14.5 H 9.3-11.8 sec Prothrombin Time INR 1.42 H 0.9-1.15 Activated Partial Thromboplast Time 107.7 *H 24.5-34.5 SEC Sodium Level 143 136-145 mmol/L Potassium Level 4.3 3.5-5.1 mmol/L Chloride Level 111 H 98-107 mmol/L Carbon Dioxide Level 19 L 20-31 mmol/L Anion Gap 13 5-15 Blood Urea Nitrogen 65 H 9-23 mg/dL Creatinine 4.18 H 0.550-1.02 mg/dL Glomerular Filtration Rate Calc 10 >90 mL/min BUN/Creatinine Ratio 15.6 10.0-20.0 Serum Glucose 171 H 74-106 mg/dL Calcium Level 8.0 L 8.7-10.4 mg/dL Total Bilirubin 0.2 0.2-1.0 mg/dL Aspartate Amino Transferase (AST) 151 H 13-40 U/L Alanine Aminotransferase (ALT) 146 H 7-40 U/L Alkaline Phosphatase 128 H 46-116 U/L Total Protein 6.1 5.7-8.2 g/dL Albumin 3.7 3.2-4.8 g/dL Test 08/09/25 21:05 08/09/25 19:44 08/09/25 18:55 08/09/25 17:08 Range/Units D-Dimer, Quantitative 12.00 H 0.0-0.49 mg/L FEU Troponin I High Sensitivity 7038 *H 7263 *H 7416 *H </=34 ng/L Lactic Acid Level 2.1 *H 5.5 *H 0.4-2.0 mmol/L Iron Level 52 50-170 ug/dL Total Iron Binding Capacity 196 L 250-425 ug/dL Percent Iron Saturation 26.5 15-50 % White Blood Count 8.6 4.4-10.8 10^3/uL Red Blood Count 3.17 L 4.0-5.20 10^6/uL Hemoglobin 7.8 L 12.2-16.2 g/dL Hematocrit 25.3 L 36.0-46.0 % Mean Corpuscular Volume 79.8 L 80.0-100.0 fL Mean Corpuscular Hemoglobin 24.5 L 28.0-32.0 pg Mean Corpuscular Hemoglobin Concent 30.7 L 32.0-36.0 g/dL Red Cell Distribution Width 15.6 H 11.8-14.3 % Platelet Count 186 140-450 10^3/uL Mean Platelet Volume 7.8 6.9-10.8 fL Neutrophils (%) (Auto) 84.9 H 37.0-80.0 % Lymphocytes (%) (Auto) 8.9 L 10.0-50.0 % Monocytes (%) (Auto) 5.7 0.0-12.0 % Eosinophils (%) (Auto) 0.2 0.0-7.0 % Basophils (%) (Auto) 0.3 0.0-2.0 % Neutrophils # (Auto) 7.3 1.6-8.6 10 ^3/uL Lymphocytes # (Auto) 0.8 0.4-5.4 10 ^3/uL Monocytes # (Auto) 0.5 0-1.3 10 ^3/uL Eosinophils # (Auto) 0 0-0.8 10 ^3/uL Basophils # (Auto) 0 0-0.2 10 ^3/uL Nucleated Red Blood Cells 3.0 % Prothrombin Time 14.0 H 9.3-11.8 sec Prothrombin Time INR 1.36 H 0.9-1.15 Activated Partial Thromboplast Time 28.0 24.5-34.5 SEC Sodium Level 143 136-145 mmol/L Potassium Level 5.0 3.5-5.1 mmol/L Chloride Level 110 H 98-107 mmol/L Carbon Dioxide Level 16 L 20-31 mmol/L Anion Gap 17 H 5-15 Blood Urea Nitrogen 64 H 9-23 mg/dL Creatinine 4.29 H 0.550-1.02 mg/dL Glomerular Filtration Rate Calc 10 >90 mL/min BUN/Creatinine Ratio 14.9 10.0-20.0 Serum Glucose 158 H 74-106 mg/dL Calcium Level 8.5 L 8.7-10.4 mg/dL Total Bilirubin 0.3 0.2-1.0 mg/dL Aspartate Amino Transferase (AST) 178 H 13-40 U/L Alanine Aminotransferase (ALT) 153 H 7-40 U/L Alkaline Phosphatase 139 H 46-116 U/L B-Type Natriuretic Peptide 608.01 0-100 pg/mL Total Protein 6.4 5.7-8.2 g/dL Albumin 3.7 3.2-4.8 g/dL Assessment IMP: 1) Hemodynamically mediated acute kidney injury and vasomotor nephropathy 2) CKD stage IIIB possibly secondary to underlying diabetic kidney disease, hypertensive nephrosclerosis 3) NSTEMI 4) Possible bacterial pneumonia 5) HFrEF REC: - Mrs. Wu has robust hemodynamics currently, agree with continued use of loop diuretic To achieve desired ECF volume. Her other metabolic parameters are within acceptable limits. UA with a proximally 1 g proteinuria. Can rechallenge with Michael I as an outpatient. Will Continue to follow during current hospitalization. Plan discussed with: Other LIOR WALDROP MD Aug 11, 2025 17:53
--- NOTE | 2025-08-11 20:54 | DVHPN2 ---
Progress Note - Dictate Date Seen: Aug 11, 2025 Medical Necessity Reason Pt with a Central, PICC or Fol: No Subjective Patient was seen and evaluated in follow up. Patient is complaining of SOB. Patient is now on 2 LPM NC. 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 Telemetry reviewed. vital signs Vital Sign Date Time Temp Pulse Resp B/P (MAP) Pulse Ox O2 Delivery O2 Flow Rate FiO2 08/11/25 11:27 166/78 08/11/25 10:00 Room Air 08/11/25 09:00 97.8 70 18 94 97.8 08/11/25 08:10 2.0 08/11/25 08:10 28 Total Intake and Output 08/10/25 08/10/25 08/11/25 15:00 23:00 07:00 Intake Total 110.0 ml 600 ml Balance 110.0 ml 600 ml medications Current Medications Medications Dose Ordered Sig/Drew Route Start Time Stop Time Status Last Admin Dose Admin Cefepime HCl 50 ml @ 12.5 mls/hr DAILY IV 08/10/25 10:00 08/11/25 09:19 12.5 MLS/HR Clopidogrel Bisulfate 75 mg DAILY PO 08/10/25 10:00 08/11/25 09:19 75 MG Atorvastatin Calcium 40 mg HS PO 08/09/25 22:00 08/10/25 23:10 40 MG Ferrous Sulfate 325 mg BIDWM PO 08/10/25 08:00 08/11/25 09:18 325 MG Diagnostic Test (Pha) 1 strip ACHS 08/09/25 22:00 08/11/25 11:16 1 STRIP Insulin Human Regular ACHS SC 08/09/25 22:00 08/11/25 11:25 3 UNITS Dextrose 50 ml UD PRN IV 08/09/25 19:00 Ondansetron HCl 4 mg Q4HP PRN IV 08/09/25 19:00 Hold Nitroglycerin 0.4 mg Q5MINP PRN SL 08/09/25 19:00 Morphine Sulfate 2 mg Q30M PRN IV 08/09/25 19:00 08/10/25 08:10 2 MG Albuterol 2.5 mg Q6HPRN PRN NEB 08/09/25 19:00 Acetaminophen/ Hydrocodone Bitart 1 tab Q6HP PRN PO 08/10/25 11:30 08/11/25 05:46 1 TAB Aspirin 81 mg DAILY PO 08/11/25 10:00 08/11/25 09:18 81 MG Acetaminophen 650 mg Q6HP PRN PO 08/10/25 13:15 Acetaminophen/ Hydrocodone Bitart 1 tab Q6HP PO 08/10/25 18:00 Hold Gabapentin 400 mg DAILY PO 08/11/25 10:00 Cancel Heparin Sodium/ Dextrose 250 ml @ 11 mls/hr [id number] IV 08/11/25 02:30 08/11/25 02:46 11 MLS/HR Enalapril Maleate 20 mg DAILY PO 08/11/25 10:00 Gabapentin 300 mg QID PO 08/11/25 06:00 UNV Gabapentin 300 mg DAILY PO 08/11/25 10:00 08/11/25 09:17 300 MG Furosemide 20 mg DAILY IV 08/11/25 10:00 08/11/25 10:47 20 MG Hydralazine HCl 10 mg Q8HR PO 08/11/25 14:00 Isosorbide Dinitrate 10 mg TID@06,12,18 PO 08/11/25 12:00 08/11/25 11:27 10 MG Capsaicin 1 applic Q8HR TOP 08/11/25 14:00 UNV Pregabalin 25 mg TID PO 08/11/25 14:00 UNV objective GENERAL: Alert and oriented x 3. No acute distress. EYES: PERRL, EOMI. Anicteric. HENT: Moist mucous membranes. LUNGS: Clear to auscultation bilaterally. CARDIOVASCULAR: Regular rate and rhythm. ABDOMEN: Soft, nontender and nondistended. EXTREMITIES: No edema. NEUROLOGIC: No focal neurological deficits. SKIN: Warm, dry. laboratory and microbiology Laboratory Tests 08/11/25 06:10 Test 08/11/25 06:10 Range/Units Serum Glucose 85 74-106 mg/dL Problem List Hypotension. NSTEMI (non-ST elevated myocardial infarction). DM. HLD. Assessment/Plan Continued all current supportive medical care. Echocardiogram. Morphine and [place] for pain management. Aspirin, Lipitor, Plavix. Hydralazine. Heparin drip per protocol. Nitro SL. Additional plan as per the hospital course. Plan discussed with: Patient JENAE ROBERTS MD Aug 11, 2025 12:13
[2025-08-12] VITALS (10 sets, daily range): BP systolic 133–163; BP diastolic 65–84; PULSE 56–87; RESP 16–20; TEMP 36.8; O2SAT 92–100
[2025-08-12 07:11] LABS: Hematocrit 26.1 % (36.0-46.0); Hemoglobin 8.3 g/dL (12.2-16.2); Mean Corpuscular Hemoglobin 24.6 pg (28.0-32.0); Mean Corpuscular Volume 77.9 fL (80.0-100.0); Nucleated Red Blood Cells % 1.2 %
[2025-08-12 07:12] LABS: Anion Gap 12 (5-15); Carbon Dioxide 20 mmol/L (20-31); Potassium 4.0 mmol/L (3.5-5.1); Sodium 142 mmol/L (136-145)
[2025-08-12 07:13] LABS: Calcium 9.0 mg/dL (8.7-10.4)
[2025-08-12 07:18] LABS: BUN/Creatinine Ratio 11.3 (10.0-20.0); Glucose 92 mg/dL (74-106); INR 1.08 (0.9-1.15); Partial Thromboplastin Time 28.2 SEC (24.5-34.5); Prothrombin Time 11.4 sec (9.3-11.8)
[2025-08-12 07:23] LABS: Blood Urea Nitrogen 32 mg/dL (9-23); Chloride 110 mmol/L (98-107)
--- NOTE | 2025-08-12 08:22 | CONS ---
Pharmacy Clinical Information: HEPARIN RATE SET @11 ML/HR @0730 AND APTT = 28.2 @0553 ON 08/12 (FALSE READING SINCE RATE WAS SET WRONG OVERNIGHT @.11 ML/HR). NEXT APTT MARIO @1330 08/12 PER RX PROTOCOL KAR MAR WAS THE ONE TO DISCOVER INCORRECT RATE SET AT 0.11M/HR AND READJUSTED THE DRIP. SHE'S AWARE WE WILL CONTINUE THE SAME RATE @11/ML AND FOLLOW UP WITH APTT @1330 08/12 GABBY CALLAHAN PHARMACIST Aug 12, 2025 08:22
[2025-08-12] MEDS: ALBUTEROL SULF 2.5 MG/0.5ML(0.5%) NEB SOLN NEB PRN (10:12)
[2025-08-12] MEDS: ISOSORBIDE DINITRATE 10 MG TAB PO SCH (12:05)
[2025-08-12] MEDS ORDERED: PREG50CA PO (13:01)
[2025-08-12] MEDS ORDERED: CLOP75TA70 PO (13:01)
[2025-08-12] MEDS ORDERED: ATOR40TA52 PO (13:01)
[2025-08-12] MEDS ORDERED: HYDR-2792 PO (13:01)
[2025-08-12] MEDS ORDERED: ASPI-325 PO (13:01)
[2025-08-12] MEDS ORDERED: ISOS10TA2 PO (13:01)
[2025-08-12] MEDS ORDERED: LEVO500T91 PO (13:03)
--- NOTE | 2025-08-12 13:11 | DVHDS2 ---
Discharge Summary Date of Admission Aug 09, 2025 at 19:00 Date of Discharge: Aug 12, 2025 Labs/Diagnostic Data: Laboratory Results Test 08/12/25 11:36 08/12/25 05:53 08/11/25 06:10 08/10/25 13:10 POC Glucose 254 mg/dl (70-106) White Blood Count 5.8 10^3/uL (4.4-10.8) Red Blood Count 3.35 10^6/uL (4.0-5.20) Hemoglobin 8.3 g/dL (12.2-16.2) Hematocrit 26.1 % (36.0-46.0) Mean Corpuscular Volume 77.9 fL (80.0-100.0) Mean Corpuscular Hemoglobin 24.6 pg (28.0-32.0) Mean Corpuscular Hemoglobin Concent 31.6 g/dL (32.0-36.0) Red Cell Distribution Width 15.2 % (11.8-14.3) Platelet Count 203 10^3/uL (140-450) Mean Platelet Volume 8.2 fL (6.9-10.8) Neutrophils (%) (Auto) 69.0 % (37.0-80.0) Lymphocytes (%) (Auto) 12.8 % (10.0-50.0) Monocytes (%) (Auto) 10.4 % (0.0-12.0) Eosinophils (%) (Auto) 6.3 % (0.0-7.0) Basophils (%) (Auto) 1.5 % (0.0-2.0) Neutrophils # (Auto) 4.0 10 ^3/uL (1.6-8.6) Lymphocytes # (Auto) 0.7 10 ^3/uL (0.4-5.4) Monocytes # (Auto) 0.6 10 ^3/uL (0-1.3) Eosinophils # (Auto) 0.4 10 ^3/uL (0-0.8) Basophils # (Auto) 0.1 10 ^3/uL (0-0.2) Nucleated Red Blood Cells 1.2 % Prothrombin Time 11.4 sec (9.3-11.8) Prothrombin Time INR 1.08 (0.9-1.15) Activated Partial Thromboplast Time 28.2 SEC (24.5-34.5) Sodium Level 142 mmol/L (136-145) Potassium Level 4.0 mmol/L (3.5-5.1) Chloride Level 110 mmol/L (98-107) Carbon Dioxide Level 20 mmol/L (20-31) Anion Gap 12 (5-15) Blood Urea Nitrogen 32 mg/dL (9-23) Creatinine 2.83 mg/dL (0.550-1.02) Glomerular Filtration Rate Calc 17 mL/min (>90) BUN/Creatinine Ratio 11.3 (10.0-20.0) Serum Glucose 92 mg/dL (74-106) Calcium Level 9.0 mg/dL (8.7-10.4) Hepatitis B Surface Antigen Negative (Negative) Hepatitis C Antibody Negative (Negative) Blood Gas Specimen Type Arterial Blood Gas Sample Site Right radial Blood Gas Patient Temperature 37.0 Arterial Blood Date Drawn [id number] Arterial Blood pH 7.378 (7.350-7.450) Arterial Blood Partial Pressure CO2 28.5 mmHg (32.0-45.0) Arterial Blood Partial Pressure O2 73.6 mmHg (83.0-108.0) Arterial Blood HCO3 16.4 mmol/L (21.0-28.0) Arterial Blood Oxygen Saturation 93.4 % (94.0-98.0) Arterial Blood Base Excess -7.8 mmol/L (-2.0-3.0) Arterial Blood Oxyhemoglobin 91.7 % (94.0-98.0) Arterial Blood Carboxyhemoglobin 0.8 % (0.5-1.5) Arterial Blood Methemoglobin 1.0 % (0.0-1.5) Arterial Blood Deoxyhemoglobin 6.5 % (0.0-5.0) Chaitanya Test Positive Blood Gas Total Hemoglobin 8.60 g/dL (12.0-16.0) Blood Gas Liter Flow 2.00 Blood Gas Modality Nasal cannula FiO2 % 28.0 Test 08/10/25 13:06 08/10/25 07:57 08/10/25 02:34 08/09/25 21:05 SARS-CoV-2 Antigen (Rapid) Negative (NEGATIVE) Urine Color Light-yellow (Yellow) Urine Clarity Clear (Clear) Urine pH 5.5 (5.0-9.0) Urine Specific [place] 1.016 (1.001-1.035) Urine Protein 1+ (Negative) Urine Ketones Negative (Negative) Urine Blood Trace /uL (Negative) Urine Nitrite Negative (Negative) Urine Bilirubin Negative (Negative) Urine Urobilinogen Normal mg/dL (Negative) Urine Leukocyte Esterase Negative /uL (Negative) Urine RBC 3 /hpf (0 - 4) Urine Microscopic WBC 2 /HPF (0-5) Urine Squamous Epithelial Cells Few /hpf (<5) Urine Bacteria None seen /hpf (None Seen) Urine Creatinine 120.60 mg/dL (30.0-125.0) Urine Sodium 37 mmol/L (40-220) Urine Glucose Normal mg/dL (Normal) Urine Total Protein 117.1 mg/dL (1-14) Total Bilirubin 0.2 mg/dL (0.2-1.0) Aspartate Amino Transferase (AST) 151 U/L (13-40) Alanine Aminotransferase (ALT) 146 U/L (7-40) Alkaline Phosphatase 128 U/L (46-116) Total Protein 6.1 g/dL (5.7-8.2) Albumin 3.7 g/dL (3.2-4.8) D-Dimer, Quantitative 12.00 mg/L FEU (0.0-0.49) Troponin I High Sensitivity 7038 ng/L (</=34) Test 08/09/25 19:44 08/09/25 18:55 08/09/25 17:08 Lactic Acid Level 2.1 mmol/L (0.4-2.0) Iron Level 52 ug/dL (50-170) Total Iron Binding Capacity 196 ug/dL (250-425) Percent Iron Saturation 26.5 % (15-50) B-Type Natriuretic Peptide 608.01 pg/mL (0-100) Other Laboratory Tests 08/12/25 05:53 Brief Hx & Hospital Course: 74 F with CKD4, chronic pain, admitted for SOB w/ cough. In ED found to have elevated trop, hypoxic. started on abx, o2 supp on simple mask, cardio consulted, started on heparin drip. 08/10 pending echo, breathing improved, transition to NC. send covid flu 08/11 on heparin drip, improved, explain abt cannot give jordan 3.2g daily iso CKD. cr improved. c/w heparin 48 hours total. echo pending 08/12 heparin drip off, off o2, chad improved. asymptomatic, educated on dapt, and lifestyle changes. f/u w pcp. dc with isosorbide, hydral, dapt. dc gabapentin due to ckd, switch to lyrica, f/u w pain mgmt Condition at Discharge: Stable Final Diagnosis/Problems List NSTEMI type 1 cardiogenic shock rule out PE acute hypoxic RF PNA gp vs gn transaminitis CHAD on CKD 4 metabolic acidosis acute systolic HF? MR? TR? dilated bile duct s/p cholecystectomy? vs BD disease chronic pain DM HTN obesity Discharge Disposition: Home Discharge Instruct/Medications Diet: Consistent carbohydrate, Cardiac 2g Na,low cholest, Renal Activity: No Restrictions, As Tolerated Medications: isosorbide dinitrate hydralazine asa plavix Scheduled Acyclovir (Acyclovir), 1 TAB PO TID, (Reported) Aspirin (Aspirin Low Dose), 1 TAB PO DAILY, (Reported) Aspirin (Aspirin Low Dose), 81 MG PO DAILY Atorvastatin Calcium (Atorvastatin Calcium), 1 TAB PO DAILY Carvedilol (Carvedilol), 1 TAB PO BID, (Reported) Clopidogrel Bisulfate (Clopidogrel), 1 TAB PO DAILY, (Reported) Clopidogrel Bisulfate (Clopidogrel), 75 MG PO DAILY Diclofenac Sodium (Topical) (Diclofenac Sodium), 2 APPLIC TD BID, (Reported) Docusate Sodium (Docusate Sodium), 1 CAP PO DAILY, (Reported) Enalapril Maleate (Enalapril Maleate), 1 TAB PO DAILY, (Reported) Ezetimibe (Ezetimibe), 1 TAB PO DAILY, (Reported) Ferrous Sulfate (Ferrous Sulfate), 1 TAB PO TID, (Reported) Furosemide (Furosemide), 40 MG PO DAILY, (Reported) Gabapentin (Gabapentin), 1 TAB PO QID, (Reported) Glipizide (Glipizide), 1 TAB PO BID, (Reported) Hydralazine Hcl (Hydralazine Hcl), 20 MG PO Q8HR Hydrochlorothiazide (Hydrochlorothiazide), 1 CAP PO TID, (Reported) Hydrocodone-Acetaminophen (Hydrocodone Bitartrate/AC 10-325 mg), 1 TAB PO QID, (Reported) Isosorbide Dinitrate (Isosorbide Dinitrate), 20 MG PO TID@06,12,18 Isosorbide Mononitrate (Isosorbide Mononitrate Er), 1 TAB PO DAILY, (Reported) Levofloxacin Hemihydrate (Levofloxacin), 1 TAB PO DAILY Lidocaine (Lidocaine), 1 PATCH EX DAILY, (Reported) Nifedipine (Nifedipine Er), 1 TAB PO DAILY, (Reported) Pantoprazole Sodium Sesquihydr (Pantoprazole Sodium Dr), 20 MG PO DAILY, (Reported) Polyethylene Glycol 3350 (Eq Laxative), POW PO UD, (Reported) Pregabalin (Lyrica), 1 CAP PO BID, (Reported) Rosuvastatin Calcium (Crestor), 1 TAB PO DAILY, (Reported) Tizanidine Hydrochloride (Zanaflex), 1 CAP PO TID, (Reported) Discharge Statement: "Patient was advised to return to the ER or call 911 if any headaches, dizziness, shortness of breath, chest pain, abdominal pain, bleeding, fevers, or worsening of medical condition. Patient was counseled about treatment plan, medications, possible side effects, patientverbalized understanding. All questions were answered to the best of my ability. This discharge took greater then 30 minutes in planning, reviewing documentation, counseling the patient, and discussing with other team members." ASSESSMENT ASSESSMENT Assessment nstemi htn chad vmn on ckd Date of Service: Aug 12, 2025 Billing Provider: VY GARNER MD Common Visit Codes: 14019-HZK/OBS DISCH DAY >30min VY GARNER MD Aug 12, 2025 13:11
--- NOTE | 2025-08-12 14:20 | DVHPN2 ---
Progress Note Date Seen: Aug 12, 2025 Medical Necessity Reason Pt with a Central, PICC or Fol: No Subjective Patient reports: No new complaints Objective vital signs Vital Sign Date Time Temp Pulse Resp B/P (MAP) Pulse Ox O2 Delivery O2 Flow Rate FiO2 08/12/25 13:49 36.8 18 08/12/25 13:00 74 141/65 (90) 97 08/12/25 10:12 Room Air 0.0 08/12/25 10:12 21 Total Intake and Output 08/11/25 08/11/25 08/12/25 15:00 23:00 07:00 Intake Total 650 ml 450 ml Balance 650 ml 450 ml medications Current Medications Medications Dose Ordered Sig/Drew Route Start Time Stop Time Status Last Admin Dose Admin Cefepime HCl 50 ml @ 12.5 mls/hr DAILY IV 08/10/25 10:00 08/12/25 08:34 12.5 MLS/HR Clopidogrel Bisulfate 75 mg DAILY PO 08/10/25 10:00 08/12/25 08:32 75 MG Atorvastatin Calcium 40 mg HS PO 08/09/25 22:00 08/11/25 21:45 40 MG Ferrous Sulfate 325 mg BIDWM PO 08/10/25 08:00 08/12/25 08:33 325 MG Diagnostic Test (Pha) 1 strip ACHS 08/09/25 22:00 08/12/25 11:34 1 STRIP Insulin Human Regular ACHS SC 08/09/25 22:00 08/12/25 12:04 6 UNITS Dextrose 50 ml UD PRN IV 08/09/25 19:00 Ondansetron HCl 4 mg Q4HP PRN IV 08/09/25 19:00 Hold Nitroglycerin 0.4 mg Q5MINP PRN SL 08/09/25 19:00 Morphine Sulfate 2 mg Q30M PRN IV 08/09/25 19:00 08/10/25 08:10 2 MG Albuterol 2.5 mg Q6HPRN PRN NEB 08/09/25 19:00 08/12/25 10:12 2.5 MG Acetaminophen/ Hydrocodone Bitart 1 tab Q6HP PRN PO 08/10/25 11:30 08/12/25 08:48 1 TAB Aspirin 81 mg DAILY PO 08/11/25 10:00 08/12/25 08:32 81 MG Acetaminophen 650 mg Q6HP PRN PO 08/10/25 13:15 Acetaminophen/ Hydrocodone Bitart 1 tab Q6HP PO 08/10/25 18:00 Hold Gabapentin 400 mg DAILY PO 08/11/25 10:00 Cancel Enalapril Maleate 20 mg DAILY PO 08/11/25 10:00 08/12/25 08:31 20 MG Gabapentin 300 mg QID PO 08/11/25 06:00 UNV Gabapentin 300 mg DAILY PO 08/11/25 10:00 08/12/25 08:33 300 MG Furosemide 20 mg DAILY IV 08/11/25 10:00 08/12/25 08:34 20 MG Capsaicin 1 applic Q8HR TOP 08/11/25 14:00 Pregabalin 25 mg TID PO 08/11/25 14:00 Hold Hydralazine HCl 20 mg Q8HR PO 08/12/25 14:00 Isosorbide Dinitrate 20 mg TID@06,12,18 PO 08/12/25 12:00 08/12/25 12:05 20 MG Examination Gen:Appears stated age, NAD Lungs: Bilateral air entry, no rales Heart: RRR, normal S1 and S2 Ext: No edema Neuro: Alert and oriented x 4 laboratory and microbiology Laboratory Tests 08/12/25 05:53 Test 08/12/25 05:53 Range/Units Serum Glucose 92 74-106 mg/dL Microbiology Date/Time Source Procedure Growth Status 08/11/25 17:30 Nose MRSA Screen - Final Complete 08/09/25 17:08 Blood Blood Culture - Preliminary NO GROWTH AFTER 48 HOURS OF INCUBATION. Resulted Labs and/or images reviewed: Labs reviewed by me Problem List/Assessment/Plan Problem List/Assessment/Plan IMP: 1) Hemodynamically mediated acute kidney injury and vasomotor nephropathy 2) CKD stage IIIB possibly secondary to underlying diabetic kidney disease, hypertensive nephrosclerosis 3) NSTEMI 4) Possible bacterial pneumonia 5) HFrEF REC: - Strict I&Os - Blood pressure control - Avoidance of NSAIDs - Avoidance of ACEIs and contrast studies during time course of CHAD - Follow up outpt within 1-2 weeks Plan discussed with: Patient BRIANA BELTRE RADIO ARTIST Aug 12, 2025 14:20
--- NOTE | 2025-08-12 22:18 | DVHPN2 ---
Progress Note - Dictate Date Seen: Aug 12, 2025 Medical Necessity Reason Pt with a Central, PICC or Fol: No Subjective Patient was seen and evaluated in follow up. No overnight events. HGB 8.3, HCT 26.1, CL 110, BUN 32, FINANCE CONSULTANT 2.83, GLUC 254. Echo shows LVEF mildly reduced at 40- 45%. Telemetry reviewed. vital signs Vital Sign Date Time Temp Pulse Resp B/P (MAP) Pulse Ox O2 Delivery O2 Flow Rate FiO2 08/12/25 12:05 141/65 08/12/25 10:20 81 20 100 08/12/25 10:12 Room Air 0.0 08/12/25 10:12 21 08/12/25 09:00 98.2 98.2 Total Intake and Output 08/11/25 08/11/25 08/12/25 15:00 23:00 07:00 Intake Total 650 ml 450 ml Balance 650 ml 450 ml medications Current Medications Medications Dose Ordered Sig/Drew Route Start Time Stop Time Status Last Admin Dose Admin Cefepime HCl 50 ml @ 12.5 mls/hr DAILY IV 08/10/25 10:00 08/12/25 08:34 12.5 MLS/HR Clopidogrel Bisulfate 75 mg DAILY PO 08/10/25 10:00 08/12/25 08:32 75 MG Atorvastatin Calcium 40 mg HS PO 08/09/25 22:00 08/11/25 21:45 40 MG Ferrous Sulfate 325 mg BIDWM PO 08/10/25 08:00 08/12/25 08:33 325 MG Diagnostic Test (Pha) 1 strip ACHS 08/09/25 22:00 08/12/25 11:34 1 STRIP Insulin Human Regular ACHS SC 08/09/25 22:00 08/12/25 12:04 6 UNITS Dextrose 50 ml UD PRN IV 08/09/25 19:00 Ondansetron HCl 4 mg Q4HP PRN IV 08/09/25 19:00 Hold Nitroglycerin 0.4 mg Q5MINP PRN SL 08/09/25 19:00 Morphine Sulfate 2 mg Q30M PRN IV 08/09/25 19:00 08/10/25 08:10 2 MG Albuterol 2.5 mg Q6HPRN PRN NEB 08/09/25 19:00 08/12/25 10:12 2.5 MG Acetaminophen/ Hydrocodone Bitart 1 tab Q6HP PRN PO 08/10/25 11:30 08/12/25 08:48 1 TAB Aspirin 81 mg DAILY PO 08/11/25 10:00 08/12/25 08:32 81 MG Acetaminophen 650 mg Q6HP PRN PO 08/10/25 13:15 Acetaminophen/ Hydrocodone Bitart 1 tab Q6HP PO 08/10/25 18:00 Hold Gabapentin 400 mg DAILY PO 08/11/25 10:00 Cancel Enalapril Maleate 20 mg DAILY PO 08/11/25 10:00 08/12/25 08:31 20 MG Gabapentin 300 mg QID PO 08/11/25 06:00 UNV Gabapentin 300 mg DAILY PO 08/11/25 10:00 08/12/25 08:33 300 MG Furosemide 20 mg DAILY IV 08/11/25 10:00 08/12/25 08:34 20 MG Capsaicin 1 applic Q8HR TOP 08/11/25 14:00 Pregabalin 25 mg TID PO 08/11/25 14:00 Hold Hydralazine HCl 20 mg Q8HR PO 08/12/25 14:00 Isosorbide Dinitrate 20 mg TID@06,12,18 PO 08/12/25 12:00 08/12/25 12:05 20 MG objective GENERAL: Alert and oriented x 3. No acute distress. EYES: PERRL, EOMI. Anicteric. HENT: Moist mucous membranes. LUNGS: Clear to auscultation bilaterally. CARDIOVASCULAR: Regular rate and rhythm. ABDOMEN: Soft, nontender and nondistended. EXTREMITIES: No edema. NEUROLOGIC: No focal neurological deficits. SKIN: Warm, dry. laboratory and microbiology Laboratory Tests 08/12/25 05:53 Test 08/12/25 05:53 Range/Units Serum Glucose 92 74-106 mg/dL Problem List Hypotension. NSTEMI (non-ST elevated myocardial infarction). DM. HLD. Assessment/Plan Continued all current supportive medical care. Morphine and [place] for pain management. Aspirin, Lipitor, Plavix. Hydralazine. Nitro SL. Diuretics with Lasix. Additional plan as per the hospital course. Plan discussed with: Patient JENAE ROBERTS MD Aug 12, 2025 13:03
== END 2025-08-12 15:28 | disposition home or self-care (01) | DRG 280 ==
LOC: ER 15:38 → EDBD 15:38 → OVERFLOW 19:00 → TELE-WESTW 08-10 22:07 → WEST WING 08-11 13:20 → TELE-WESTW 08-12 07:54
PROVIDERS: ADMIT Student in an Organized Health Care Education/Training Program; ATTEND Student in an Organized Health Care Education/Training Program
DX: I21.4 Non-ST elevation (NSTEMI) myocardial infarction (principal); I50.21 Acute systolic (congestive) heart failure; J96.01 Acute respiratory failure with hypoxia; R57.0 Cardiogenic shock; J15.69 Pneumonia due to other Gram-negative bacteria; J15.9 Unspecified bacterial pneumonia; N17.0 Acute kidney failure with tubular necrosis; E87.20 Acidosis, unspecified; I13.0 Hypertensive heart and chronic kidney disease with heart failure and stage 1 through stage 4 chronic kidney disease, or unspecified chronic kidney disease; N18.4 Chronic kidney disease, stage 4 (severe); D64.9 Anemia, unspecified; E11.22 Type 2 diabetes mellitus with diabetic chronic kidney disease; E66.9 Obesity, unspecified; Z20.822 Contact with and (suspected) exposure to COVID-19; E78.5 Hyperlipidemia, unspecified; J98.4 Other disorders of lung; R74.01 Elevation of levels of liver transaminase levels; K83.8 Other specified diseases of biliary tract; G89.29 Other chronic pain; I25.10 Atherosclerotic heart disease of native coronary artery without angina pectoris; Z90.49 Acquired absence of other specified parts of digestive tract; Z80.41 Family history of malignant neoplasm of ovary; Z80.3 Family history of malignant neoplasm of breast; Z82.49 Family history of ischemic heart disease and other diseases of the circulatory system; Z83.3 Family history of diabetes mellitus; Z68.32 Body mass index [BMI] 32.0-32.9, adult; Z82.3 Family history of stroke
CPT/HCPCS: 36415; 36600; 71045; 76705; 78582; 80048; 80053; 81001; 82570; 82805; 82962; 83540; 83550; 83605; 83880; 84156; 84300; 84484; 85025; 85379; 85610; 85730; 86803; 87040; 87081; 87340; 87426; 93005; 93306; 94640; 96365; 99291; G0378; J1815